=== PATIENT | female | born 1945 | race Caucasian/White ===

== ENCOUNTER → 2017-04-09 | Outpatient (CLI) | payer MEDICARE ==
--- NOTE | 2017-04-09 14:02 | US ---
EXAMINATION TYPE: US carotid duplex BILAT DATE OF EXAM: 04/09/2017 COMPARISON: Prior carotid ultrasound February 01, 2013 CLINICAL HISTORY: I65.23 Carotid occlusive disease per order. EXAM MEASUREMENTS: RIGHT: Peak Systolic Velocity (PSV) cm/sec ----- Right CCA: 50.3 ----- Right ICA: 60.2 ----- Right ECA: 72.4 ICA/CCA ratio: 1.2 RIGHT: End Diastole cm/sec ----- Right CCA: 17.5 ----- Right ICA: 60.2 ----- Right ECA: 0.0 LEFT: Peak Systolic Velocity (PSV) cm/sec ----- Left CCA: 55.9 ----- Left ICA: 66.0 ----- Left ECA: 68.0 ICA/CCA ratio: 1.2 LEFT: End Diastole cm/sec ----- Left CCA: 11.1 ----- Left ICA: 25.8 ----- Left ECA: 0.0 VERTEBRALS (direction of flow): Right Vertebral: Antegrade Left Vertebral: Antegrade Slight bilateral wall thickening. No elevated velocities or significant stenosis. Plaque seen in bi lateral bulbs. Grayscale images redemonstrate mild peripheral plaque at bilateral carotid bulbs, left greater than r ight. Velocity measurements and ratios remain within normal limits in visualized portion of both inte rnal carotid arteries. IMPRESSION: Mild atherosclerotic change bilaterally redemonstrated without hemodynamically significa nt stenosis clearly seen in either internal carotid artery. Criteria for Assigning % of Stenosis / Diameter reduction (Estimation based on the indirect measurements of the internal carotid artery velocities (ICA PSV). 1. Normal (no stenosis)=ICA PSV < 125 cm/s: ratio < 2.0: ICA EDV<40 cm/s. 2. Less than 50% stenosis=ICA PSV < 125 cm/s: ratio < 2.0: ICA EDV<40 cm/s. 3. 50 to 69% stenosis=ICA PSV of 125 to 230 cm/s: ration 2.0 ? 4.0: ICA EDV 40-100 cm/s. 4. Greater than 70% stenosis to near occlusion= ICA PSV > 230 cm/s: ratio > 4.0: ICA EDV > 100 cm/s. 5. Near occlusion= ICA PSV velocities may be low or undetectable: variable ratio and ICA EDV. 6. Total occlusion=unable to detect flow.
== END ==
LOC: RADUSWWP 12:42
PROVIDERS: ATTEND Family Medicine
DX: I70.90 Unspecified atherosclerosis (principal)
CPT/HCPCS: 93880

== ENCOUNTER → 2017-05-14 | Outpatient (CLI) | payer MEDICARE ==
--- NOTE | 2017-05-15 08:55 | MM ---
Reason for exam: screening (asymptomatic). Last mammogram was performed 1 year and 3 months ago. History: Patient is postmenopausal, has history of endometrial cancer at age 33, and is nulliparous. Family history of breast cancer in maternal aunt at age 55. Physical Findings: A clinical breast exam by your physician is recommended on an annual basis and results should be correlated with mammographic findings. MG 3D Screening Mammo W/Cad Bilateral CC and MLO view(s) were taken. Prior study comparison: February 02, 2016, bilateral MG 3d screening mammo w/cad. August 09, 2004, bilateral diagnostic mammogram. The breast tissue is extremely dense which could obscure a lesion on mammography. Stable benign calcifications. There is chronic nodularity bilaterally. There is no dominant lesion. No significant changes when compared with prior studies. ASSESSMENT: Benign, BI-RAD 2 RECOMMENDATION: Routine screening mammogram of both breasts in 1 year.
== END | disposition home or self-care (01) ==
LOC: RADMAMWWP 16:31
PROVIDERS: ATTEND Family Medicine
DX: Z12.31 Encounter for screening mammogram for malignant neoplasm of breast (principal)
CPT/HCPCS: 77063; G0202

== ENCOUNTER → 2017-10-17 | Outpatient (CLI) | payer MEDICARE ==
[2017-10-17 16:59] LABS: HCT 32.7 % (34.0-46.0); HGB 10.4 gm/dL (11.4-16.0); MCH 29.1 pg (25.0-35.0); MCHC 31.8 g/dL (31.0-37.0); MCV 91.6 fL (80.0-100.0); Mean Platelet Volume 6.4; Platelet Count 335 k/uL (150-450); RBC 3.57 m/uL (3.80-5.40); RDW 12.8 % (11.5-15.5); WBC 7.1 k/uL (3.8-10.6)
[2017-10-17 17:15] LABS: Albumin 4.4 g/dL (3.5-5.0); Calcium 9.9 mg/dL (8.4-10.2); Phosphorus 2.9 mg/dL (2.5-4.5); Potassium 4.5 mmol/L (3.5-5.1); Total Bilirubin 0.3 mg/dL (0.2-1.3); Total Protein 7.8 g/dL (6.3-8.2)
[2017-10-17 17:33] LABS: Appearance,Urine Clear (Clear); Bilirubin,Urine Negative (Negative); Blood,Urine Negative (Negative); Color,Urine Light Yellow; Glucose,Urine (UA) 3+ (Negative); Hyaline Casts,Urine 17 /lpf (0-2); Ketones,Urine Negative (Negative); Leukocyte Esterase,Urine Large (Negative); Mucus,Urine Rare /hpf; Nitrite,Urine Negative (Negative); Protein,Urine Negative (Negative); RBC,Urine 3 /hpf (0-5); Specific Gravity,Urine 1.008 (1.001-1.035); Urobilinogen,Urine <2.0 mg/dL (<2.0); WBC,Urine 13 /hpf (0-5)
== END | disposition home or self-care (01) ==
LOC: LABWHC1 16:35
PROVIDERS: ATTEND Internal Medicine Nephrology
DX: N39.0 Urinary tract infection, site not specified (principal); E83.39 Other disorders of phosphorus metabolism; D64.9 Anemia, unspecified
CPT/HCPCS: 36415; 80053; 81001; 84100; 85027

== ENCOUNTER → 2017-11-05 | Outpatient (CLI) | payer MEDICARE ==
--- NOTE | 2017-11-05 10:04 | US ---
EXAMINATION TYPE: US kidneys/renal and bladder DATE OF EXAM: 11/05/2017 COMPARISON: NONE CLINICAL HISTORY: N18.3 Chronic Kidney Disease Stage 3. EXAM MEASUREMENTS: Right Kidney: 9.0 x 4.8 x 4.1cm Left Kidney: 9.9 x 4.4 x 5.1 cm Post Void Residual Volume: none visualized to measure Right Kidney: upper mid cortical cyst is seen = 0.7 x 0.7 x 0.5cm; couple of microcalcifications are noted mid pole; thinner renal cortex Left Kidney: lateral cortical cyst is imaged = 0.7 x 0.6 x 0.6cm; microcalcification is noted lateral mid pole Bladder: not fully distended Bilateral Jets seen: only right ureteral jet was seen Normal Post Void Residual: yes There is no evidence for hydronephrosis at this point in time. IMPRESSION: 1. Bladder is limited in distention. Evaluation therefore limited. 2. There is increased renal cortical echogenicity correlate for chronic medical renal disease. 3. Nonobstructing tiny bilateral renal calculi.
== END | disposition home or self-care (01) ==
LOC: RADUSWWP 09:03
PROVIDERS: ATTEND Internal Medicine Nephrology
DX: N20.0 Calculus of kidney (principal); N18.3 Chronic kidney disease, stage 3 (moderate)
CPT/HCPCS: 76770

== ENCOUNTER → 2017-11-12 | Outpatient (CLI) | payer MEDICARE ==
[2017-11-12 12:47] LABS: Appearance,Urine Clear (Clear); Bilirubin,Urine Negative (Negative); Blood,Urine Negative (Negative); Color,Urine Light Yellow; Glucose,Urine (UA) 4+ (Negative); Ketones,Urine Negative (Negative); Leukocyte Esterase,Urine Negative (Negative); Nitrite,Urine Negative (Negative); Protein,Urine Negative (Negative); Specific Gravity,Urine 1.007 (1.001-1.035); Urobilinogen,Urine <2.0 mg/dL (<2.0)
[2017-11-12 12:55] LABS: Basophils # (A) 0.1 k/uL (0-0.2); Basophils % (A) 1 %; Eosinophils # (A) 0.2 k/uL (0-0.7); Eosinophils % (A) 2 %; HCT 32.1 % (34.0-46.0); Hypochromasia Slight; Lymphocytes # (A) 1.4 k/uL (1.0-4.8); Lymphocytes % (A) 21 %; MCH 28.3 pg (25.0-35.0); MCHC 31.1 g/dL (31.0-37.0); Mean Platelet Volume 6.5; Monocytes # (A) 0.4 k/uL (0-1.0); Monocytes % (A) 5 %; Neutrophils # (A) 4.5 k/uL (1.3-7.7); Neutrophils % (A) 67 %; Platelet Count 331 k/uL (150-450); RBC 3.53 m/uL (3.80-5.40); RDW 13.3 % (11.5-15.5); WBC 6.7 k/uL (3.8-10.6)
[2017-11-12 13:29] LABS: Albumin 4.1 g/dL (3.5-5.0); Calcium 10.1 mg/dL (8.4-10.2); Magnesium 1.4 mg/dL (1.6-2.3); Phosphorus 3.5 mg/dL (2.5-4.5); Potassium 4.8 mmol/L (3.5-5.1); Uric Acid 5.6 mg/dL (3.7-7.4)
[2017-11-12 13:45] LABS: Creatinine,Urine Random 33.6 mg/dL
[2017-11-12 19:11] LABS: Iron Saturation 15.63 (12.00-45.00)
[2017-11-12 19:19] LABS: Vitamin D 25 Hydroxy 31.1 ng/mL (30.0-100.0)
[2017-11-12 20:33] LABS: Parathyroid Hormone Intact 19.7 pg/mL (14.0-72.0)
[2017-11-13 16:25] LABS: Albumin 4.05 g/dL (3.80-4.90); Gamma Globulin 0.97 g/dL (0.70-1.50)
== END | disposition home or self-care (01) ==
LOC: LABWHC1 12:02
PROVIDERS: ATTEND Internal Medicine Nephrology
DX: N18.3 Chronic kidney disease, stage 3 (moderate) (principal); D64.9 Anemia, unspecified; E55.9 Vitamin D deficiency, unspecified; E21.3 Hyperparathyroidism, unspecified; M10.9 Gout, unspecified; N39.0 Urinary tract infection, site not specified; R80.9 Proteinuria, unspecified
CPT/HCPCS: 36415; 80048; 81003; 82040; 82306; 82570; 82728; 83540; 83550; 83735; 83970; 84100; 84156; 84165; 84550; 85025; 86335

== ENCOUNTER → 2018-01-14 | Outpatient (CLI) | payer MEDICARE ==
--- NOTE | 2018-01-15 07:47 | US ---
EXAMINATION TYPE: US thyroid st tissue head/neck DATE OF EXAM: 01/14/2018 COMPARISON: EXAMINATION TYPE: US thyroid st tissue head/neck DATE OF EXAM: 01/14/2018 COMPARISON: NONE CLINICAL HISTORY: R59.9 ENLARGED LYMPH. Palpable areas bilaterally FINDINGS/TECHNIQUE: Targeted sonographic images were performed of the neck in the area of the patient 's palpable abnormality. 0.6cm normal appearing lymph nodes seen bilaterally where patient feels them. No abnormality seen. IMPRESSION: Sonographically normal appearing lymph nodes in both size and morphology and the patient 's area of palpable abnormality.
== END | disposition home or self-care (01) ==
LOC: RADUSWWP 15:58
PROVIDERS: ATTEND Family Medicine
DX: R59.9 Enlarged lymph nodes, unspecified (principal)
CPT/HCPCS: 76536

== ENCOUNTER 2018-03-30 09:52 | Day surgery (SDC) | payer MEDICARE ==
[2018-03-26 15:25] VITALS: BMI 23.1
[~2018-03-30 09:52] MED LIST: CLINDAMYCIN 900 MG in DEXTROSE 5% IN WATER 50 ML IVPB ONE; SODIUM CHLORIDE 0.9% 1,000 ML IV SCH
[2018-03-30 10:21] VITALS: RESP 16; TEMP 99
[2018-03-30] MEDS ORDERED: LIDOCAINE 1% INJ 10MG/ML (20 ML MDV) ONE (10:44)
[2018-03-30 10:46] LABS: Glucose,Whole Blood 95 mg/dL (75-99)
[2018-03-30] MEDS ORDERED: MIDAZOLAM 2 MG/2 ML VIAL ONE (11:02)
[2018-03-30] MEDS ORDERED: MIDAZOLAM 2 MG/2 ML VIAL IV ONE (11:04)
--- NOTE | 2018-03-30 11:15 | P.PCN ---
Preoperative Diagnosis: Loop monitor implant Primary physicians: Dr. Roe Vehicle Modification Technician: Dr. Bermudez Indication: Recurrent syncope Patient was brought to the EP lab in a fasting state. Written informed consent was obtained prior to the procedure. The left pectoral area was prepped and draped per protocol. Intravenous antibiotic was administered preoperatively. A subcutaneous Loop monitor was implanted successfully and the wound was closed per protocol. The device was programmed to detect significant sania- arrhythmic and tachy-arrhythmic events, per protocol. Device and programming details: Syncope protocol Patient underwent EP procedure under conscious sedation/moderate sedation, monitoring of the level of consciousness and physiologic parameters including but not limited to vital signs and oxygenation. Patient tolerated the procedure well without any acute complications. Start time: 1104 Stop time: 1110 Condition: stable
[2018-03-30 11:41] VITALS: BP 122/60; PULSE 73
== END 2018-03-30 12:02 | disposition home or self-care (01) ==
LOC: CATHEP 09:52
PROVIDERS: ATTEND Internal Medicine Clinical Cardiac Electrophysiology
DX: R55 Syncope and collapse (principal); E78.5 Hyperlipidemia, unspecified; E11.22 Type 2 diabetes mellitus with diabetic chronic kidney disease; I12.9 Hypertensive chronic kidney disease with stage 1 through stage 4 chronic kidney disease, or unspecified chronic kidney disease; N18.3 Chronic kidney disease, stage 3 (moderate); D64.9 Anemia, unspecified; R54 Age-related physical debility; J44.9 Chronic obstructive pulmonary disease, unspecified; E07.9 Disorder of thyroid, unspecified; Z82.49 Family history of ischemic heart disease and other diseases of the circulatory system; Z79.890 Hormone replacement therapy; Z79.84 Long term (current) use of oral hypoglycemic drugs; Z79.899 Other long term (current) drug therapy; Z88.0 Allergy status to penicillin
CPT/HCPCS: 33282; C1764; J2250

== ENCOUNTER → 2018-04-01 | Outpatient (CLI) | payer MEDICARE ==
[2018-04-01 11:57] LABS: Appearance,Urine Clear (Clear); Bilirubin,Urine Negative (Negative); Blood,Urine Negative (Negative); Color,Urine Light Yellow; Glucose,Urine (UA) 4+ (Negative); Ketones,Urine Negative (Negative); Leukocyte Esterase,Urine Negative (Negative); Nitrite,Urine Negative (Negative); PH, Urine 6.5 (5.0-8.0); Protein,Urine Negative (Negative); Specific Gravity,Urine 1.007 (1.001-1.035); Urobilinogen,Urine <2.0 mg/dL (<2.0)
[2018-04-01 12:01] LABS: Basophils # (A) 0.1 k/uL (0-0.2); Basophils % (A) 1 %; Eosinophils # (A) 0.2 k/uL (0-0.7); Eosinophils % (A) 3 %; HCT 35.6 % (34.0-46.0); HGB 11.7 gm/dL (11.4-16.0); Lymphocytes # (A) 1.3 k/uL (1.0-4.8); Lymphocytes % (A) 19 %; MCHC 32.8 g/dL (31.0-37.0); MCV 97.7 fL (80.0-100.0); Mean Platelet Volume 6.2; Monocytes # (A) 0.3 k/uL (0-1.0); Monocytes % (A) 5 %; Neutrophils % (A) 70 %; Platelet Count 301 k/uL (150-450); RBC 3.65 m/uL (3.80-5.40); RDW 12.6 % (11.5-15.5); WBC 7.1 k/uL (3.8-10.6)
[2018-04-01 12:52] LABS: Magnesium 1.5 mg/dL (1.6-2.3); Phosphorus 3.4 mg/dL (2.5-4.5); Potassium 4.6 mmol/L (3.5-5.1); Uric Acid 6.1 mg/dL (3.7-7.4)
[2018-04-01 13:56] LABS: Creatinine,Urine Random 25.2 mg/dL
[2018-04-01 20:01] LABS: Parathyroid Hormone Intact 17.3 pg/mL (14.0-72.0)
[2018-04-01 20:52] LABS: Iron Saturation 30.25 (12.00-45.00)
[2018-04-01 21:02] LABS: Vitamin D 25 Hydroxy 27.7 ng/mL (30.0-100.0)
== END | disposition home or self-care (01) ==
LOC: LABWHC1 11:18
PROVIDERS: ATTEND Nurse Practitioner Family
DX: N18.3 Chronic kidney disease, stage 3 (moderate) (principal); D63.1 Anemia in chronic kidney disease; E55.9 Vitamin D deficiency, unspecified; E21.3 Hyperparathyroidism, unspecified; M10.9 Gout, unspecified; N39.0 Urinary tract infection, site not specified; R80.9 Proteinuria, unspecified
CPT/HCPCS: 36415; 80048; 81003; 82306; 82570; 82728; 83540; 83550; 83735; 83970; 84100; 84156; 84550; 85025

== ENCOUNTER 2018-05-22 08:27 | Observation (INO) | payer MEDICARE ==
[2018-05-22] MEDS ORDERED: RX INFO: IV CONTRAST WAS GIVEN 1 EACH MISC MISCELLANE PRN (08:58)
--- NOTE | 2018-05-22 09:02 | ED ---
General Adult HPI - General Chief complaint: Fall Stated complaint: fall Time Seen by Provider: 05/22/18 08:42 Source: patient, RN notes reviewed Mode of arrival: wheelchair Limitations: no limitations - History of Present Illness Initial comments: Patient 73-year-old female presenting to the emergency room today with a chief complaint of a fall that occurred approximately 2 hours ago. Patient does admit that she was sleeping in her chair when she realized the time was cleared. Got up quickly took a few steps lost her balance falling down to some shelving on the left side. Does admit to some pain to the left shoulder and left upper chest. Patient also notes pain to the left cheek and chin area. Patient states she did not lose consciousness. Did not become lightheaded or dizzy. Denies any nausea or vomiting. Denies headache, any new pain to neck, back, legs. Patient denies any chest pain, shortness breath or difficulty breathing. Denies any visual change. - Related Data Home Medications Medication Instructions Recorded Confirmed Citalopram Hydrobromide [CeleXA] 40 mg PO DAILY 10/15/14 05/22/18 LORazepam [Ativan] 0.5 mg PO TID PRN 10/15/14 05/22/18 Naproxen 500 mg PO DAILY 10/15/14 05/22/18 Potassium Chloride [Klor-Con 10] 10 meq PO MOWEFR 10/15/14 05/22/18 Simvastatin [Zocor] 20 mg PO DAILY 10/15/14 05/22/18 Meclizine [Antivert] 25 mg PO TID PRN 09/18/15 05/22/18 Furosemide [Lasix] 40 mg PO MOWEFR 05/30/16 05/22/18 Levothyroxine Sodium [Synthroid] 100 mcg PO DAILY 05/30/16 05/22/18 Canagliflozin/Metformin HCl 1 each PO BID 03/26/18 05/22/18 [Invokamet 150-1,000 mg Tablet] Acetaminophen [Tylenol] 500 mg PO Q4-6H PRN 05/22/18 05/22/18 Empagliflozin/Metformin HCl 1 tab PO DAILY 05/22/18 05/22/18 [Synjardy 12.5-500 mg Tablet] Magnesium 300 mg PO DAILY 05/22/18 05/22/18 Metoclopramide [Reglan] 10 mg PO DAILY 05/22/18 05/22/18 Omeprazole [PriLOSEC] 20 mg PO DAILY 05/22/18 05/22/18 Timolol [Betimol 0.5% Ophth Soln] 1 drop BOTH EYES DAILY 05/22/18 05/22/18 Vit C/E/Zn/Coppr/Lutein/Zeaxan 2 cap PO DAILY 05/22/18 05/22/18 [Preservision Areds 2 Softgel] busPIRone HCL 30 mg PO HS 05/22/18 05/22/18 traMADol HCL [Ultram] 50 mg PO HS PRN 05/22/18 05/22/18 Allergies Allergy/AdvReac Type Severity Reaction Status Date / Time Penicillins Allergy ANNIE'S Verified 05/22/18 08:57 SYNDROME Review of Systems ROS Statement: Those systems with pertinent positive or pertinent negative responses have been documented in the HPI. ROS Other: All systems not noted in ROS Statement are negative. Past Medical History Past Medical History: Diabetes Mellitus, Fibromyalgia, Osteoarthritis (OA), Renal Disease Additional Past Medical History / Comment(s): depression, uterine ca. recent unexplained weight loss, onset of frequent dizziness x 1 month. stage 3 kidney failure History of Any Multi-Drug Resistant Organisms: None Reported Past Surgical History: Adenoidectomy, Back Surgery, Bariatric Surgery, Cholecystectomy, Hysterectomy, Tonsillectomy Additional Past Surgical History / Comment(s): implanted heart monitor Past Psychological History: Anxiety, Depression Smoking Status: Never smoker Past Alcohol Use History: None Reported Past Drug Use History: None Reported General Exam - General Exam Comments Initial Comments: General: The patient is awake and alert, in no distress, and does not appear acutely ill. Eye: Pupils are equal, round and reactive to light, extra-ocular movements are intact. No nystagmus. There is normal conjunctiva bilaterally. No signs of icterus. Ears, nose, mouth and throat: There are moist mucous membranes and no oral lesions. Patient does have tenderness to the left cheek and left lower jaw. Some bruising in this area. Able to fully open and close mouth. Neck: The neck is supple, there is no tenderness or JVD. Cardiovascular: There is a regular rate and rhythm. No murmur, rub or gallop is appreciated. Respiratory: Lungs are clear to auscultation, respirations are non-labored, breath sounds are equal. No wheezes, stridor, rales, or rhonchi. Gastrointestinal: Soft, non-distended, non-tender abdomen without masses or organomegaly noted. There is no rebound or guarding present. No CVA tenderness. Musculoskeletal: Normal ROM. No step-off deformity to the cervical, thoracic or lumbar spine. Does have tenderness over the anterior left shoulder. Tender over the left clavicle and left upper anterior ribs. Strength 5/5. Sensation intact. Pulses equal bilaterally 2+. Neurological: A&O x 3. CN II-XII intact, There are no obvious motor or sensory deficits. Coordination appears grossly intact. Speech is normal. Skin: Hematoma located to the left anterior chest wall and left cheek. Psychiatric: Cooperative, appropriate mood & affect, normal judgment. Limitations: no limitations Course Vital Signs 05/22/18 05/22/18 05/22/18 08:29 10:37 12:00 Temperature 98.2 F Pulse Rate 75 85 90 Respiratory 18 17 17 Rate Blood Pressure 111/59 119/58 120/58 O2 Sat by Pulse 99 96 98 Oximetry Medical Decision Making - Medical Decision Making Patient's a CT of the head and neck have been reviewed. Does show evidence for old blowout fracture on the left. Patient's CT of the chest was negative for any acute abnormalities. Patient's labs been reviewed. Does show mildly elevated BUN/creatinine consistent with patient's previous labs. Patient had syncopal episode earlier today. Case discussed with attending physician Dr. Vega who did discuss the case with Dr. Justin who recommends admission EEG, carotid duplex, echocardiogram, with cardiology consult. - Lab Data Result diagrams: 05/22/18 09:09 05/22/18 09:09 Lab Results 05/22/18 05/22/18 05/22/18 Range/Units 09:09 09:09 09:09 WBC 7.6 (3.8-10.6) k/uL RBC 3.55 L (3.80-5.40) m/uL Hgb 11.2 L (11.4-16.0) gm/dL Hct 34.3 (34.0-46.0) % MCV 96.7 (80.0-100.0) fL MCH 31.6 (25.0-35.0) pg MCHC 32.6 (31.0-37.0) g/dL RDW 12.2 (11.5-15.5) % Plt Count 289 (150-450) k/uL Neutrophils % 75 % Lymphocytes % 16 % Monocytes % 5 % Eosinophils % 2 % Basophils % 1 % Neutrophils # 5.7 (1.3-7.7) k/uL Lymphocytes # 1.2 (1.0-4.8) k/uL Monocytes # 0.4 (0-1.0) k/uL Eosinophils # 0.2 (0-0.7) k/uL Basophils # 0.0 (0-0.2) k/uL PT (9.0-12.0) sec INR (<1.2) APTT (22.0-30.0) sec Sodium 139 (137-145) mmol/L Potassium 4.9 (3.5-5.1) mmol/L Chloride 100 (98-107) mmol/L Carbon Dioxide 26 (22-30) mmol/L Anion Gap 13 mmol/L BUN 37 H (7-17) mg/dL Creatinine 1.20 H (0.52-1.04) mg/dL Est GFR (CKD-EPI)AfAm 52 (>60 ml/min/1.73 sqM) Est GFR (CKD-EPI)NonAf 45 (>60 ml/min/1.73 sqM) Glucose 122 H (74-99) mg/dL Calcium 10.1 (8.4-10.2) mg/dL Total Bilirubin 0.3 (0.2-1.3) mg/dL AST 21 (14-36) U/L ALT 18 (9-52) U/L Alkaline Phosphatase 70 (38-126) U/L Total Creatine Kinase 47 (30-135) U/L CK-MB (CK-2) 1.2 (0.0-2.4) ng/mL CK-MB (CK-2) Rel Index 2.6 Troponin I <0.012 (0.000-0.034) ng/mL Total Protein 7.2 (6.3-8.2) g/dL Albumin 4.3 (3.5-5.0) g/dL Urine Color Urine Appearance (Clear) Urine pH (5.0-8.0) Ur Specific Eden (1.001-1.035) Urine Protein (Negative) Urine Glucose (UA) (Negative) Urine Ketones (Negative) Urine Blood (Negative) Urine Nitrite (Negative) Urine Bilirubin (Negative) Urine Urobilinogen (<2.0) mg/dL Ur Leukocyte Esterase (Negative) Urine RBC (0-5) /hpf Urine WBC (0-5) /hpf Ur Squamous Epith Cells (0-4) /hpf Hyaline Casts (0-2) /lpf 05/22/18 05/22/18 Range/Units 09:09 09:09 WBC (3.8-10.6) k/uL RBC (3.80-5.40) m/uL Hgb (11.4-16.0) gm/dL Hct (34.0-46.0) % MCV (80.0-100.0) fL MCH (25.0-35.0) pg MCHC (31.0-37.0) g/dL RDW (11.5-15.5) % Plt Count (150-450) k/uL Neutrophils % % Lymphocytes % % Monocytes % % Eosinophils % % Basophils % % Neutrophils # (1.3-7.7) k/uL Lymphocytes # (1.0-4.8) k/uL Monocytes # (0-1.0) k/uL Eosinophils # (0-0.7) k/uL Basophils # (0-0.2) k/uL PT 9.6 (9.0-12.0) sec INR 1.0 (<1.2) APTT 21.7 L (22.0-30.0) sec Sodium (137-145) mmol/L Potassium (3.5-5.1) mmol/L Chloride (98-107) mmol/L Carbon Dioxide (22-30) mmol/L Anion Gap mmol/L BUN (7-17) mg/dL Creatinine (0.52-1.04) mg/dL Est GFR (CKD-EPI)AfAm (>60 ml/min/1.73 sqM) Est GFR (CKD-EPI)NonAf (>60 ml/min/1.73 sqM) Glucose (74-99) mg/dL Calcium (8.4-10.2) mg/dL Total Bilirubin (0.2-1.3) mg/dL AST (14-36) U/L ALT (9-52) U/L Alkaline Phosphatase (38-126) U/L Total Creatine Kinase (30-135) U/L CK-MB (CK-2) (0.0-2.4) ng/mL CK-MB (CK-2) Rel Index Troponin I (0.000-0.034) ng/mL Total Protein (6.3-8.2) g/dL Albumin (3.5-5.0) g/dL Urine Color Light Yellow Urine Appearance Clear (Clear) Urine pH 6.0 (5.0-8.0) Ur Specific Eden 1.011 (1.001-1.035) Urine Protein Negative (Negative) Urine Glucose (UA) 4+ H (Negative) Urine Ketones Negative (Negative) Urine Blood Negative (Negative) Urine Nitrite Negative (Negative) Urine Bilirubin Negative (Negative) Urine Urobilinogen <2.0 (<2.0) mg/dL Ur Leukocyte Esterase Trace H (Negative) Urine RBC 1 (0-5) /hpf Urine WBC 1 (0-5) /hpf Ur Squamous Epith Cells <1 (0-4) /hpf Hyaline Casts 3 H (0-2) /lpf Disposition Clinical Impression: Syncope, Chest wall contusion, Facial contusion Disposition: ADMITTED IP TO THIS HOSP Condition: Stable Is patient prescribed a controlled substance at d/c from ED?: No Referrals: Herberth Roe DO [Primary Care Provider] - 1-2 days Time of Disposition: 13:30
[2018-05-22] MEDS ORDERED: SODIUM CHLORIDE 0.9% 1,000 ML IV STA (09:20)
[2018-05-22 09:46] LABS: Basophils % (A) 1 %; Eosinophils # (A) 0.2 k/uL (0-0.7); Eosinophils % (A) 2 %; HCT 34.3 % (34.0-46.0); HGB 11.2 gm/dL (11.4-16.0); Lymphocytes # (A) 1.2 k/uL (1.0-4.8); Lymphocytes % (A) 16 %; MCH 31.6 pg (25.0-35.0); MCHC 32.6 g/dL (31.0-37.0); MCV 96.7 fL (80.0-100.0); Mean Platelet Volume 6.8; Monocytes # (A) 0.4 k/uL (0-1.0); Monocytes % (A) 5 %; Neutrophils # (A) 5.7 k/uL (1.3-7.7); Neutrophils % (A) 75 %; Platelet Count 289 k/uL (150-450); RBC 3.55 m/uL (3.80-5.40); RDW 12.2 % (11.5-15.5); WBC 7.6 k/uL (3.8-10.6)
[2018-05-22 09:49] LABS: Appearance,Urine Clear (Clear); Bilirubin,Urine Negative (Negative); Blood,Urine Negative (Negative); Color,Urine Light Yellow; Glucose,Urine (UA) 4+ (Negative); Hyaline Casts,Urine 3 /lpf (0-2); Ketones,Urine Negative (Negative); Leukocyte Esterase,Urine Trace (Negative); Nitrite,Urine Negative (Negative); Protein,Urine Negative (Negative); RBC,Urine 1 /hpf (0-5); Specific Gravity,Urine 1.011 (1.001-1.035); Squamous Epithelial Cell,Urine <1 /hpf (0-4); Urobilinogen,Urine <2.0 mg/dL (<2.0); WBC,Urine 1 /hpf (0-5)
[2018-05-22 09:55] LABS: Albumin 4.3 g/dL (3.5-5.0); Calcium 10.1 mg/dL (8.4-10.2); Potassium 4.9 mmol/L (3.5-5.1); Total Bilirubin 0.3 mg/dL (0.2-1.3); Total Protein 7.2 g/dL (6.3-8.2)
[2018-05-22 10:02] LABS: Creatine Kinase 47 U/L (30-135)
[2018-05-22 10:11] LABS: Prothrombin Time 9.6 sec (9.0-12.0)
[2018-05-22 10:14] LABS: Partial Thromboplastin Time 21.7 sec (22.0-30.0)
[2018-05-22 10:15] LABS: Creatine Kinase MB 1.2 ng/mL (0.0-2.4); Troponin I <0.012 ng/mL (0.000-0.034)
--- NOTE | 2018-05-22 10:52 | CT ---
EXAMINATION TYPE: CT brain kiley jama DATE OF EXAM: 05/22/2018 COMPARISON: 07/24/2016 HISTORY: Pain post fall CT DLP: 1391.[address] of the brain was performed. The ventricles, basal cisterns and sulci overlying the cerebral convexities demonstrate enlargement. There is no evidence for intracranial hemorrhage or sulcal effacement. There is decreased attenuatio n about the periventricular white matter and deep white matter of both cerebral hemispheres, compatib le with chronic small vessel ischemia. No mass effects are seen. If symptoms persist consider MRI. Osseous calvarium is intact. IMPRESSION: 1. Age related atrophic and chronic small vessel ischemic change without acute intracranial process seen at this time. CT Cervical Spine: Unenhanced CT of the cervical spine was performed with bone and soft tissue window settings submitted . Coronal and sagittal reconstruction is obtained. Chronic anterolisthesis of C3 on C4 of 3 mm and C4 on C5 of 2 mm. No evidence for acute cervical frac ture . Scattered degenerative disc disease and spondylosis. Biapical scarring. IMPRESSION: 1. No evidence for acute fracture or subluxation of the cervical spine.
--- NOTE | 2018-05-22 10:55 | CT ---
EXAMINATION TYPE: CT facial bones wo con DATE OF EXAM: 05/22/2018 COMPARISON: May 30, 2016 HISTORY: Pain post fall. CT DLP: 571.[address] of the facial bones was performed in the axial and coronal planes. Bone and soft tissu e window settings are submitted. No significant soft tissue swelling is appreciated. I do not see evidence for acute displaced facial bone fracture or depressed facial bone fracture. T here appears be chronic a blowout fracture involving the floor of the left orbit without muscular ent rapment. The globes are intact. Paranasal sinuses are well-aerated. IMPRESSION: 1. No evidence for acute depressed or displaced facial bone fracture. 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
--- NOTE | 2018-05-22 11:35 | CT ---
EXAMINATION TYPE: CT chest w con DATE OF EXAM: 05/22/2018 COMPARISON: HISTORY: Pain post fall CT DLP: 395.39 mGycm Automated exposure control for dose reduction was used. CONTRAST: CT scan of the chest is performed with IV Contrast, patient injected with 80 mL of Isovue 300. FINDINGS: LUNGS: The lungs are grossly clear, there is no concerning parenchymal mass or nodule identified. T here is no pleural effusion or pneumothorax seen. The tracheobronchial tree is patent. Linear atelec tasis left lung base. MEDIASTINUM: There are no greater than 1 cm hilar or mediastinal lymph nodes. No pericardial effusi on is seen. Thoracic aorta is of normal caliber. The heart is not enlarged. UPPER ABDOMEN: No significant abnormality appreciated. OTHER: Small sliding-type hiatal hernia. IMPRESSION: No visible traumatic injury to the chest at this time.
[2018-05-22] MEDS ORDERED: NALOXONE 0.4 MG/ML 1 ML VIAL IV PRN (13:51)
[2018-05-22] MEDS ORDERED: ONDANSETRON 4 MG/2 ML VIAL IVP PRN (13:51)
[2018-05-22] MEDS ORDERED: SODIUM CHLORIDE 0.9% 1,000 ML IV ONE (13:51)
[2018-05-22] MEDS ORDERED: MECLIZINE 25 MG TAB PO PRN (13:55)
[2018-05-22] MEDS ORDERED: LORazepam 0.5 MG TAB PO PRN (13:55)
--- NOTE | 2018-05-22 14:23 | P.HPIM ---
History of Present Illness H&P Date: 05/22/18 Chief Complaint: fall This is a 73-year-old pleasant lady patient of Dr. Bhupinder Swenson. Underlying history of diabetes mellitus type 2, fibromyalgia, CK D, uterine cancer, dysthymia admitted to the hospital secondary to fall at home. Apparently patient was sleeping in her chair, and when she woke up she got up and took a few steps, lost her balance, was lightheaded and fell on the left side. This occurred 2 hours prior to admission. Patient has pain in the left shoulder, left upper chest, and left cheek patient denies any nausea vomiting or diarrhea, no headache, no neck pain. No shortness of breath and no visible changes. No medication changes from her PCP. patient has an loop recorder placed 2 mos ago. no nuerology. intermittently has spells while sitting down and just taking to people. In the emergency room, she was seen, EKG CAT scan of the brain and CT of the chest failed to reveal any fractures, there is no bleed, CAT scan of the chest only shows some small sliding type hiatal hernia, linear atelectasis left lung, no mass no pleural effusion no pneumothorax CT of the brain shows small valve disease with atrophy, no bleed, cervical spine CT shows chronic anterolisthesis C3-C4, C4-C5 with spondylosis no fractures or subluxation CT of the face shows chronic appearing blowout fracture floor of the left orbit at muscular entrapment labs shows double basic count 7.6 hemoglobin 11.2, creatinine of 1.2 , glucose of 122, troponin 0.012, CK 47, urinalysis is negative except for glucose, and hyaline cast Review of Systems Constitutional: Reports as per HPI, Denies anorexia, Denies chills, Denies chronic headaches, Denies chronic pain, Denies daytime sleepiness, Denies fatigue, Denies fever, Denies lethargy, Denies malaise, Denies night sweats, Denies poor appetite, Denies sweats, Denies weakness, Denies weight gain, Denies weight loss Ears, nose, mouth and throat: Reports as per HPI, Denies ant. neck pain, Denies bleeding gums, Denies dental pain, Denies dysphagia, Denies epistaxis, Denies headache, Denies hoarseness, Denies mouth pain, Denies nasal congestion, Denies nasal discharge, Denies neck fullness/pressure, Denies neck lump, Denies nose pain, Denies odynophagia, Denies post-nasal drip, Denies sinus pain, Denies sinus pressure, Denies swelling in mouth, Denies swelling in throat, Denies sore throat, Denies vertigo, Denies voice changes Cardiovascular: Reports as per HPI Respiratory: Reports as per HPI, Denies congestion, Denies cough, Denies cough with sputum, Denies dyspnea, Denies excessive sputum, Denies hemoptysis, Denies home oxygen, Denies pain, Denies pain on inspiration, Denies pleurisy, Denies respiratory infections, Denies sleep apnea, Denies snoring, Denies wheezing Gastrointestinal: Reports as per HPI, Denies abdominal pain, Denies belching, Denies bloating, Denies BRBPR, Denies change in bowel habits, Denies coffee ground emesis, Denies constipation, Denies diarrhea, Denies dyspepsia, Denies early satiety, Denies excessive gas, Denies heartburn, Denies hematemesis, Denies hematochezia, Denies indigestion, Denies jaundice, Denies lactose intolerance, Denies loss of appetite, Denies melena, Denies nausea, Denies vomiting Genitourinary: Reports as per HPI, Denies abnormal vaginal bleeding, Denies decreased libido, Denies difficulty conceiving, Denies difficulty voiding, Denies dysmenorrhea, Denies dyspareunia, Denies dysuria, Denies flank pain, Denies genital sores, Denies hematuria, Denies hot flashes, Denies incomplete emptying, Denies kidney stones, Denies menorrhagia, Denies mixed incontinence, Denies nocturia, Denies pelvic pain, Denies post void dribbling, Denies , Denies prolapse symptoms, Denies stress incontinence, Denies urge incontinence , Denies urgency, Denies urinary frequency, Denies vaginal discharge, Denies vaginal dryness, Denies vaginal itching, Denies vaginal odor Menstruation: Reports as per HPI Musculoskeletal: Reports as per HPI Integumentary: Reports as per HPI, Denies acne, Denies boils, Denies brittle nails, Denies change in hair/nails, Denies color changes, Denies darkening of skin, Denies depigmentation, Denies dryness, Denies foot/leg ulcers, Denies growths, Denies hirsutism, Denies lesions, Denies onychomycosis, Denies pruritus , Denies rash, Denies sores, Denies striae, Denies unusual bruising, Denies wounds Neurological: Reports as per HPI, Denies aphasia, Denies ataxia, Denies balance difficulties, Denies burning pain, Denies change in mentation, Denies change in smell/taste, Denies change in speech, Denies confusion, Denies convulsions, Denies double vision, Denies gait dysfunction, Denies head injury, Denies headaches, Denies hearing difficulties, Denies lack of coordination, Denies loss of vision, Denies memory loss, Denies migraines, Denies motor disturbance, Denies numbness, Denies paralysis, Denies paresthesias, Denies seizures, Denies sensory deficit, Denies spasticity, Denies syncope, Denies tic, Denies tingling , Denies transient paralysis, Denies tremors, Denies vertigo, Denies weakness, Denies visual changes Psychiatric: Reports as per HPI, Denies anhedonia, Denies anxiety, Denies anxiety attacks, Denies change in appetite, Denies change in libido, Denies change in sleep habits, Denies confusion, Denies depression, Denies difficulty concentrating, Denies disorientation, Denies hallucinations, Denies hopelessness , Denies hypersomnia, Denies insomnia, Denies irritability, Denies memory loss, Denies mood swings, Denies paranoia, Denies sadness/tearfulness, Denies sleep disturbances, Denies suicidal ideation Endocrine: Reports as per HPI Hematologic/Lymphatic: Reports as per HPI, Denies easy bleeding, Denies easy bruising, Denies lymphadenopathy, Denies lymphedema, Denies thrombophilia Allergic/Immunologic: Reports as per HPI, Denies allergic rhinitis, Denies anaphylaxis, Denies angioedema, Denies gluten intolerance, Denies persistent infections, Denies seasonal allergies, Denies urticaria, Denies wheezing Past Medical History Past Medical History: Diabetes Mellitus, Fibromyalgia, Osteoarthritis (OA), Renal Disease Additional Past Medical History / Comment(s): depression, uterine ca. recent unexplained weight loss, onset of frequent dizziness x 1 month. stage 3 kidney failure History of Any Multi-Drug Resistant Organisms: None Reported Past Surgical History: Adenoidectomy, Back Surgery, Bariatric Surgery, Cholecystectomy, Hysterectomy, Tonsillectomy Additional Past Surgical History / Comment(s): implanted heart monitor Past Psychological History: Anxiety, Depression Smoking Status: Never smoker Past Alcohol Use History: None Reported Past Drug Use History: None Reported Medications and Allergies Home Medications Medication Instructions Recorded Confirmed Type Citalopram Hydrobromide [CeleXA] 40 mg PO DAILY 10/15/14 05/22/18 History LORazepam [Ativan] 0.5 mg PO TID PRN 10/15/14 05/22/18 History Naproxen 500 mg PO DAILY 10/15/14 05/22/18 History Potassium Chloride [Klor-Con 10] 10 meq PO MOWEFR 10/15/14 05/22/18 History Simvastatin [Zocor] 20 mg PO DAILY 10/15/14 05/22/18 History Meclizine [Antivert] 25 mg PO TID PRN 09/18/15 05/22/18 History Furosemide [Lasix] 40 mg PO MOWEFR 05/30/16 05/22/18 History Levothyroxine Sodium [Synthroid] 100 mcg PO DAILY 05/30/16 05/22/18 History Canagliflozin/Metformin HCl 1 each PO BID 03/26/18 05/22/18 History [Invokamet 150-1,000 mg Tablet] Acetaminophen [Tylenol] 500 mg PO Q4-6H PRN 05/22/18 05/22/18 History Empagliflozin/Metformin HCl 1 tab PO DAILY 05/22/18 05/22/18 History [Synjardy 12.5-500 mg Tablet] Magnesium 300 mg PO DAILY 05/22/18 05/22/18 History Metoclopramide [Reglan] 10 mg PO DAILY 05/22/18 05/22/18 History Omeprazole [PriLOSEC] 20 mg PO DAILY 05/22/18 05/22/18 History Timolol [Betimol 0.5% Ophth Soln] 1 drop BOTH EYES DAILY 05/22/18 05/22/18 History Vit C/E/Zn/Coppr/Lutein/Zeaxan 2 cap PO DAILY 05/22/18 05/22/18 History [Preservision Areds 2 Softgel] busPIRone HCL 30 mg PO HS 05/22/18 05/22/18 History traMADol HCL [Ultram] 50 mg PO HS PRN 05/22/18 05/22/18 History Allergies Allergy/AdvReac Type Severity Reaction Status Date / Time Penicillins Allergy ANNIE'S Verified 05/22/18 08:57 SYNDROME Physical Exam Vitals: Vital Signs Temp Pulse Resp BP Pulse Ox 05/22/18 12:00 90 17 120/58 98 05/22/18 10:37 85 17 119/58 96 05/22/18 08:29 98.2 F 75 18 111/59 99 Intake and Output 05/21/18 05/22/18 05/22/18 22:59 06:59 14:59 Other: Weight 52.163 kg - Constitutional General appearance: cooperative, no acute distress - EENT Eyes: anicteric sclerae, EOMI, PERRLA, dentition normal, normal appearance ENT: NA/AT, normal oropharynx - Neck Neck: normal ROM - Respiratory Respiratory: bilateral: CTA, negative: diminished, dullness, rales, rhonchi, wheezing - Cardiovascular Rhythm: regular Heart sounds: normal: S1, S2 Abnormal Heart Sounds: no systolic murmur, no diastolic murmur, no rub, no S3 Gallop, no S4 Gallop, no click, no other - Gastrointestinal General gastrointestinal: normal bowel sounds, soft - Integumentary lleft neck bruise abrasion chin left Integumentary: decreased turgor, normal - Neurologic Neurologic: CNII-XII intact - Musculoskeletal Musculoskeletal: gait normal, strength equal bilaterally - Psychiatric Psychiatric: A&O x's 3, appropriate affect, intact judgment & insight Results CBC & Chem 7: 05/22/18 09:09 05/22/18 09:09 Labs: Abnormal Lab Results - Last 24 Hours (Table) 05/22/18 05/22/18 05/22/18 Range/Units 09:09 09:09 09:09 RBC 3.55 L (3.80-5.40) m/uL Hgb 11.2 L (11.4-16.0) gm/dL APTT 21.7 L (22.0-30.0) sec BUN 37 H (7-17) mg/dL Creatinine 1.20 H (0.52-1.04) mg/dL Glucose 122 H (74-99) mg/dL Urine Glucose (UA) (Negative) Ur Leukocyte Esterase (Negative) Hyaline Casts (0-2) /lpf 05/22/18 Range/Units 09:09 RBC (3.80-5.40) m/uL Hgb (11.4-16.0) gm/dL APTT (22.0-30.0) sec BUN (7-17) mg/dL Creatinine (0.52-1.04) mg/dL Glucose (74-99) mg/dL Urine Glucose (UA) 4+ H (Negative) Ur Leukocyte Esterase Trace H (Negative) Hyaline Casts 3 H (0-2) /lpf Laboratory Results WBC 7.6 k/uL (3.8-10.6) 05/22/18 09:09 RBC 3.55 m/uL (3.80-5.40) L 05/22/18 09:09 Hgb 11.2 gm/dL (11.4-16.0) L 05/22/18 09:09 Hct 34.3 % (34.0-46.0) 05/22/18 09:09 MCV 96.7 fL (80.0-100.0) 05/22/18 09:09 MCH 31.6 pg (25.0-35.0) 05/22/18 09:09 MCHC 32.6 g/dL (31.0-37.0) 05/22/18 09:09 RDW 12.2 % (11.5-15.5) 05/22/18 09:09 Plt Count 289 k/uL (150-450) 05/22/18 09:09 Neutrophils % 75 % 05/22/18 09:09 Lymphocytes % 16 % 05/22/18 09:09 Monocytes % 5 % 05/22/18 09:09 Eosinophils % 2 % 05/22/18 09:09 Basophils % 1 % 05/22/18 09:09 Neutrophils # 5.7 k/uL (1.3-7.7) 05/22/18 09:09 Lymphocytes # 1.2 k/uL (1.0-4.8) 05/22/18 09:09 Monocytes # 0.4 k/uL (0-1.0) 05/22/18 09:09 Eosinophils # 0.2 k/uL (0-0.7) 05/22/18 09:09 Basophils # 0.0 k/uL (0-0.2) 05/22/18 09:09 PT 9.6 sec (9.0-12.0) 05/22/18 09:09 INR 1.0 (<1.2) 05/22/18 09:09 APTT 21.7 sec (22.0-30.0) L 05/22/18 09:09 Sodium 139 mmol/L (137-145) 05/22/18 09:09 Potassium 4.9 mmol/L (3.5-5.1) 05/22/18 09:09 Chloride 100 mmol/L (98-107) 05/22/18 09:09 Carbon Dioxide 26 mmol/L (22-30) 05/22/18 09:09 Anion Gap 13 mmol/L 05/22/18 09:09 BUN 37 mg/dL (7-17) H 05/22/18 09:09 Creatinine 1.20 mg/dL (0.52-1.04) H 05/22/18 09:09 Est GFR (CKD-EPI)AfAm 52 (>60 ml/min/1.73 sqM) 05/22/18 09:09 Est GFR (CKD-EPI)NonAf 45 (>60 ml/min/1.73 sqM) 05/22/18 09:09 Glucose 122 mg/dL (74-99) H 05/22/18 09:09 Calcium 10.1 mg/dL (8.4-10.2) 05/22/18 09:09 Total Bilirubin 0.3 mg/dL (0.2-1.3) 05/22/18 09:09 AST 21 U/L (14-36) 05/22/18 09:09 ALT 18 U/L (9-52) 05/22/18 09:09 Alkaline Phosphatase 70 U/L (38-126) 05/22/18 09:09 Total Creatine Kinase 47 U/L (30-135) 05/22/18 09:09 CK-MB (CK-2) 1.2 ng/mL (0.0-2.4) 05/22/18 09:09 CK-MB (CK-2) Rel Index 2.6 05/22/18 09:09 Troponin I <0.012 ng/mL (0.000-0.034) 05/22/18 09:09 Total Protein 7.2 g/dL (6.3-8.2) 05/22/18 09:09 Albumin 4.3 g/dL (3.5-5.0) 05/22/18 09:09 Urine Color Light Yellow 05/22/18 09:09 Urine Appearance Clear (Clear) 05/22/18 09:09 Urine pH 6.0 (5.0-8.0) 05/22/18 09:09 Ur Specific [place] 1.011 (1.001-1.035) 05/22/18 09:09 Urine Protein Negative (Negative) 05/22/18 09:09 Urine Glucose (UA) 4+ (Negative) H 05/22/18 09:09 Urine Ketones Negative (Negative) 05/22/18 09:09 Urine Blood Negative (Negative) 05/22/18 09:09 Urine Nitrite Negative (Negative) 05/22/18 09:09 Urine Bilirubin Negative (Negative) 05/22/18 09:09 Urine Urobilinogen <2.0 mg/dL (<2.0) 05/22/18 09:09 Ur Leukocyte Esterase Trace (Negative) H 05/22/18 09:09 Urine RBC 1 /hpf (0-5) 05/22/18 09:09 Urine WBC 1 /hpf (0-5) 05/22/18 09:09 Ur Squamous Epith Cells <1 /hpf (0-4) 05/22/18 09:09 Hyaline Casts 3 /lpf (0-2) H 05/22/18 09:09 Assessment and Plan Plan: 1. Near syncope, fall at home, patient would be seen consultation by cardiology for arrhythmias, orthostatic vital signs to be done, echocardiogram to be done, serial troponins patient will be observed EEG of the brain was requested, as well as carotid Dopplers patient observed in telemetry unit. consult also with neurologyfor poss of partial seizures. loop recorder event to be evaluated by cardiology 2. presence of loop recorder palced 2 mos ago, with misplacement of device now sitting below left breast 2. Diabetes mellitus type 2, Accu-Cheks to be done Synjardy and invokamet from home patient can bring supplies her creatinine was still allowed his medication GFR of 45 continue to monitor CK D stage 3 GFR of 45 with hyaline cast no proteinuria, patient will be hydrated, orthostatics to be done, as the patient came in with new syncope 4. Fibromyalgia, on tramadol 5. Dysthymia on Celexa BuSpar 6. Hyperlipidemia on Zocor 20 7. Hypothyroidism on levothyroxine 100 g daily 8. Hypertension, on Lasix 40 mg Friday, this can be resumed as long as parameters for blood pressure and orthostasis would allow it 9. Prior history of blowout fracture left orbit in the past, 10. Chronic pain, with CK D stage III, naproxen has to be discontinued GERD on maintenance Prilosec 20
[2018-05-22] MEDS ORDERED: POTASSIUM CHLORIDE ER 10 MEQ TAB.ER.PRT PO SCH (14:30)
[2018-05-22] MEDS ORDERED: FUROSEMIDE 40 MG TAB PO SCH (14:30)
[2018-05-22 15:58] LABS: Creatine Kinase 103 U/L (30-135)
--- NOTE | 2018-05-22 15:58 | US ---
EXAMINATION TYPE: US carotid duplex BILAT DATE OF EXAM: 05/22/2018 COMPARISON: US CLINICAL HISTORY: Pain. Syncope with collapse EXAM MEASUREMENTS: RIGHT: Peak Systolic Velocity (PSV) cm/sec ----- Right CCA: 48.3 ----- Right ICA: 51.9 ----- Right ECA: 75.8 ICA/CCA ratio: 1.1 RIGHT: End Diastole cm/sec ----- Right CCA: 13.5 ----- Right ICA: 19.9 ----- Right ECA: 0.0 LEFT: Peak Systolic Velocity (PSV) cm/sec ----- Left CCA: 68.8 ----- Left ICA: 72.3 ----- Left ECA: 60.3 ICA/CCA ratio: 1.1 LEFT: End Diastole cm/sec ----- Left CCA: 12.1 ----- Left ICA: 24.3 ----- Left ECA: 5.4 VERTEBRALS (direction of flow): Right Vertebral: Antegrade Left Vertebral: Antegrade Rhythm: Arrhythmia No significant stenosis seen IMPRESSION: 1. No significant stenosis. Mild atherosclerotic plaque. 2. Cardiac dysrhythmia Criteria for Assigning % of Stenosis / Diameter reduction (Estimation based on the indirect measurements of the internal carotid artery velocities (ICA PSV). 1. Normal (no stenosis)=ICA PSV < 125 cm/s: ratio < 2.0: ICA EDV<40 cm/s. 2. Less than 50% stenosis=ICA PSV < 125 cm/s: ratio < 2.0: ICA EDV<40 cm/s. 3. 50 to 69% stenosis=ICA PSV of 125 to 230 cm/s: ration 2.0 ? 4.0: ICA EDV 40-100 cm/s. 4. Greater than 70% stenosis to near occlusion= ICA PSV > 230 cm/s: ratio > 4.0: ICA EDV > 100 cm/s. 5. Near occlusion= ICA PSV velocities may be low or undetectable: variable ratio and ICA EDV. 6. Total occlusion=unable to detect flow.
[2018-05-22 16:08] LABS: Troponin I <0.012 ng/mL (0.000-0.034)
[2018-05-22] MEDS: ACETAMINOPHEN TAB 325 MG TAB PO PRN (16:08)
[2018-05-22 16:09] LABS: Creatine Kinase MB 2.5 ng/mL (0.0-2.4)
--- NOTE | 2018-05-22 17:46 | P.CONS ---
History of Present Illness - Reason for Consult Consult date: 05/22/18 Fall - Chief Complaint Fall - History of Present Illness This is a pleasant 73-year-old female being evaluated by the neurology service for a fall. 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 She stood up quickly began to get dizzy, and fell. She denies any loss of consciousness. She got up on her own, but became dizzy she did lose her balance and fell on her left side. She had pain to her left shoulder and left chest left face. Eyes any recent illness or headache. She has been having episodes of dizziness and presyncope which is under the evaluation of cardiology. She has a loop recorder placed for about 2 months. Her EKG in the ER was unremarkable. CT of the brain showed no acute intracranial abnormalities. It did show some age appropriate cerebral atrophy and chronic small vessel ischemic changes. CT of the cervical spine showed no acute changes. No acute changes of the facial CT. Rotted Doppler showed no hemodynamically significant stenosis. There was an arrhythmia noted. She denies any history of seizures. There was no seizure-like activity. There was no tongue biting or sphincter incontinence. At time my exam she is resting comfortably in bed in mild distress from the bruising from her fall. Review of Systems All systems: negative Constitutional: Reports as per HPI Past Medical History Past Medical History: Diabetes Mellitus, Fibromyalgia, GERD/Reflux, Hyperlipidemia, Osteoarthritis (OA), Renal Disease, Thyroid Disorder Additional Past Medical History / Comment(s): uterine ca 50 years ago sx only.past falls, past c2 fx no sx but wore a brace , [place] eyes, uti's,. dizziness at times and occ when sitting will. blank out for few min-last time this happened was 4 months ago. stage 3 kidney failure History of Any Multi-Drug Resistant Organisms: None Reported Past Surgical History: Adenoidectomy, Back Surgery, Bariatric Surgery, Cholecystectomy, Hysterectomy, Tonsillectomy Additional Past Surgical History / Comment(s): loop monitor implanted 03-30-18 Past Anesthesia/Blood Transfusion Reactions: No Reported Reaction Smoking Status: Never smoker - Past Family History Mother Family Medical History: Dementia Father Family Medical History: Myocardial Infarction (ND) Brother(s) Family Medical History: Cancer Additional Family Medical History / Comment(s): samll cell lung ca w/ mets to brain Medications and Allergies Home Medications Medication Instructions Recorded Confirmed Type Citalopram Hydrobromide [CeleXA] 40 mg PO DAILY 10/15/14 05/22/18 History LORazepam [Ativan] 0.5 mg PO TID PRN 10/15/14 05/22/18 History Naproxen 500 mg PO DAILY 10/15/14 05/22/18 History Potassium Chloride [Klor-Con 10] 10 meq PO MOWEFR 10/15/14 05/22/18 History Simvastatin [Zocor] 20 mg PO DAILY 10/15/14 05/22/18 History Meclizine [Antivert] 25 mg PO TID PRN 09/18/15 05/22/18 History Furosemide [Lasix] 40 mg PO MOWEFR 05/30/16 05/22/18 History Levothyroxine Sodium [Synthroid] 100 mcg PO DAILY 05/30/16 05/22/18 History Canagliflozin/Metformin HCl 1 each PO BID 03/26/18 05/22/18 History [Invokamet 150-1,000 mg Tablet] Acetaminophen [Tylenol] 500 mg PO Q4-6H PRN 05/22/18 05/22/18 History Empagliflozin/Metformin HCl 1 tab PO DAILY 05/22/18 05/22/18 History [Synjardy 12.5-500 mg Tablet] Magnesium 300 mg PO DAILY 05/22/18 05/22/18 History Metoclopramide [Reglan] 10 mg PO DAILY 05/22/18 05/22/18 History Omeprazole [PriLOSEC] 20 mg PO DAILY 05/22/18 05/22/18 History Timolol [Betimol 0.5% Ophth Soln] 1 drop BOTH EYES DAILY 05/22/18 05/22/18 History Vit C/E/Zn/Coppr/Lutein/Zeaxan 2 cap PO DAILY 05/22/18 05/22/18 History [Preservision Areds 2 Softgel] busPIRone HCL 30 mg PO HS 05/22/18 05/22/18 History traMADol HCL [Ultram] 50 mg PO HS PRN 05/22/18 05/22/18 History Allergies Allergy/AdvReac Type Severity Reaction Status Date / Time Penicillins Allergy ANNIE'S Verified 05/22/18 08:57 SYNDROME Physical Exam Vitals: Vital Signs Temp Pulse Pulse Pulse Pulse Resp BP 05/22/18 15:16 76 84 72 18 05/22/18 14:46 75 17 132/63 05/22/18 12:00 90 17 120/58 05/22/18 10:37 85 17 119/58 05/22/18 08:29 98.2 F 75 18 111/59 BP BP BP Pulse Ox 05/22/18 15:16 121/71 127/67 116/70 97 05/22/18 14:46 98 05/22/18 12:00 98 05/22/18 10:37 96 05/22/18 08:29 99 Intake and Output 05/22/18 05/22/18 05/22/18 06:59 14:59 22:59 Other: Weight 52.163 kg 52.9 kg - Constitutional General appearance: average body habitus, cooperative, no acute distress - EENT Eyes: no abnormal pupil, EOMI, PERRLA, no ptosis ENT: hearing grossly normal - Neck Neck: normal ROM, no rigidity - Respiratory Respiratory: negative: prolonged expiration, prolonged inspiration - Cardiovascular Rhythm: regular - Gastrointestinal General gastrointestinal: no distended, no tenderness - Neurologic Patient is alert awake and oriented 3. Speech-language are normal. There is no lateralizing weakness. She does have mild to moderate postural tremor in bilateral upper extremities. Resting tremor or cogwheel rigidity. No pronator drift. There is no sensory deficit. No seizure-like activity is seen. Results CBC & Chem 7: 05/22/18 09:09 05/22/18 09:09 Labs: Abnormal Lab Results - Last 24 Hours (Table) 05/22/18 05/22/18 05/22/18 Range/Units 09:09 09:09 09:09 RBC 3.55 L (3.80-5.40) m/uL Hgb 11.2 L (11.4-16.0) gm/dL APTT 21.7 L (22.0-30.0) sec BUN 37 H (7-17) mg/dL Creatinine 1.20 H (0.52-1.04) mg/dL Glucose 122 H (74-99) mg/dL CK-MB (CK-2) (0.0-2.4) ng/mL Urine Glucose (UA) (Negative) Ur Leukocyte Esterase (Negative) Hyaline Casts (0-2) /lpf 05/22/18 05/22/18 Range/Units 09:09 15:08 RBC (3.80-5.40) m/uL Hgb (11.4-16.0) gm/dL APTT (22.0-30.0) sec BUN (7-17) mg/dL Creatinine (0.52-1.04) mg/dL Glucose (74-99) mg/dL CK-MB (CK-2) 2.5 H* (0.0-2.4) ng/mL Urine Glucose (UA) 4+ H (Negative) Ur Leukocyte Esterase Trace H (Negative) Hyaline Casts 3 H (0-2) /lpf Assessment and Plan (1) Near syncope Current Visit: Yes Status: Acute Code(s): R55 - SYNCOPE AND COLLAPSE SNOMED Code(s): 060220506 (2) Cardiac arrhythmia Current Visit: Yes Status: Chronic Code(s): I49.9 - CARDIAC ARRHYTHMIA, UNSPECIFIED SNOMED Code(s): 402278440 (3) Diabetes Current Visit: Yes Status: Chronic Code(s): E11.9 - TYPE 2 DIABETES MELLITUS WITHOUT COMPLICATIONS SNOMED Code(s): 56941559 (4) Essential tremor Current Visit: Yes Status: Chronic Code(s): G25.0 - ESSENTIAL TREMOR SNOMED Code(s): 553310451 Plan: The patient did not experience any goergie syncope. There is no evidence of any seizure activity. An EEG has been ordered. Her episode is likely from her ongoing underlying cardiac arrhythmia which is under investigation by cardiology. Lateralizing or concerning neurological symptoms otherwise. Her tremors are long-standing and she said wax and wane with her anxiety level. No further neurological workup is warranted at this point. Barring any unforeseen abnormalities on her EEG she is cleared from a neurological standpoint. I have performed a history and physical on the above patient. I have reviewed the above note, and agree.
[2018-05-22] MEDS: CANAGLIFLOZIN PO SCH (20:06)
[2018-05-22] MEDS: METFORMIN HCL PO SCH (20:06)
[2018-05-22] MEDS: busPIRone HCl 10 MG TAB PO SCH (20:39)
[2018-05-22] MEDS: traMADol 50 MG TAB PO PRN (20:42)
[2018-05-22 20:48] LABS: Glucose,Whole Blood 113 mg/dL (75-99)
[2018-05-22 21:23] LABS: Creatine Kinase 100 U/L (30-135)
[2018-05-22 21:35] LABS: Creatine Kinase MB 1.5 ng/mL (0.0-2.4); Troponin I <0.012 ng/mL (0.000-0.034)
[2018-05-23] MEDS: ACETAMINOPHEN TAB 325 MG TAB PO PRN ×2 (01:13→23:11)
[2018-05-23 06:04] LABS: Glucose,Whole Blood 91 mg/dL (75-99)
[2018-05-23 06:17] LABS: Basophils % (A) 1 %; Eosinophils # (A) 0.2 k/uL (0-0.7); Eosinophils % (A) 4 %; HCT 29.7 % (34.0-46.0); HGB 9.8 gm/dL (11.4-16.0); Lymphocytes # (A) 1.6 k/uL (1.0-4.8); Lymphocytes % (A) 27 %; MCH 32.6 pg (25.0-35.0); MCHC 33.1 g/dL (31.0-37.0); MCV 98.5 fL (80.0-100.0); Mean Platelet Volume 6.2; Monocytes # (A) 0.5 k/uL (0-1.0); Monocytes % (A) 8 %; Neutrophils # (A) 3.4 k/uL (1.3-7.7); Neutrophils % (A) 58 %; Platelet Count 228 k/uL (150-450); RBC 3.02 m/uL (3.80-5.40); RDW 12.2 % (11.5-15.5); WBC 5.8 k/uL (3.8-10.6)
[2018-05-23 06:30] LABS: Albumin 3.7 g/dL (3.5-5.0); Calcium 9.1 mg/dL (8.4-10.2); Potassium 4.1 mmol/L (3.5-5.1); Total Bilirubin 0.4 mg/dL (0.2-1.3); Total Protein 6.2 g/dL (6.3-8.2)
[2018-05-23] MEDS: LEVOTHYROXINE 100 MCG TAB PO SCH (06:46)
[2018-05-23] MEDS: PANTOPRAZOLE 40 MG TABLET PO SCH (06:46)
--- NOTE | 2018-05-23 08:36 | ECHOF ---
Referral Reason:Syncope MEASUREMENTS -------- HEIGHT: 147.3 cm WEIGHT: 52.2 kg BP: 120/58 RVIDd: 2.2 cm (< 3.3) IVSd: 0.9 cm (0.6 - 1.1) LVIDd: 4.2 cm (3.9 - 5.3) LVPWd: 0.9 cm (0.6 - 1.1) IVSs: 1.2 cm LVIDs: 2.8 cm LVPWs: 1.3 cm LAESV Index (A-L): 19.44 ml/m Ao Diam: 3.2 cm (2.0 - 3.7) AV Cusp: 2.0 cm (1.5 - 2.6) LA Diam: 3.2 cm (2.7 - 3.8) MV E Mason: 0.78 m/s MV DecT: 345 ms MV A Mason: 1.16 m/s MV E/A Ratio: 0.67 RAP: 5.00 mmHg RVSP: 11.22 mmHg FINDINGS -------- Sinus rhythm with extra systolic beats. This was a technically adequate study. The left ventricular size is normal. Left ventricular wall thickness is normal. Overall left vent ricular systolic function is normal with, an EF between 55 - 60 %. The right ventricle is normal in size and function. Normal LA size by volume 22+/-6 ml/m2. The right atrium is normal in size. There is mild aortic valve sclerosis. There is mild aortic regurgitation. There is no evidence of aortic stenosis. Mild mitral annular calcification present. Mild mitral regurgitation is present. Trace tricuspid regurgitation present. Right ventricular systolic pressure is normal at < 35 mmHg. The right ventricular systolic pressure, as measured by Doppler, is 11.22mmHg. The pulmonic valve was not well visualized. There is no pulmonic regurgitation present. The aortic root size is normal. Normal inferior vena cava with normal inspiratory collapse consistent with estimated right atrial pre ssure of 5 mmHg. There is no pericardial effusion. CONCLUSIONS -------- 1. Sinus rhythm with extra systolic beats. 2. This was a technically adequate study. 3. The left ventricular size is normal. 4. Left ventricular wall thickness is normal. 5. Overall left ventricular systolic function is normal with, an EF between 55 - 60 %. 6. Normal LA size by volume 22+/-6 ml/m2. 7. There is mild aortic valve sclerosis. 8. There is mild aortic regurgitation. 9. Mild mitral annular calcification present. 10. Mild mitral regurgitation is present. 11. Trace tricuspid regurgitation present. 12. Right ventricular systolic pressure is normal at < 35 mmHg. 13. The pulmonic valve was not well visualized. 14. There is no pulmonic regurgitation present. 15. The aortic root size is normal. 16. There is no pericardial effusion. BLEACH SUPERVISOR: Virgilio Mahmood RDCS
[2018-05-23] MEDS ORDERED: EMPAGLIFLOZIN PO SCH (09:00)
[2018-05-23] MEDS ORDERED: METFORMIN HCL PO SCH (09:00)
[2018-05-23] MEDS ORDERED: ATORVASTATIN 10 MG TAB PO SCH (09:00)
[2018-05-23] MEDS: NAPROXEN 250 MG TAB PO SCH (09:48)
[2018-05-23] MEDS: METOCLOPRAMIDE 10 MG TAB PO SCH (09:49)
[2018-05-23] MEDS: CANAGLIFLOZIN PO SCH ×2 (09:49→19:57)
[2018-05-23] MEDS: CITALOPRAM HYDROBROMIDE 20 MG TAB PO SCH (09:49)
[2018-05-23] MEDS: METFORMIN HCL PO SCH ×2 (09:49→19:57)
[2018-05-23] MEDS: TIMOLOL 0.5% OPHTH DROPS 5 ML BTL BOTH EYES SCH (11:12)
[2018-05-23 11:48] LABS: Glucose,Whole Blood 118 mg/dL (75-99)
--- NOTE | 2018-05-23 11:55 | P.CRDCN ---
History of Present Illness Consult date: 05/23/18 Requesting physician: Anuradha Justin Consult reason: sycope Chief complaint: Fall, possible syncope History of present illness: This is a pleasant 73-year-old female who follows with Dr. Dolan in the office. She has history of diabetes, hypertension, chronic kidney disease, hyperlipidemia, uterine cancer, who currently has a loop recorder in place, presented to the hospital after a fall possible syncope at home. According to the patient, she had fallen asleep in a chair, she noticed by the time that she needed to her rate to catch a bus, she got up quickly out of the chair in the next thing she recalls is waking up on the floor, she did hit her face and chest against a shelf on the way to falling. She is unsure exactly whether she lost consciousness or not. CAT scan of the head and cervical spine did not reveal evidence for acute fracture or subluxation of the cervical spine. CAT scan of the face did not reveal evidence of acute depressed are displaced facial bones. Chest CT did not reveal any visible traumatic injury at this time. EKG shows normal sinus rhythm with nonspecific ST-T wave changes. Echocardiogram with Doppler study was performed which revealed an ejection fraction of 55-60%. Blood pressure 135/70, orthostatics were obtained here, patient was 105/50 lying 135/70 sitting and 128/68 standing, heart rate in the 70s to 80s. Hemoglobin this morning 9.8, 11.2 on admission, sodium 136, potassium 4.1, BUN 28, creatinine 1.1. Troponins negative 3. According to the patient, she denied having any chest discomfort prior to her fall, she does state that when she stands up too fast she gets very dizzy, and she standing for a while or walking the symptoms seemed to subside. Past Medical History Past Medical History: Diabetes Mellitus, Fibromyalgia, GERD/Reflux, Hyperlipidemia, Osteoarthritis (OA), Renal Disease, Thyroid Disorder Additional Past Medical History / Comment(s): uterine ca 50 years ago sx only.past falls, past c2 fx no sx but wore a brace , [place] eyes, uti's,. dizziness at times and occ when sitting will. blank out for few min-last time this happened was 4 months ago. stage 3 kidney failure History of Any Multi-Drug Resistant Organisms: None Reported Past Surgical History: Adenoidectomy, Back Surgery, Bariatric Surgery, Cholecystectomy, Hysterectomy, Tonsillectomy Additional Past Surgical History / Comment(s): loop monitor implanted 03-30-18 Past Anesthesia/Blood Transfusion Reactions: No Reported Reaction Smoking Status: Never smoker - Past Family History Mother Family Medical History: Dementia Father Family Medical History: Myocardial Infarction ([place]) Brother(s) Family Medical History: Cancer Additional Family Medical History / Comment(s): samll cell lung ca w/ mets to brain Medications and Allergies Home Medications Medication Instructions Recorded Confirmed Type Citalopram Hydrobromide [CeleXA] 40 mg PO DAILY 10/15/14 05/22/18 History LORazepam [Ativan] 0.5 mg PO TID PRN 10/15/14 05/22/18 History Naproxen 500 mg PO DAILY 10/15/14 05/22/18 History Potassium Chloride [Klor-Con 10] 10 meq PO MOWEFR 10/15/14 05/22/18 History Simvastatin [Zocor] 20 mg PO DAILY 10/15/14 05/22/18 History Meclizine [Antivert] 25 mg PO TID PRN 09/18/15 05/22/18 History Furosemide [Lasix] 40 mg PO MOWEFR 05/30/16 05/22/18 History Levothyroxine Sodium [Synthroid] 100 mcg PO DAILY 05/30/16 05/22/18 History Canagliflozin/Metformin HCl 1 each PO BID 03/26/18 05/22/18 History [Invokamet 150-1,000 mg Tablet] Acetaminophen [Tylenol] 500 mg PO Q4-6H PRN 05/22/18 05/22/18 History Empagliflozin/Metformin HCl 1 tab PO DAILY 05/22/18 05/22/18 History [Synjardy 12.5-500 mg Tablet] Magnesium 300 mg PO DAILY 05/22/18 05/22/18 History Metoclopramide [Reglan] 10 mg PO DAILY 05/22/18 05/22/18 History Omeprazole [PriLOSEC] 20 mg PO DAILY 05/22/18 05/22/18 History Timolol [Betimol 0.5% Ophth Soln] 1 drop BOTH EYES DAILY 05/22/18 05/22/18 History Vit C/E/Zn/Coppr/Lutein/Zeaxan 2 cap PO DAILY 05/22/18 05/22/18 History [Preservision Areds 2 Softgel] busPIRone HCL 30 mg PO HS 05/22/18 05/22/18 History traMADol HCL [Ultram] 50 mg PO HS PRN 05/22/18 05/22/18 History Allergies Allergy/AdvReac Type Severity Reaction Status Date / Time Penicillins Allergy ANNIE'S Verified 05/22/18 08:57 SYNDROME Physical Exam Vitals: Vital Signs Temp Pulse Pulse Pulse Pulse Pulse Pulse 05/23/18 08:00 92 96 74 05/23/18 04:00 97.7 F 68 05/23/18 00:00 98.5 F 76 05/22/18 21:32 80 86 77 05/22/18 20:00 98.4 F 74 05/22/18 17:40 100.9 F H 85 05/22/18 15:16 76 84 72 05/22/18 14:46 75 05/22/18 12:00 90 Resp BP BP BP BP BP Pulse Ox 05/23/18 08:00 16 135/73 129/68 105/58 100 05/23/18 04:00 17 124/77 100 05/23/18 00:00 16 126/65 99 05/22/18 21:32 121/58 115/56 97/57 05/22/18 20:00 17 99/59 96 05/22/18 17:40 20 137/94 98 05/22/18 15:16 18 121/71 127/67 116/70 97 05/22/18 14:46 17 132/63 98 05/22/18 12:00 17 120/58 98 Intake and Output 05/22/18 05/23/18 05/23/18 22:59 06:59 14:59 Intake Total 250 Balance 250 Intake: IV 250 Sodium Chloride 0.9% 1, 250 000 ml @ 100 mls/hr IV . Q10H ONE Rx#:[id number] Other: Voiding Method Toilet Toilet Toilet # Voids 1 1 1 Weight 52.9 kg 53.1 kg PHYSICAL EXAMINATION: GENERAL: 73-year-old female in no acute distress at the time of my examination HEENT: She does have ecchymosis noted to the left side of her face, and her neck and chest area . Pupils equal, round. Sclera anicteric. Conjunctiva are clear. Mucous membranes of the mouth are moist. Neck is supple. There is no elevated jugular venous pressure. No carotid bruit is heard. HEART EXAMINATION: Heart S1 and S2 systolic murmur is heard. CHEST EXAMINATION: Lungs are clear to auscultation and precussion. No chest wall tenderness is noted on palpation or with deep breathing. ABDOMEN: Soft, nontender. Bowel sounds are heard. No organomegaly noted. EXTREMITIES: 2+ peripheral pulses with no evidence of peripheral edema and no calf tenderness noted. NEUROLOGIC patient is awake, alert and oriented ?-3. . Results 05/23/18 05:49 05/23/18 05:49 Cardiac Enzymes 05/22/18 05/22/18 05/23/18 Range/Units 15:08 20:41 05:49 AST 19 (14-36) U/L CK-MB (CK-2) 2.5 H* 1.5 (0.0-2.4) ng/mL Troponin I <0.012 <0.012 (0.000-0.034) ng/mL Lipids 05/23/18 Range/Units 05:49 Triglycerides 135 (<150) mg/dL Cholesterol 136 (<200) mg/dL HDL Cholesterol 37 L (40-60) mg/dL CBC 05/23/18 Range/Units 05:49 WBC 5.8 (3.8-10.6) k/uL RBC 3.02 L (3.80-5.40) m/uL Hgb 9.8 L (11.4-16.0) gm/dL Hct 29.7 L (34.0-46.0) % Plt Count 228 (150-450) k/uL Comprehensive Metabolic Panel 05/23/18 Range/Units 05:49 Sodium 136 L (137-145) mmol/L Potassium 4.1 (3.5-5.1) mmol/L Chloride 102 (98-107) mmol/L Carbon Dioxide 28 (22-30) mmol/L BUN 28 H (7-17) mg/dL Creatinine 1.10 H (0.52-1.04) mg/dL Glucose 84 (74-99) mg/dL Calcium 9.1 (8.4-10.2) mg/dL AST 19 (14-36) U/L ALT 23 (9-52) U/L Alkaline Phosphatase 49 (38-126) U/L Total Protein 6.2 L (6.3-8.2) g/dL Albumin 3.7 (3.5-5.0) g/dL Current Medications Generic Name Dose Route Start Last Admin Trade Name Freq PRN Reason Stop Dose Admin Acetaminophen 650 mg 05/22/18 13:51 05/23/18 01:13 Tylenol Tab PO 650 mg Q6HR PRN Administration Mild Pain or Fever > 100.5 Atorvastatin Calcium 10 mg 05/23/18 09:00 05/23/18 09:49 Lipitor PO 10 mg DAILY ALBERTO Administration Buspirone HCl 30 mg 05/22/18 21:00 05/22/18 20:39 Buspar PO 30 mg HS ALBERTO Administration Citalopram Hydrobromide 40 mg 05/23/18 09:00 05/23/18 09:49 Celexa PO 40 mg DAILY ALBERTO Administration Furosemide 40 mg 05/22/18 14:30 05/22/18 15:45 Lasix PO Not Given MOWEFR ALBERTO Levothyroxine Sodium 100 mcg 05/23/18 06:30 05/23/18 06:46 Synthroid PO 100 mcg DAILY@0630 ALBERTO Administration Lorazepam 0.5 mg 05/22/18 13:55 Ativan PO TID PRN Anxiety Meclizine HCl 25 mg 05/22/18 13:55 Antivert PO TID PRN Vertigo Metoclopramide HCl 10 mg 05/23/18 09:00 05/23/18 09:49 Reglan PO 10 mg DAILY ALBERTO Administration Miscellaneous Information 1 each 05/22/18 08:58 05/22/18 10:46 Rx Info: Iv Contrast Was Given MISCELLANE 05/24/18 08:58 1 each DAILY PRN Administration Per Protocol Naloxone HCl 0.2 mg 05/22/18 13:51 Narcan IV Q2M PRN Opioid Reversal Naproxen 500 mg 05/23/18 09:00 05/23/18 09:48 Naprosyn PO 500 mg DAILY ALBERTO Administration Canagliflozin/ 1 each 05/22/18 21:00 05/23/18 09:49 Metformin Hcl [ PO Not Given Invokamet 150-1,000 BID ALBERTO Mg Tablet] Ondansetron HCl 4 mg 05/22/18 13:51 Zofran IVP Q8HR PRN Nausea And Vomiting Pantoprazole Sodium 40 mg 05/23/18 07:30 05/23/18 06:46 Protonix PO 40 mg AC-BRKFST ALBERTO Administration Potassium Chloride 10 meq 05/22/18 14:30 05/22/18 15:45 K-Dur 10 PO Not Given MOWEFR ALBERTO Timolol Maleate 1 drops 05/23/18 09:00 Timoptic BOTH EYES DAILY ALBERTO Tramadol HCl 50 mg 05/22/18 13:55 05/22/18 20:42 Ultram PO 50 mg HS PRN Administration MODERATE Pain Intake and Output 05/22/18 05/23/18 05/23/18 22:59 06:59 14:59 Intake Total 250 Balance 250 Intake: IV 250 Sodium Chloride 0.9% 1, 250 000 ml @ 100 mls/hr IV . Q10H ONE Rx#:[id number] Other: Voiding Method Toilet Toilet Toilet # Voids 1 1 1 Weight 52.9 kg 53.1 kg 05/23/18 05:49 05/23/18 05:49 EKG Interpretations (text) EKG shows normal sinus rhythm with nonspecific ST-T wave changes Assessment and Plan Plan: Assessment and plan #1 fall, possible syncope, likely secondary to orthostatic hypotension. Patient does have a loop recorder in place, we will interrogate this. #2 diabetes #3 hyperlipidemia #4 hypothyroidism #5 chronic kidney disease Plan We'll continue to check orthostatic blood pressure and heart rate every shift. We will also interrogate the loop recorder. Obtain echocardiogram with Doppler study. Start the patient on small dose of SILVIA inhibitor being that she is a diabetic. Increase Lipitor to 40 mg daily. DNP note has been reviewed, I agree with a documented findings and plan of care. Patient was seen and examined.
--- NOTE | 2018-05-23 12:43 | P.PN ---
Subjective Progress Note Date: 05/23/18 This is a 73-year-old pleasant lady patient of Dr. Bhupinder Swenson. Underlying history of diabetes mellitus type 2, fibromyalgia, CK D, uterine cancer, dysthymia admitted to the hospital secondary to fall at home. Apparently patient was sleeping in her chair, and when she woke up she got up and took a few steps, lost her balance, was lightheaded and fell on the left side. This occurred 2 hours prior to admission. Patient has pain in the left shoulder, left upper chest, and left cheek patient denies any nausea vomiting or diarrhea, no headache, no neck pain. No shortness of breath and no visible changes. No medication changes from her PCP. patient has an loop recorder placed 2 mos ago. no nuerology. intermittently has spells while sitting down and just taking to people. In the emergency room, she was seen, EKG CAT scan of the brain and CT of the chest failed to reveal any fractures, there is no bleed, CAT scan of the chest only shows some small sliding type hiatal hernia, linear atelectasis left lung, no mass no pleural effusion no pneumothorax CT of the brain shows small valve disease with atrophy, no bleed, cervical spine CT shows chronic anterolisthesis C3-C4, C4-C5 with spondylosis no fractures or subluxation CT of the face shows chronic appearing blowout fracture floor of the left orbit at muscular entrapment labs shows double basic count 7.6 hemoglobin 11.2, creatinine of 1.2 , glucose of 122, troponin 0.012, CK 47, urinalysis is negative except for glucose, and hyaline cast 05/23. Patient examined bedside. Denies any dizziness. Patient does document gait instability and feeling that she will fall on standing. Loop recorder interrogated with no abnormality. Patient denies any chest pain, palpitation or shortness of breath, no events were reported overnight. PT recommendations are pending. Orthostatics negative this morning. Will be repeated. Patient was made to stand on her feet and was unable to feel the ground Objective - Vital Signs Vital signs: Vital Signs Temp 97.7 F 05/23/18 04:00 Pulse 80 05/23/18 11:00 Resp 16 05/23/18 11:00 BP 130/60 05/23/18 11:00 Pulse Ox 98 05/23/18 11:00 Intake & Output 05/22/18 05/23/18 05/23/18 18:59 06:59 18:59 Intake Total 250 Balance 250 Weight 52.9 kg 53.1 kg Intake: IV 250 Sodium Chloride 0.9% 1, 250 000 ml @ 100 mls/hr IV . Q10H ONE Rx#:[id number] Other: Voiding Method Toilet Toilet # Voids 1 1 - Exam - Constitutional General appearance: cooperative, no acute distress - EENT Eyes: anicteric sclerae, EOMI, PERRLA, dentition normal, normal appearance ENT: NA/AT, normal oropharynx - Neck Neck: normal ROM - Respiratory Respiratory: bilateral: CTA, negative: diminished, dullness, rales, rhonchi, wheezing - Cardiovascular Rhythm: regular Heart sounds: normal: S1, S2 Abnormal Heart Sounds: no systolic murmur, no diastolic murmur, no rub, no S3 Gallop, no S4 Gallop, no click, no other - Gastrointestinal General gastrointestinal: normal bowel sounds, soft - Integumentary lleft neck bruise abrasion chin left Integumentary: decreased turgor, normal - Neurologic Neurologic: CNII-XII intact difficulty putting weight on lower legs with numbness of the sole - Musculoskeletal Musculoskeletal: gait instability, strength equal bilaterally - Psychiatric Psychiatric: A&O x's 3, appropriate affect, intact judgment & insight - Labs CBC & Chem 7: 05/23/18 05:49 05/23/18 05:49 Labs: Abnormal Lab Results - Last 24 Hours (Table) 05/22/18 05/22/18 05/23/18 Range/Units 15:08 20:47 05:49 RBC 3.02 L (3.80-5.40) m/uL Hgb 9.8 L (11.4-16.0) gm/dL Hct 29.7 L (34.0-46.0) % Sodium (137-145) mmol/L BUN (7-17) mg/dL Creatinine (0.52-1.04) mg/dL POC Glucose (mg/dL) 113 H (75-99) mg/dL CK-MB (CK-2) 2.5 H* (0.0-2.4) ng/mL Total Protein (6.3-8.2) g/dL HDL Cholesterol (40-60) mg/dL 05/23/18 05/23/18 Range/Units 05:49 11:46 RBC (3.80-5.40) m/uL Hgb (11.4-16.0) gm/dL Hct (34.0-46.0) % Sodium 136 L (137-145) mmol/L BUN 28 H (7-17) mg/dL Creatinine 1.10 H (0.52-1.04) mg/dL POC Glucose (mg/dL) 118 H (75-99) mg/dL CK-MB (CK-2) (0.0-2.4) ng/mL Total Protein 6.2 L (6.3-8.2) g/dL HDL Cholesterol 37 L (40-60) mg/dL Assessment and Plan Plan: 1. Near syncope, fall at home, evaluated by cardiology for arrhythmias none reported. Orthostatics negative will be repeated again. Likely secondary to orthostatic hypotension from diabetes with possible peripheral neuropathy echocardiogram to be done, serial troponins patient will be observed EEG of the brain was requested, as well as carotid Dopplers patient observed in telemetry unit. Neurology seen the patient does not think it was seizure. loop recorder event evaluated and was negative 2. presence of loop recorder palced 2 mos ago, with misplacement of device now sitting below left breast 3. Diabetes mellitus type 2, Accu-Cheks to be done Synjardy and invokamet from home patient can bring supplies her creatinine was still allowed his medication GFR of 45 continue to monitor 4. CK D stage 3 GFR of 45 with hyaline cast no proteinuria, patient will be hydrated, orthostatics to be done, as the patient came in with new syncope 4. Fibromyalgia, on tramadol 5. Dysthymia on Celexa BuSpar 6. Hyperlipidemia on Zocor 20 7. Hypothyroidism on levothyroxine 100 g daily 8. Hypertension, on Lasix 40 mg Friday, this can be resumed as long as parameters for blood pressure and orthostasis would allow it 9. Prior history of blowout fracture left orbit in the past, 10. Chronic pain, with CK D stage III, naproxen has to be discontinued GERD on maintenance Prilosec 20
[2018-05-23] MEDS: LISINOPRIL 5 MG TAB PO SCH (13:31)
[2018-05-23 17:00] LABS: Glucose,Whole Blood 109 mg/dL (75-99)
--- NOTE | 2018-05-23 17:44 | P.CN ---
Psychiatric Consult - . Consult date: 05/23/18 Consult:: 05/23/18 17:40 Identifying Information 73 year old woman admitted to medicine secondary to fall. She lives with her friend in an apartment. Her friend was present at the time of interview. She is currently being monitored on 1:1 observation/ sitter due to self report of suicidal thoughts. She reports good relationship with her friend. Reason for consult: Psychiatry was consulted to evaluate the patient for suicidal ideations. History of presenting illness Patient claims to have been volunteering since 2003. She stated she likes children and working with them. She reports to have felt unwanted and rejected when she was told by the staff at [facility] that she is not the appropriate person to volunteer due to her physical limitations such as not being able to climb the stairs with her walker. Patient also claims she has financial problems. She however states she is trying to work it out and is hopeful. She reports spending most of her time watching TV and coloring at home. She states she enjoys coloring . She reports good concentration. She reports good appetite. She reports sleeping only for four to five hours at night. She stated it was an impulsive thought when she had told the staff at the hospital about overdosing on her diabetic medications. She currently states she does not want to hurt herself, for she does not want her friend to go through the pain or loss. She adamantly states it was only a thought that occurred to her momentarily and has no plans or intentions of acting on those thoughts. She feels safe to go back to live with her friend. She claims her friend is very supportive of her and has been living with her for the past five years. She denies history of auditory or visual hallucinations. She denies history of paranoia and states she is the opposite of paranoia and trusts every one. She denies symptoms of caleb. She denies homicidal ideations. She reports being complaint with her medications celexa and buspar prescribed to her through her family doctor for depression. She states celexa helps her with depression and does not feel tearful or sad with it. Past psychiatric history Reports being started on psychiatric medications for depression during her 50s due to feeling suicidal and depressed following the of her both with in a weeks duration. She denies psychiatric hospitalizations. She denies suicidal attempts. Substance use history Denies Family psychiatric treatment history Denies Medical history Diabetes Mellitus, Fibromyalgia, GERD/Reflux, Hyperlipidemia, Osteoarthritis (OA ), Renal Disease, Thyroid Disorder, uterine ca 50 years ago. Adenoidectomy, Back Surgery, Bariatric Surgery, Cholecystectomy, Hysterectomy, Tonsillectomy Allergies Pencillin, develops rashes with it LMP Menopausal Mental status exam 73 year old woman. She was in the bed lying, dressed in hospital gown. She has echymosis on her neck. She appeared in fair grooming and hygiene. She maintains good eye contact. No abnormal movements noted. Her mood is reported as good and affect appropriate. She denies current auditory or visual hallucinations. She denies paranoia. She is alert and oriented x 4. Has fair insight and judgment. Denies current suicidal or homicidal ideations. Diagnosis Major depression, mild. Plan 73-year-old male admitted to medicine secondary to fall. Patient to continue her current out patient medications celexa and buspar for depression. She has good response with those medications and tolerates them well with out any side effects. Will recommend out patient psychiatry follow up for medication management and psychotherapy. Will recommend social work consult to assist patient with her transportation to her [facility] appointments Patient does not need 1:1 sitter as she is not actively suicidal. She denies current suicidal ideations. Patient to avoid seeking volunteer work until she is physically/ medically more stable. Patient feels safe to return back home to her friend, who was also present during the interview. Patient is stable on her medications celexa and buspar For any questions consult psychiatry and thank you for letting us participate in your patients care.
[2018-05-23] MEDS: busPIRone HCl 10 MG TAB PO SCH (20:04)
[2018-05-23] MEDS: traMADol 50 MG TAB PO PRN (20:04)
[2018-05-23 20:29] LABS: Glucose,Whole Blood 109 mg/dL (75-99)
[2018-05-24] MEDS: LEVOTHYROXINE 100 MCG TAB PO SCH (06:13)
[2018-05-24 07:31] LABS: Basophils % (A) 1 %; Eosinophils # (A) 0.2 k/uL (0-0.7); Eosinophils % (A) 4 %; HCT 29.1 % (34.0-46.0); HGB 9.7 gm/dL (11.4-16.0); Lymphocytes # (A) 1.8 k/uL (1.0-4.8); Lymphocytes % (A) 30 %; MCH 32.7 pg (25.0-35.0); MCHC 33.2 g/dL (31.0-37.0); MCV 98.3 fL (80.0-100.0); Mean Platelet Volume 6.3; Monocytes # (A) 0.5 k/uL (0-1.0); Monocytes % (A) 9 %; Neutrophils # (A) 3.1 k/uL (1.3-7.7); Neutrophils % (A) 54 %; Platelet Count 234 k/uL (150-450); RBC 2.96 m/uL (3.80-5.40); RDW 12.3 % (11.5-15.5); WBC 5.8 k/uL (3.8-10.6)
[2018-05-24 07:46] LABS: Glucose,Whole Blood 273 mg/dL (75-99)
[2018-05-24 07:50] LABS: Albumin 3.5 g/dL (3.5-5.0); Calcium 9.6 mg/dL (8.4-10.2); Potassium 4.4 mmol/L (3.5-5.1); Total Bilirubin 0.4 mg/dL (0.2-1.3)
[2018-05-24] MEDS: NAPROXEN 250 MG TAB PO SCH (08:04)
[2018-05-24] MEDS: METOCLOPRAMIDE 10 MG TAB PO SCH (08:09)
[2018-05-24] MEDS: LISINOPRIL 5 MG TAB PO SCH (08:09)
[2018-05-24] MEDS: PANTOPRAZOLE 40 MG TABLET PO SCH (08:09)
[2018-05-24] MEDS: ATORVASTATIN 10 MG TAB PO SCH (08:09)
[2018-05-24] MEDS: CITALOPRAM HYDROBROMIDE 20 MG TAB PO SCH (08:09)
[2018-05-24] MEDS: INSULIN ASPART 100 UNIT/ML 1 ML 10 ML VIAL SQ SCH ×4 (08:14→22:07)
[2018-05-24] MEDS: METFORMIN HCL PO SCH ×2 (08:14→22:07)
[2018-05-24] MEDS: CANAGLIFLOZIN PO SCH ×2 (08:14→22:07)
--- NOTE | 2018-05-24 09:43 | P.PN ---
Subjective Progress Note Date: 05/24/18 This is a 73-year-old pleasant lady patient of Dr. Bhupinder Swenson. Underlying history of diabetes mellitus type 2, fibromyalgia, CK D, uterine cancer, dysthymia admitted to the hospital secondary to fall at home. Apparently patient was sleeping in her chair, and when she woke up she got up and took a few steps, lost her balance, was lightheaded and fell on the left side. This occurred 2 hours prior to admission. Patient has pain in the left shoulder, left upper chest, and left cheek patient denies any nausea vomiting or diarrhea, no headache, no neck pain. No shortness of breath and no visible changes. No medication changes from her PCP. patient has an loop recorder placed 2 mos ago. no nuerology. intermittently has spells while sitting down and just taking to people. In the emergency room, she was seen, EKG CAT scan of the brain and CT of the chest failed to reveal any fractures, there is no bleed, CAT scan of the chest only shows some small sliding type hiatal hernia, linear atelectasis left lung, no mass no pleural effusion no pneumothorax CT of the brain shows small valve disease with atrophy, no bleed, cervical spine CT shows chronic anterolisthesis C3-C4, C4-C5 with spondylosis no fractures or subluxation CT of the face shows chronic appearing blowout fracture floor of the left orbit at muscular entrapment labs shows double basic count 7.6 hemoglobin 11.2, creatinine of 1.2 , glucose of 122, troponin 0.012, CK 47, urinalysis is negative except for glucose, and hyaline cast 05/23. Patient examined bedside. Denies any dizziness. Patient does document gait instability and feeling that she will fall on standing. Loop recorder interrogated with no abnormality. Patient denies any chest pain, palpitation or shortness of breath, no events were reported overnight. PT recommendations are pending. Orthostatics negative this morning. Will be repeated. Patient was made to stand on her feet and was unable to feel the ground 05/24 patient examined bedside. Denies any shortness of breath, chest pain or breathing difficulty. Orthostatics are negative. Patient does complain of jumping of the legs in the nighttime and is very sensitive to touch has never been diagnosed with peripheral neuropathy wouldn't initiate the patient on gabapentin 100 mg by mouth at bedtime as blood pressures of the lower side. phlebotomy manager consult placed to help with disposition patient would benefit from a detention facility Objective - Vital Signs Vital signs: Vital Signs Temp 97.8 F 05/24/18 05:45 Pulse 63 05/24/18 05:45 Resp 18 05/24/18 05:45 BP 118/56 05/24/18 05:45 Pulse Ox 98 05/24/18 07:51 Intake & Output 05/23/18 05/24/18 05/24/18 18:59 06:59 18:59 Intake Total 118 Output Total 150 Balance 118 -150 Weight 53.1 kg Intake: Oral 118 Output: Urine 150 Other: Voiding Method Toilet Toilet # Voids 1 1 - Exam - Constitutional General appearance: cooperative, no acute distress - EENT Eyes: anicteric sclerae, EOMI, PERRLA, dentition normal, normal appearance ENT: NA/AT, normal oropharynx - Neck Neck: normal ROM - Respiratory Respiratory: bilateral: CTA, negative: diminished, dullness, rales, rhonchi, wheezing - Cardiovascular Rhythm: regular Heart sounds: normal: S1, S2 Abnormal Heart Sounds: no systolic murmur, no diastolic murmur, no rub, no S3 Gallop, no S4 Gallop, no click, no other - Gastrointestinal General gastrointestinal: normal bowel sounds, soft - Integumentary lleft neck bruise abrasion chin left Integumentary: decreased turgor, normal - Neurologic Neurologic: CNII-XII intact difficulty putting weight on lower legs with numbness of the sole - Musculoskeletal Musculoskeletal: gait instability, strength equal bilaterally - Psychiatric Psychiatric: A&O x's 3, appropriate affect, intact judgment & insight - Labs CBC & Chem 7: 05/24/18 06:38 05/24/18 06:38 Labs: Abnormal Lab Results - Last 24 Hours (Table) 05/23/18 05/23/18 05/23/18 Range/Units 11:46 16:49 20:27 RBC (3.80-5.40) m/uL Hgb (11.4-16.0) gm/dL Hct (34.0-46.0) % BUN (7-17) mg/dL Creatinine (0.52-1.04) mg/dL POC Glucose (mg/dL) 118 H 109 H 109 H (75-99) mg/dL Total Protein (6.3-8.2) g/dL 05/24/18 05/24/18 05/24/18 Range/Units 06:38 06:38 07:45 RBC 2.96 L (3.80-5.40) m/uL Hgb 9.7 L (11.4-16.0) gm/dL Hct 29.1 L (34.0-46.0) % BUN 24 H (7-17) mg/dL Creatinine 1.13 H (0.52-1.04) mg/dL POC Glucose (mg/dL) 273 H (75-99) mg/dL Total Protein 6.0 L (6.3-8.2) g/dL Assessment and Plan Plan: 1. Near syncope, fall at home, evaluated by cardiology for arrhythmias none reported. Orthostatics negative will be repeated again. Likely secondary to orthostatic hypotension from diabetes with possible peripheral neuropathy echocardiogram to be done, serial troponins patient will be observed EEG of the brain was requested, as well as carotid Dopplers patient observed in telemetry unit. Neurology seen the patient does not think it was seizure. loop recorder event evaluated and was negative 2. presence of loop recorder palced 2 mos ago, with misplacement of device now sitting below left breast elevated and looks good 3. Diabetes mellitus type 2, Accu-Cheks to be done Synjardy and invokamet from home patient can bring supplies her creatinine was still allowed his medication GFR of 45 continue to monitor stop HbA1c pending 4. CK D stage 3 GFR of 45 with hyaline cast no proteinuria, patient will be hydrated 4. Fibromyalgia, on tramadol 5. Dysthymia on Celexa BuSpar 6. Hyperlipidemia on Zocor 20 7. Hypothyroidism on levothyroxine 100 g daily 8. Hypertension, on Lasix 40 mg Friday, this can be resumed as long as parameters for blood pressure and orthostasis would allow it 9. Prior history of blowout fracture left orbit in the past, 10. Chronic pain, with CK D stage III, naproxen has to be discontinued 11 Diagnosis of restless leg syndrome secondary to diabetic neuropathy. Gabapentin initiated on 100 mg by mouth daily GERD on maintenance Prilosec 20
[2018-05-24 11:28] LABS: Glucose,Whole Blood 95 mg/dL (75-99)
[2018-05-24] MEDS: ACETAMINOPHEN TAB 325 MG TAB PO PRN (12:54)
[2018-05-24 17:02] LABS: Glucose,Whole Blood 92 mg/dL (75-99)
[2018-05-24] MEDS: TIMOLOL 0.5% OPHTH DROPS 5 ML BTL BOTH EYES SCH (17:55)
[2018-05-24] MEDS ORDERED: GABAPENTIN 100 MG CAP PO SCH (21:00)
[2018-05-24 21:57] LABS: Glucose,Whole Blood 109 mg/dL (75-99)
[2018-05-24] MEDS: busPIRone HCl 10 MG TAB PO SCH (22:07)
[2018-05-24] MEDS: traMADol 50 MG TAB PO PRN (22:14)
[2018-05-25] MEDS: LEVOTHYROXINE 100 MCG TAB PO SCH (06:22)
[2018-05-25 07:13] LABS: Basophils % (A) 1 %; Eosinophils # (A) 0.2 k/uL (0-0.7); Eosinophils % (A) 3 %; HCT 29.8 % (34.0-46.0); Lymphocytes # (A) 2.1 k/uL (1.0-4.8); Lymphocytes % (A) 32 %; MCH 32.7 pg (25.0-35.0); MCHC 33.5 g/dL (31.0-37.0); MCV 97.6 fL (80.0-100.0); Mean Platelet Volume 6.6; Monocytes # (A) 0.4 k/uL (0-1.0); Monocytes % (A) 6 %; Neutrophils # (A) 3.7 k/uL (1.3-7.7); Neutrophils % (A) 55 %; Platelet Count 265 k/uL (150-450); RBC 3.06 m/uL (3.80-5.40); RDW 12.3 % (11.5-15.5); WBC 6.6 k/uL (3.8-10.6)
[2018-05-25 07:18] LABS: Glucose,Whole Blood 89 mg/dL (75-99)
[2018-05-25 07:29] LABS: Albumin 3.5 g/dL (3.5-5.0); Calcium 9.7 mg/dL (8.4-10.2); Potassium 4.7 mmol/L (3.5-5.1); Total Bilirubin 0.4 mg/dL (0.2-1.3); Total Protein 6.1 g/dL (6.3-8.2)
[2018-05-25 08:13] VITALS: BP 123/61; PULSE 66; RESP 16; TEMP 97.8
[2018-05-25] MEDS: INSULIN ASPART 100 UNIT/ML 1 ML 10 ML VIAL SQ SCH (08:44)
[2018-05-25] MEDS: NAPROXEN 250 MG TAB PO SCH (08:45)
[2018-05-25] MEDS: CITALOPRAM HYDROBROMIDE 20 MG TAB PO SCH (08:46)
[2018-05-25] MEDS: LISINOPRIL 5 MG TAB PO SCH (08:46)
[2018-05-25] MEDS: ATORVASTATIN 10 MG TAB PO SCH (08:46)
[2018-05-25] MEDS: PANTOPRAZOLE 40 MG TABLET PO SCH (08:46)
[2018-05-25] MEDS: METOCLOPRAMIDE 10 MG TAB PO SCH (08:47)
[2018-05-25] MEDS: TIMOLOL 0.5% OPHTH DROPS 5 ML BTL BOTH EYES SCH (08:47)
[2018-05-25] MEDS: CANAGLIFLOZIN PO SCH (08:48)
[2018-05-25] MEDS: METFORMIN HCL PO SCH (08:48)
--- NOTE | 2018-05-26 13:24 | EEG ---
ELECTROENCEPHALOGRAM REPORT DATE OF SERVICE: 05/23/2018. REASON FOR TESTING: Dizziness. DESCRIPTION OF THE PROCEDURE: This EEG was performed using a 21 channel digital electroencephalograph, following international 10-20 system. DESCRIPTION OF THE RECORDING: From the beginning of the tracing, and with patient's eyes closed, the background rhythm was mostly consisting of 11 Hz alpha frequency in the posterior occipital leads. No obvious asymmetry is seen. Occasional movement and muscle artifacts are seen. Photic stimulation was performed with a minimal driving response seen. No pathological waves were elicited. Hyperventilation was not performed. The patient remains awake throughout the tracing. No epileptiform discharges were seen. Her EKG lead showed a regular rate and rhythm. INTERPRETATION: This awake EEG can be considered within normal limits. There was no asymmetry seen. No epileptiform discharges were noticed. The absence of epileptiform discharges does not rule out the diagnosis of epilepsy; therefore clinical correlation is recommended. GILBERTO / DANITZA: [id number] /
== END 2018-05-25 11:15 | disposition home health service (06) ==
LOC: EC 08:27 → 3OBS 13:46 → EC 14:20 → 6SEL 17:30 → 5MS5E 05-23 22:26
PROVIDERS: ADMIT Family Medicine; ATTEND Family Medicine
DX: R55 Syncope and collapse (principal); M25.512 Pain in left shoulder; S20.219A Contusion of unspecified front wall of thorax, initial encounter; S00.83XA Contusion of other part of head, initial encounter; F32.9 Major depressive disorder, single episode, unspecified; F41.9 Anxiety disorder, unspecified; F34.1 Dysthymic disorder; M79.7 Fibromyalgia; K21.9 Gastro-esophageal reflux disease without esophagitis; G25.0 Essential tremor; I49.9 Cardiac arrhythmia, unspecified; E78.5 Hyperlipidemia, unspecified; M19.90 Unspecified osteoarthritis, unspecified site; I12.9 Hypertensive chronic kidney disease with stage 1 through stage 4 chronic kidney disease, or unspecified chronic kidney disease; N18.3 Chronic kidney disease, stage 3 (moderate); E03.9 Hypothyroidism, unspecified; E11.22 Type 2 diabetes mellitus with diabetic chronic kidney disease; G89.29 Other chronic pain; Z90.49 Acquired absence of other specified parts of digestive tract; Z98.84 Bariatric surgery status; Z85.42 Personal history of malignant neoplasm of other parts of uterus; Z79.899 Other long term (current) drug therapy; Z88.0 Allergy status to penicillin; Z79.84 Long term (current) use of oral hypoglycemic drugs; Z79.890 Hormone replacement therapy; Z79.1 Long term (current) use of non-steroidal anti-inflammatories (NSAID); Y92.009 Unspecified place in unspecified non-institutional (private) residence as the place of occurrence of the external cause; Z95.818 Presence of other cardiac implants and grafts; Z82.49 Family history of ischemic heart disease and other diseases of the circulatory system; Z80.1 Family history of malignant neoplasm of trachea, bronchus and lung; Z80.8 Family history of malignant neoplasm of other organs or systems; W01.0XXA Fall on same level from slipping, tripping and stumbling without subsequent striking against object, initial encounter; Z87.81 Personal history of (healed) traumatic fracture; H40.9 Unspecified glaucoma
CPT/HCPCS: 99285; 96360 ×2; 96361 ×7; 36415; 94760; 95816; 93005; 93306; 97116; 97163; 80061; 80053 ×4; 82550; 82553; 84484; 85025 ×4; 85610; 85730; 81001; 93880; 72125; 70486; 70450; 71260; G0378 ×5; Q9967; 96365; 96366; 96367; 96375; 96376; 99291

== ENCOUNTER 2018-05-29 19:06 | Emergency (ER) | payer MEDICARE ==
[2018-05-29 19:21] VITALS: BP 130/55; PULSE 77; RESP 16; TEMP 98.4
--- NOTE | 2018-05-29 19:42 | ED ---
ENT HPI - General Chief complaint: ENT Stated complaint: Jaw pain Time Seen by Provider: 05/29/18 19:28 Source: patient Limitations: physical limitation - History of Present Illness Initial comments: 73-year-old female with history of diabetes and renal disease who presents today for chief complaint of left-sided lower jaw pain. Pt states that she was eating a piece of candy on the left side of her cheek when she heard a crack and noted pain in the left jaw. SHe states that it increases with chewing. Pt is able to open and close jaw. Patient states that she was recently discharged this past Friday for fall on left side of body and face where CT of the facial bones were obtained revealing no acute mandibular fracture/factures. Pt denies dizziness, chest pain, headache, visual changes, shortness of breath, ear pain, dental pain, pain of the forehead, swelling below the mandible, increasing facial swelling. Pt does admit to pain with opening her mouth however this has been consistent since the d/c on Friday, however she was not having this much pain chewing like she is after eating the candy. Pt states multiple times that this is not dental pain. Remainder ROS (-). - Related Data Home Medications Medication Instructions Recorded Confirmed Citalopram Hydrobromide [CeleXA] 40 mg PO DAILY 10/15/14 05/29/18 LORazepam [Ativan] 0.5 mg PO TID PRN 10/15/14 05/29/18 Naproxen 500 mg PO DAILY 10/15/14 05/29/18 Simvastatin [Zocor] 20 mg PO DAILY 10/15/14 05/29/18 Meclizine [Antivert] 25 mg PO TID PRN 09/18/15 05/29/18 Furosemide [Lasix] 40 mg PO MOWEFR 05/30/16 05/29/18 Levothyroxine Sodium [Synthroid] 100 mcg PO DAILY 05/30/16 05/29/18 Canagliflozin/Metformin HCl 1 each PO BID 03/26/18 05/29/18 [Invokamet 150-1,000 mg Tablet] Acetaminophen [Tylenol] 500 mg PO Q4-6H PRN 05/22/18 05/29/18 Empagliflozin/Metformin HCl 1 tab PO DAILY 05/22/18 05/29/18 [Synjardy 12.5-500 mg Tablet] Magnesium 300 mg PO DAILY 05/22/18 05/29/18 Metoclopramide [Reglan] 10 mg PO DAILY 05/22/18 05/29/18 Omeprazole [PriLOSEC] 20 mg PO DAILY 05/22/18 05/29/18 Timolol [Betimol 0.5% Ophth Soln] 1 drop BOTH EYES DAILY 05/22/18 05/29/18 Vit C/E/Zn/Coppr/Lutein/Zeaxan 2 cap PO DAILY 05/22/18 05/29/18 [Preservision Areds 2 Softgel] busPIRone HCL 30 mg PO HS 05/22/18 05/29/18 traMADol HCL [Ultram] 50 mg PO HS PRN 05/22/18 05/29/18 Previous Rx's Medication Instructions Recorded Gabapentin [Neurontin] 100 mg PO HS #30 cap 05/25/18 Lisinopril [Zestril] 5 mg PO DAILY #30 tab 05/25/18 Allergies Allergy/AdvReac Type Severity Reaction Status Date / Time Penicillins Allergy ANNIE'S Verified 05/29/18 19:21 SYNDROME Review of Systems ROS Statement: Those systems with pertinent positive or pertinent negative responses have been documented in the HPI. ROS Other: All systems not noted in ROS Statement are negative. Past Medical History Past Medical History: Diabetes Mellitus, Fibromyalgia, GERD/Reflux, Hyperlipidemia, Osteoarthritis (OA), Renal Disease, Thyroid Disorder Additional Past Medical History / Comment(s): uterine ca 50 years ago sx only.past falls, past c2 fx no sx but wore a brace , [place] eyes, uti's,. dizziness at times and occ when sitting will. blank out for few min-last time this happened was 4 months ago. stage 3 kidney failure History of Any Multi-Drug Resistant Organisms: None Reported Past Surgical History: Adenoidectomy, Back Surgery, Bariatric Surgery, Cholecystectomy, Hysterectomy, Tonsillectomy Additional Past Surgical History / Comment(s): loop monitor implanted 03-30-18 Past Anesthesia/Blood Transfusion Reactions: No Reported Reaction Past Psychological History: Anxiety, Depression Smoking Status: Never smoker Past Alcohol Use History: None Reported Past Drug Use History: None Reported - Past Family History Brother(s) Family Medical History: Cancer Mother Family Medical History: Dementia Father Family Medical History: Myocardial Infarction (DE) General Exam - General Exam Comments Initial Comments: General: The patient is awake and alert, in no distress, and does not appear acutely ill. Eye: Pupils are equal, round and reactive to light, extra-ocular movements are intact. No nystagmus. There is normal conjunctiva bilaterally. No signs of icterus. Ears, nose, mouth and throat: There are moist mucous membranes and no oral lesions. Patient is able to open jaw, close there is no evidence of clicking or malalignment. Patient can bite down with significant force on tongue depressor. There is no palpable dental abscess. Patient has only four teeth with poor dentition, however no pain to percussion of teeth. There is ecchymosis on left aspect of cheek with mild swelling that appears to be resolving. No tenderness over temples b/l. Neck: The neck is supple, there is no tenderness or JVD. No carotid artery bruits. Cardiovascular: There is a regular rate and rhythm. No murmur, rub or gallop is appreciated. Respiratory: Lungs are clear to auscultation, respirations are non-labored, breath sounds are equal. No wheezes, stridor, rales, or rhonchi. Musculoskeletal: Normal ROM, no tenderness. Strength 5/5. Sensation intact. Pulses equal bilaterally 2+. Neurological: A&O x 3. CN II-XII intact, There are no obvious motor or sensory deficits. Coordination appears grossly intact. Speech is normal. Skin: Skin is warm and dry and no rashes or lesions are noted. Psychiatric: Cooperative, appropriate mood & affect, normal judgment. Limitations: physical limitation Course Vital Signs 05/29/18 19:16 Temperature 98.4 F Pulse Rate 77 Respiratory 16 Rate Blood Pressure 130/55 O2 Sat by Pulse 98 Oximetry Medical Decision Making - Medical Decision Making 73yo with recent left sided fall complaining of jaw pain after biting down on candy. Pt has only 4 teeth upon examination with only 1 on the left lower mandible. There are no signs of dental abscess. There is mild ecchymosis from fall on Friday. Pt denies additional falls, since d/c and states she has felt great denying any symptoms. She states her only symptoms were the jaw pain with chewing after eating that piece of candy earlier today. Pt is able to open jaw and bite down completely on tongue depressor however she complaing of left lower jaw pain with pressure. XR of the mandible obtained and CT results from Friday reviewed. No mandible fracture evident from either studies. Pt denies symptoms of [employer], ACS, dental abscess, carotid studies were performed friday revealing no aneurysm and there are no signs of carotid dissection pt appears very comfortable at this time i feel the left sided jaw pain is associated with fall from friday. Pt is to f/u with PCP in 1-2 days and return to the ER for any changes in symptoms. Pt agrees with plan, denying questions at this time. Pt d/c in stable condition with instruction to use tylenol for pain mgmt as needed. Case discussed with Dr. Guido who agrees with impression and plan. Disposition Clinical Impression: Pain in lower jaw Disposition: HOME SELF-CARE Condition: Good Instructions: Fall Prevention for Older Adults (ED) Additional Instructions: Please use home medications as discussed. Please follow-up with family doctor in the next 2 days of symptoms have not improved. Please return to emergency room if the symptoms increase or worsen or for any other concerns. Is patient prescribed a controlled substance at d/c from ED?: No Referrals: Herberth Roe DO [Primary Care Provider] - 1-2 days Time of Disposition: 20:33
--- NOTE | 2018-05-29 20:26 | XR ---
EXAMINATION TYPE: XR mandible complete DATE OF EXAM: 05/29/2018 COMPARISON: NONE HISTORY: Facial swelling TECHNIQUE: 5 views FINDINGS: The mandibular ring appears intact. I see no fracture. Temporomandibular joints appear inta ct. IMPRESSION: Negative mandible exam. No fracture.
== END 2018-05-29 20:55 | disposition home or self-care (01) ==
LOC: EC 19:06
DX: R68.84 Jaw pain (principal); S00.83XA Contusion of other part of head, initial encounter; K08.499 Partial loss of teeth due to other specified cause, unspecified class; E78.5 Hyperlipidemia, unspecified; E11.22 Type 2 diabetes mellitus with diabetic chronic kidney disease; N18.3 Chronic kidney disease, stage 3 (moderate); K21.9 Gastro-esophageal reflux disease without esophagitis; E07.9 Disorder of thyroid, unspecified; H40.9 Unspecified glaucoma; M19.90 Unspecified osteoarthritis, unspecified site; F32.9 Major depressive disorder, single episode, unspecified; F41.9 Anxiety disorder, unspecified; Z88.0 Allergy status to penicillin; Z79.1 Long term (current) use of non-steroidal anti-inflammatories (NSAID); Z79.84 Long term (current) use of oral hypoglycemic drugs; Z79.899 Other long term (current) drug therapy; Z85.42 Personal history of malignant neoplasm of other parts of uterus; Z90.710 Acquired absence of both cervix and uterus; W19.XXXA Unspecified fall, initial encounter
CPT/HCPCS: 70110; 99283

== ENCOUNTER → 2018-07-01 | Outpatient (CLI) | payer MEDICARE ==
--- NOTE | 2018-07-03 07:58 | MM ---
Reason for exam: screening (asymptomatic). Last mammogram was performed 1 year and 2 months ago. History: Patient is postmenopausal, has history of endometrial cancer at age 33, and is nulliparous. Family history of breast cancer in maternal aunt at age 55. Physical Findings: A clinical breast exam by your physician is recommended on an annual basis and results should be correlated with mammographic findings. MG 3D Screening Mammo W/Cad Bilateral CC and MLO view(s) were taken. XCCL view(s) were taken of the left breast. Prior study comparison: May 14, 2017, bilateral MG 3d screening mammo w/cad. February 02, 2016, bilateral MG 3d screening mammo w/cad. The breast tissue is heterogeneously dense. This may lower the sensitivity of mammography. There are benign appearing round dystrophic calcifications bilaterally. There is no discrete abnormality. New loop recorder posterior inferior medial left breast. ASSESSMENT: Benign, BI-RAD 2 RECOMMENDATION: Routine screening mammogram of both breasts in 1 year.
== END | disposition home or self-care (01) ==
LOC: RADMAMWWP 15:56
PROVIDERS: ATTEND Family Medicine
DX: Z12.31 Encounter for screening mammogram for malignant neoplasm of breast (principal)
CPT/HCPCS: 77063; 77067

== ENCOUNTER → 2019-04-14 | Outpatient (CLI) | payer MEDICARE ==
[2019-04-14 18:14] LABS: African American GFR (CKD) 47.1 (60.0-200.0); Anion Gap 11.5 mmol/L (4.00-12.00); BUN/Creat Ratio 33.08 Ratio (12.00-20.00); Calcium 10.3 mg/dL (8.7-10.3); Carbon Dioxide 28.5 mmol/L (21.6-31.8); Potassium 5.2 mmol/L (3.5-5.5)
== END | disposition home or self-care (01) ==
LOC: LABWHC1 12:43
DX: N18.3 Chronic kidney disease, stage 3 (moderate) (principal)
CPT/HCPCS: 36415; 80048

== ENCOUNTER → 2019-07-28 | Outpatient (CLI) | payer MEDICARE ==
--- NOTE | 2019-07-28 17:40 | XR ---
Lumbar spine HISTORY: Trauma one month prior, bilateral hip and low back pain 3 views of the lumbar spine correlated to prior exam 03/01/2013 At L2-3 there is been progression of loss of disc height, vacuum disc phenomenon, spondylosis, endpla te sclerosis. Patient shows postop changes status post lumbar fusion posteriorly at L4-5, there is as sociated laminectomy change. There is a dextroscoliosis centered at L3. Lumbar vertebral bodies show multilevel spondylosis, there is a stable anterolisthesis grade 1 L4-5. Loss of disc height again not ed at L3-4, L5-S1, L1-2 and T12-L1 and T11-12. Bone mineralization is reduced. Postop changes are not ed in the abdomen. IMPRESSION: No fracture or acute subluxation. Postop changes, osteopenia, progression of degenerative disc disease as described. Scoliosis.
--- NOTE | 2019-07-28 17:43 | XR ---
Bilateral hips HISTORY: Bilateral hip pain 2 views of each hip submitted on a total of 4 images and correlated to prior exam 05/30/2016 Bone mineralization, joint spaces and alignment are stable. There is no fracture or dislocation. Hype rtrophic acetabular changes are present bilaterally. Joint space loss is symmetric. Spurring of the g reater trochanters is again noted. IMPRESSION: Stable exam. Mild osteoarthritic changes. Correlate for possible femoral acetabular impin gement.
== END | disposition home or self-care (01) ==
LOC: RADXRMAIN 15:54
PROVIDERS: ATTEND Family Medicine
DX: M16.0 Bilateral primary osteoarthritis of hip (principal); M51.36 Other intervertebral disc degeneration, lumbar region; M41.86 Other forms of scoliosis, lumbar region; Z98.1 Arthrodesis status
CPT/HCPCS: 72100; 73521

== ENCOUNTER → 2019-08-11 | Outpatient (CLI) | payer MEDICARE ==
--- NOTE | 2019-08-11 15:00 | BD ---
EXAMINATION TYPE: Axial Bone Density DATE OF EXAM: 08/11/2019 COMPARISON: 03/01/2013 CLINICAL HISTORY: M 82.0 Height: 57 inches Weight: 115 FRAX RISK QUESTIONS: Alcohol (3 or more units per day): no Family History (Parent hip fracture): yes, father Glucocorticoids (More than 3mos): no (Ex: prednisone, prednisolone, methylprednisolone, dexamethasone, and hydrocortisone). History of Fracture in Adulthood: no Secondary Osteoporosis: 1. Type 1 Diabetes: no 2. Hyperthyroidism: no 3. Menopause before 45: yes 4. Malnutrition: no 5. Chronic liver disease: no Rheumatoid Arthritis: unsure, one Dr years ago told patient yes, recent physician stated "arthritis" all through body Current Tobacco Use: no RISK FACTORS HISTORY OF: Spine Fracture: yes, cervical When: 4-5 years ago Surgery to Spine: yes When: before 2002 Family History of Osteoporosis: unsure Active: yes, but uses walker Diet low in dairy products/other sources of calcium: no Postmenopausal woman: yes Take estrogen and/or progesterone medications: not now When: a few years after hysterectomy Lost more than 2 inches in height since high school: unsure...states height was about 5 ft at one estefania e Frequent falls: Poor Health: somewhat Hyperparathyroidism: unsure Adrenal Insufficiency: unsure MEDICATIONS: Prednisone or other steroids: not now How Long: used to use inhaler in winter months on & off for 10 years Thyroid Medications: yes Which medication: Levothyroxine How Long: over 20 years Osteoporosis Medications: no Additional Medications: diabetic meds,cholesterol med Additional History: stage 3 kidney failure, type 2 diabetic EXAM MEASUREMENTS: Bone mineral densitometry was performed using the [employer] System. Bone mineral density NOT measured about the Lumbar spine due to back surgery Bone mineral density about the R hip (g/cm2): 1.039 Bone mineral density about the L hip (g/cm2): 1.145 T Score values are as follows: -----R Neck: 0.0 -----L Neck: 0.8 -----R Total: 0.7 -----L Total: 0.9 Bone mineral density has: Decreased -6.2% since study of: 03/01/2013 Bone mineral density about the L Wrist (g/cm2): 0.527 T Score values are as follows: -----Dist. R+U: -0.8 -----Prox. R+U: -3.3 -----Radius total: -2.4 Bone mineral density not previously done on forearm IMPRESSION: Osteoporosis (T Score less than -2.5). There is increased fracture risk and therapy is usually indicated based on age. Re-Screen 1-2 years. NOTE: T-SCORE=SD OF THE YOUNG ADULT MEAN.
--- NOTE | 2019-08-13 11:48 | MM ---
Reason for exam: screening (asymptomatic). Last mammogram was performed 1 year and 1 month ago. History: Patient is postmenopausal, has history of endometrial cancer at age 33, and is nulliparous. Family history of breast cancer in maternal aunt at age 55. Physical Findings: A clinical breast exam by your physician is recommended on an annual basis and results should be correlated with mammographic findings. MG 3D Screening Mammo W/Cad Bilateral CC and MLO view(s) were taken. Prior study comparison: July 01, 2018, bilateral MG 3d screening mammo w/cad. May 14, 2017, bilateral MG 3d screening mammo w/cad. The breast tissue is heterogeneously dense. This may lower the sensitivity of mammography. Loop recorder on the left. Benign oil cyst and dystrophic calcifications bilaterally. Nodular bilateral breast tissue. ASSESSMENT: Benign, BI-RAD 2 RECOMMENDATION: Routine screening mammogram of both breasts in 1 year.
== END | disposition home or self-care (01) ==
LOC: RADMAMWWP 12:17
PROVIDERS: ATTEND Family Medicine
DX: Z12.31 Encounter for screening mammogram for malignant neoplasm of breast (principal); M81.0 Age-related osteoporosis without current pathological fracture
CPT/HCPCS: 77063; 77067; 77080

== ENCOUNTER 2019-09-07 13:13 | Emergency (ER) | payer MEDICARE ==
--- NOTE | 2019-09-07 13:47 | ED ---
General Adult HPI - General Chief complaint: Head Injury Stated complaint: trip & fall/head lac Time Seen by Provider: 09/07/19 13:20 Source: patient, RN notes reviewed, old records reviewed Mode of arrival: wheelchair Limitations: no limitations - History of Present Illness Initial comments: This is a 74-year-old female presents emergency Department complaining of hitting the back of her head after she fell. Patient states she was using her walker tire got caught on something and she lost her balance and fell backwards. Patient states she hit the back of her head on the desk and she fell down. Patient denies any loss of consciousness. Patient states she was a little bit days when it first happened but she was back to her baseline very quickly. Patient denies any neck pain. Patient denies any numbness weakness. Patient denies any upper back or lower back pain. Patient denies any chest pain. Patient denies any abdominal pain patient denies nausea vomiting diarrhea. Denies any extremity pain except for the medial aspect of her left knee. - Related Data Home Medications Medication Instructions Recorded Confirmed LORazepam [Ativan] 0.5 mg PO TID PRN 10/15/14 09/07/19 Naproxen 500 mg PO DAILY 10/15/14 09/07/19 Simvastatin [Zocor] 20 mg PO DAILY 10/15/14 09/07/19 Meclizine [Antivert] 25 mg PO TID PRN 09/18/15 09/07/19 Furosemide [Lasix] 40 mg PO MOWEFR 05/30/16 09/07/19 Levothyroxine Sodium [Synthroid] 100 mcg PO DAILY 05/30/16 09/07/19 Acetaminophen [Tylenol] 500 mg PO Q4-6H PRN 05/22/18 09/07/19 Metoclopramide [Reglan] 10 mg PO DAILY 05/22/18 09/07/19 Omeprazole [PriLOSEC] 20 mg PO DAILY 05/22/18 09/07/19 Vit C/E/Zn/Coppr/Lutein/Zeaxan 2 cap PO DAILY 05/22/18 09/07/19 [Preservision Areds 2 Softgel] traMADol HCL [Ultram] 50 mg PO DAILY PRN 05/22/18 09/07/19 Citalopram Hydrobromide 40 mg PO DAILY 09/07/19 09/07/19 [Citalopram HBr] Ertugliflozin/Metformin 1 tab PO BID 09/07/19 09/07/19 [Segluromet 7.5-1,000 mg Tablet] Ferrous Sulfate [Feosol] 325 mg PO DAILY 09/07/19 09/07/19 Magnesium Oxide 400 mg PO DAILY 09/07/19 09/07/19 Potassium Chloride ER [K-Dur 10] 10 meq PO DAILY 09/07/19 09/07/19 hydrOXYzine HCL [Atarax] 50 mg PO BID 09/07/19 09/07/19 Previous Rx's Medication Instructions Recorded Gabapentin [Neurontin] 100 mg PO HS #30 cap 05/25/18 Allergies Allergy/AdvReac Type Severity Reaction Status Date / Time Penicillins Allergy Rash/Hives Verified 09/07/19 15:18 Review of Systems ROS Statement: Those systems with pertinent positive or pertinent negative responses have been documented in the HPI. ROS Other: All systems not noted in ROS Statement are negative. Past Medical History Past Medical History: Diabetes Mellitus, Fibromyalgia, GERD/Reflux, Hyperlipidemia, Osteoarthritis (OA), Renal Disease, Thyroid Disorder Additional Past Medical History / Comment(s): uterine ca 50 years ago sx only.past falls, past c2 fx no sx but wore a brace , [place] eyes, uti's,. dizziness at times and occ when sitting will. blank out for few min-last time this happened was 4 months ago. stage 3 kidney failure History of Any Multi-Drug Resistant Organisms: None Reported Past Surgical History: Adenoidectomy, Back Surgery, Bariatric Surgery, Cholecystectomy, Hysterectomy, Tonsillectomy Additional Past Surgical History / Comment(s): loop monitor implanted 03-30-18 Past Anesthesia/Blood Transfusion Reactions: No Reported Reaction Past Psychological History: Anxiety, Depression Smoking Status: Never smoker Past Alcohol Use History: None Reported Past Drug Use History: None Reported - Past Family History Brother(s) Family Medical History: Cancer Mother Family Medical History: Dementia Father Family Medical History: Myocardial Infarction ([place]) General Exam - General Exam Comments Initial Comments: GENERAL: Patient is well-developed and well-nourished. Patient is nontoxic and well- hydrated and is in mild distress. ENT: Neck is soft and supple. No significant lymphadenopathy is noted. Oropharynx is clear. Moist mucous membranes. Neck has full range of motion without eliciting any pain. EYES: The sclera were anicteric and conjunctiva were pink and moist. Extraocular movements were intact and pupils were equal round and reactive to light. Eyelids were unremarkable. PULMONARY: Unlabored respirations. Good breath sounds bilaterally. No audible rales rhonchi or wheezing was noted. CARDIOVASCULAR: There is a regular rate and rhythm without any murmurs gallops or rubs. ABDOMEN: Soft and nontender with normal bowel sounds. SKIN: Patient has a 2 and half centimeter laceration to the occipital region of her scalp. NEUROLOGIC: Patient is alert and oriented x3. Cranial nerves II through XII are grossly intact. Motor and sensory are also intact. Normal speech, volume and content. Symmetrical smile. MUSCULOSKELETAL: Normal extremities with adequate strength and full range of motion. Patient has slight tenderness to the medial aspect of her knee and a little area of contusion LYMPHATICS: No significant lymphadenopathy is noted PSYCHIATRIC: Normal psychiatric evaluation. Limitations: no limitations Course Vital Signs 09/07/19 13:19 Temperature 98.2 F Pulse Rate 84 Respiratory 18 Rate Blood Pressure 147/75 O2 Sat by Pulse 99 Oximetry Procedures - Laceration Laceration #1 Consent Obtained: verbal consent Indication: laceration Site: scalp Description: linear Depth: simple, single layer Size of Sutures: other ([place]) Number of Sutures: 3 Complications: pain Patient Tolerated Procedure: well Medical Decision Making - Medical Decision Making CT of the brain and C-spine were negative. X-ray of the knee was negative. Patient was able to ambulate at her baseline. I stapled up the patient's scalp she has already had a tetanus shot recently. Disposition Clinical Impression: Closed head injury, Scalp laceration Disposition: HOME SELF-CARE Condition: Good Instructions (If sedation given, give patient instructions): Head Injury (ED), Laceration (ED) Is patient prescribed a controlled substance at d/c from ED?: No Referrals: Herberth Roe DO [Primary Care Provider] - 1-2 days Time of Disposition: 15:45
--- NOTE | 2019-09-07 14:37 | CT ---
EXAMINATION TYPE: CT brain cspine wo con DATE OF EXAM: 09/07/2019 COMPARISON: CT brain and cervical spine May 22, 2018 HISTORY: fell backwards today with headache and neck pain. CT DLP: 1287.1 mGycm. Automated Exposure Control for Dose Reduction was Utilized. TECHNIQUE: CT scan of the head and cervical spine are performed without contrast. FINDINGS: There is no acute intracranial hemorrhage or midline shift identified diffuse ventricular and sulcal prominence. Some vague low-attenuation right parietal periventricular white matter is red emonstrated presumed on basis of product of chronic small vessel ischemic change. The calvarium is i ntact. The globes are intact and the visualized sinuses are clear. Cervical spine is visualized in its entirety from C1 through upper thoracic levels and demonstrates r eversal of normal cervical curvature with grade 1 anterolisthesis C3 on C4 and to lesser degree C4-C5 . No acute fracture or dislocation. Vertebral body heights are maintained. Moderate to severe spurrin g and disc space narrowing C5-C6 and C6-C7 levels with spur disc complexes effacing the anterior thec al sac. Review of axial images shows persistent uncovertebral facet degenerative changes bilaterally contributing to multilevel bilateral neural foraminal narrowing. Thyroid remains small in size. Stabl e mild/moderate calcified plaque left greater than right bilateral carotid bulbs. Visualized lung api heladio show no pneumothorax. There is partial visualization of suspected thoracic aortic aneurysm. IMPRESSION: 1. There is no acute fracture or dislocation evident in the cervical spine. 2. No acute intracranial hemorrhage or midline shift is seen.
--- NOTE | 2019-09-07 14:37 | XR ---
EXAMINATION TYPE: XR knee complete LT DATE OF EXAM: 09/07/2019 CLINICAL HISTORY: Left knee pain after fall TECHNIQUE: Three views of the left knee are obtained. COMPARISON: None. FINDINGS: There is no acute fracture/dislocation evident in left knee. The tri-compartment joint sp aces appear aligned. Chondrocalcinosis is seen of the lateral compartment. Joint space narrowing is s een of the medial compartment with small marginal osteophytes. Fabella is incidentally noted. The ove rlying soft tissue appears unremarkable. Diffuse osseous demineralization is seen. IMPRESSION: 1. No acute fracture or dislocation in the left knee. 2. Mild medial compartment arthrosis and lateral compartment chondrocalcinosis. 3. Diffuse osseous demineralization.
[2019-09-07] MEDS ORDERED: ACETAMINOPHEN TAB 500 MG TAB PO STA (15:14)
[2019-09-07 16:08] VITALS: BP 139/81; PULSE 91; RESP 21; TEMP 97.7
== END 2019-09-07 16:08 | disposition home or self-care (01) ==
LOC: EC 13:13
DX: S01.01XA Laceration without foreign body of scalp, initial encounter (principal); F41.9 Anxiety disorder, unspecified; F32.9 Major depressive disorder, single episode, unspecified; E07.9 Disorder of thyroid, unspecified; E11.9 Type 2 diabetes mellitus without complications; K21.9 Gastro-esophageal reflux disease without esophagitis; E78.5 Hyperlipidemia, unspecified; Z79.1 Long term (current) use of non-steroidal anti-inflammatories (NSAID); Z79.899 Other long term (current) drug therapy; Z79.890 Hormone replacement therapy; Z88.0 Allergy status to penicillin; Z98.84 Bariatric surgery status; Z85.42 Personal history of malignant neoplasm of other parts of uterus; W01.198A Fall on same level from slipping, tripping and stumbling with subsequent striking against other object, initial encounter
CPT/HCPCS: 12001; 70450; 72125; 99284

== ENCOUNTER → 2019-10-13 | Outpatient (CLI) | payer MEDICARE ==
[~2019-10-13] MED LIST changes: -CLINDAMYCIN 900 MG in DEXTROSE 5% IN WATER 50 ML IVPB ONE; +DENOSUMAB 60 MG/ML 1 ML SYRINGE SQ NR; -SODIUM CHLORIDE 0.9% 1,000 ML IV SCH
[2019-10-13 14:32] VITALS: BP 129/72; PULSE 100; RESP 16; TEMP 98.6
== END | disposition home or self-care (01) ==
LOC: PROCWHC3 14:10
PROVIDERS: ATTEND Family Medicine
DX: M81.0 Age-related osteoporosis without current pathological fracture (principal)
CPT/HCPCS: 96372

== ENCOUNTER 2019-10-19 16:45 | Emergency (ER) | payer MEDICARE ==
[2019-10-19 17:30] VITALS: RESP 18
--- NOTE | 2019-10-19 18:55 | ED ---
General Adult HPI - General Chief complaint: Extremity Problem,Nontraumatic Stated complaint: kidney failure-weight gain/water retention Time Seen by Provider: 10/19/19 18:23 Source: patient Mode of arrival: ambulatory Limitations: no limitations - History of Present Illness Initial comments: Patient is 74-year-old female with history of type 2 diabetes and stage III renal failure presenting to emergency Department with a chief complaint of leg swelling and shortness of breath. Patient states she was at the primary care yesterday who suggested she come to the ED for evaluation. 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 Patient states she has developed bilateral lower extremity edema over the last several days with dyspnea on exertion. Patient reports taking 40 mg of Lasix daily and has been doing so as recommended. Patient denies any chest pain, back pain, no pain nausea or vomiting or diarrhea. Patient reports losing ulcers on bilateral lower extremities after she developed bilateral lower extremity edema. - Related Data Home Medications Medication Instructions Recorded Confirmed LORazepam [Ativan] 0.5 mg PO TID PRN 10/15/14 10/13/19 Naproxen 500 mg PO DAILY 10/15/14 10/13/19 Simvastatin [Zocor] 20 mg PO DAILY 10/15/14 10/13/19 Meclizine [Antivert] 25 mg PO TID PRN 09/18/15 10/13/19 Furosemide [Lasix] 40 mg PO MOWEFR 05/30/16 10/13/19 Levothyroxine Sodium [Synthroid] 100 mcg PO DAILY 05/30/16 10/13/19 Acetaminophen [Tylenol] 500 mg PO Q4-6H PRN 05/22/18 10/13/19 Metoclopramide [Reglan] 10 mg PO DAILY 05/22/18 10/13/19 Omeprazole [PriLOSEC] 20 mg PO DAILY 05/22/18 10/13/19 Vit C/E/Zn/Coppr/Lutein/Zeaxan 2 cap PO DAILY 05/22/18 10/13/19 [Preservision Areds 2 Softgel] traMADol HCL [Ultram] 50 mg PO DAILY PRN 05/22/18 10/13/19 Citalopram Hydrobromide 40 mg PO DAILY 09/07/19 10/13/19 [Citalopram HBr] Ertugliflozin/Metformin 1 tab PO BID 09/07/19 10/13/19 [Segluromet 2.5-1,000 mg Tablet] Ferrous Sulfate [Feosol] 325 mg PO DAILY 09/07/19 10/13/19 Magnesium Oxide 400 mg PO DAILY 09/07/19 10/13/19 Potassium Chloride ER [K-Dur 10] 10 meq PO DAILY 09/07/19 10/13/19 hydrOXYzine HCL [Atarax] 100 mg PO HS 09/07/19 10/13/19 Previous Rx's Medication Instructions Recorded Gabapentin [Neurontin] 100 mg PO HS #30 cap 05/25/18 Allergies Allergy/AdvReac Type Severity Reaction Status Date / Time Penicillins Allergy Rash/Hives Verified 10/13/19 14:25 Review of Systems ROS Statement: Those systems with pertinent positive or pertinent negative responses have been documented in the HPI. ROS Other: All systems not noted in ROS Statement are negative. Past Medical History Past Medical History: Diabetes Mellitus, Fibromyalgia, GERD/Reflux, Hyperlipidemia, Osteoarthritis (OA), Renal Disease, Thyroid Disorder Additional Past Medical History / Comment(s): uterine ca 50 years ago sx only.past falls, past c2 fx no sx but wore a brace , [place] eyes, uti's,. dizziness at times and occ when sitting will. blank out for few min-last time this happened was 4 months ago. stage 3 kidney failure History of Any Multi-Drug Resistant Organisms: None Reported Past Surgical History: Adenoidectomy, Back Surgery, Bariatric Surgery, Cholecystectomy, Hysterectomy, Tonsillectomy Additional Past Surgical History / Comment(s): loop monitor implanted 03-30-18 Past Anesthesia/Blood Transfusion Reactions: No Reported Reaction Past Psychological History: Anxiety, Depression Smoking Status: Never smoker Past Alcohol Use History: None Reported Past Drug Use History: None Reported - Past Family History Brother(s) Family Medical History: Cancer Mother Family Medical History: Dementia Father Family Medical History: Myocardial Infarction ([place]) General Exam Limitations: no limitations General appearance: alert, in no apparent distress Head exam: Present: atraumatic, normocephalic, normal inspection Eye exam: Present: normal appearance, PERRL, EOMI Pupils: Present: normal accommodation ENT exam: Present: normal exam, mucous membranes moist Neck exam: Present: normal inspection, full ROM Respiratory exam: Present: rales (Mild crackles bilaterally). Absent: respiratory distress, wheezes Cardiovascular Exam: Present: regular rate, normal rhythm, normal heart sounds Extremities exam: Present: full ROM, tenderness (Tenderness in bilateral lower external nares.), pedal edema (+3 pitting edema.). Absent: normal inspection (Multiple ulcers on bilateral lower extremities with some clear watery discharge.) Back exam: Present: normal inspection, full ROM Neurological exam: Present: alert, oriented X3 Psychiatric exam: Present: normal affect, normal mood Skin exam: Present: warm, dry, intact, normal color Course Vital Signs 10/19/19 10/19/19 17:26 20:51 Temperature 97.9 F 97.6 F Pulse Rate 78 73 Respiratory 18 18 Rate Blood Pressure 155/78 149/91 O2 Sat by Pulse 97 100 Oximetry Medical Decision Making - Medical Decision Making Patient is 74-year-old female with history of type 2 diabetes and stage III renal failure presenting to emergency Department with a chief complaint of leg swelling and shortness of breath. Patient states she was at the primary care yesterday who suggested she come to the ED for evaluation. Patient has develope d bilateral lower extremity edema or last several days along with dyspnea on exertion. Patient does have bilateral lower external edema at baseline although this is increased. Patient has no history of heart failure. Initial troponin is negative. BMP is at 600. Chest x-ray is unremarkable. EKG shows no significant ST changes or T-wave inversions. Patient was given 40 mg of IV Lasix. Patient appears to have dependent edema. The shortness of breath is most like secondary to fluid overload. No pulmonary edema noted. Patient denies chest pain or cough. Patient was to follow-up with primary care. Strict return parameters were thoroughly discussed the patient was understanding and a greeable. Case discussed with physician. - Lab Data Result diagrams: 10/19/19 19:00 10/19/19 19:00 Lab Results 10/19/19 10/19/19 10/19/19 Range/Units 19:00 19:00 19:00 WBC 8.0 (3.8-10.6) k/uL RBC 3.57 L (3.80-5.40) m/uL Hgb 10.9 L (11.4-16.0) gm/dL Hct 32.9 L (34.0-46.0) % MCV 92.0 (80.0-100.0) fL MCH 30.5 (25.0-35.0) pg MCHC 33.1 (31.0-37.0) g/dL RDW 13.0 (11.5-15.5) % Plt Count 279 (150-450) k/uL Neutrophils % 65 % Lymphocytes % 17 % Monocytes % 6 % Eosinophils % 6 % Basophils % 3 % Neutrophils # 5.2 (1.3-7.7) k/uL Lymphocytes # 1.3 (1.0-4.8) k/uL Monocytes # 0.5 (0-1.0) k/uL Eosinophils # 0.5 (0-0.7) k/uL Basophils # 0.2 (0-0.2) k/uL PT (9.0-12.0) sec INR (<1.2) APTT (22.0-30.0) sec Sodium 138 (137-145) mmol/L Potassium 4.7 (3.5-5.1) mmol/L Chloride 105 (98-107) mmol/L Carbon Dioxide 26 (22-30) mmol/L Anion Gap 7 mmol/L BUN 31 H (7-17) mg/dL Creatinine 1.01 (0.52-1.04) mg/dL Est GFR (CKD-EPI)AfAm 64 (>60 ml/min/1.73 sqM) Est GFR (CKD-EPI)NonAf 55 (>60 ml/min/1.73 sqM) Glucose 112 H (74-99) mg/dL POC Glucose (mg/dL) (75-99) mg/dL POC Glu [place] Cleaner ID Calcium 9.8 (8.4-10.2) mg/dL Magnesium 2.1 (1.6-2.3) mg/dL Total Bilirubin 0.6 (0.2-1.3) mg/dL AST 29 (14-36) U/L ALT 9 (4-34) U/L Alkaline Phosphatase 102 (38-126) U/L Troponin I (0.000-0.034) ng/mL NT-Pro-B Natriuret Pep 603 pg/mL Total Protein 7.5 (6.3-8.2) g/dL Albumin 4.2 (3.5-5.0) g/dL 10/19/19 10/19/19 10/19/19 Range/Units 19:00 19:00 19:08 WBC (3.8-10.6) k/uL RBC (3.80-5.40) m/uL Hgb (11.4-16.0) gm/dL Hct (34.0-46.0) % MCV (80.0-100.0) fL MCH (25.0-35.0) pg MCHC (31.0-37.0) g/dL RDW (11.5-15.5) % Plt Count (150-450) k/uL Neutrophils % % Lymphocytes % % Monocytes % % Eosinophils % % Basophils % % Neutrophils # (1.3-7.7) k/uL Lymphocytes # (1.0-4.8) k/uL Monocytes # (0-1.0) k/uL Eosinophils # (0-0.7) k/uL Basophils # (0-0.2) k/uL PT 9.8 (9.0-12.0) sec INR 0.9 (<1.2) APTT 22.1 (22.0-30.0) sec Sodium (137-145) mmol/L Potassium (3.5-5.1) mmol/L Chloride (98-107) mmol/L Carbon Dioxide (22-30) mmol/L Anion Gap mmol/L BUN (7-17) mg/dL Creatinine (0.52-1.04) mg/dL Est GFR (CKD-EPI)AfAm (>60 ml/min/1.73 sqM) Est GFR (CKD-EPI)NonAf (>60 ml/min/1.73 sqM) Glucose (74-99) mg/dL POC Glucose (mg/dL) 122 H (75-99) mg/dL POC Glu [place] [employer] ID Jyoti Morelos Calcium (8.4-10.2) mg/dL Magnesium (1.6-2.3) mg/dL Total Bilirubin (0.2-1.3) mg/dL AST (14-36) U/L ALT (4-34) U/L Alkaline Phosphatase (38-126) U/L Troponin I <0.012 (0.000-0.034) ng/mL NT-Pro-B Natriuret Pep pg/mL Total Protein (6.3-8.2) g/dL Albumin (3.5-5.0) g/dL Disposition Clinical Impression: Dependent edema, Shortness of breath on exertion Disposition: HOME SELF-CARE Condition: Stable Instructions (If sedation given, give patient instructions): Leg Edema (ED) Additional Instructions: Please follow with primary care. Return to emergency department if symptoms worsen. Is patient prescribed a controlled substance at d/c from ED?: No Referrals: Herberth Roe DO [Primary Care Provider] - 1-2 days Time of Disposition: 20:34
[2019-10-19 19:09] LABS: Glucose,Whole Blood 122 mg/dL (75-99)
[2019-10-19 19:20] LABS: Basophils # (A) 0.2 k/uL (0-0.2); Basophils % (A) 3 %; Eosinophils # (A) 0.5 k/uL (0-0.7); Eosinophils % (A) 6 %; HCT 32.9 % (34.0-46.0); HGB 10.9 gm/dL (11.4-16.0); Lymphocytes # (A) 1.3 k/uL (1.0-4.8); Lymphocytes % (A) 17 %; MCH 30.5 pg (25.0-35.0); MCHC 33.1 g/dL (31.0-37.0); Mean Platelet Volume 6.8; Monocytes # (A) 0.5 k/uL (0-1.0); Monocytes % (A) 6 %; Neutrophils # (A) 5.2 k/uL (1.3-7.7); Neutrophils % (A) 65 %; Platelet Count 279 k/uL (150-450); RBC 3.57 m/uL (3.80-5.40)
[2019-10-19 19:26] LABS: Albumin 4.2 g/dL (3.5-5.0); Calcium 9.8 mg/dL (8.4-10.2); INR 0.9 (<1.2); Magnesium 2.1 mg/dL (1.6-2.3); Partial Thromboplastin Time 22.1 sec (22.0-30.0); Potassium 4.7 mmol/L (3.5-5.1); Prothrombin Time 9.8 sec (9.0-12.0); Total Bilirubin 0.6 mg/dL (0.2-1.3); Total Protein 7.5 g/dL (6.3-8.2)
--- NOTE | 2019-10-19 19:34 | XR ---
EXAMINATION TYPE: XR chest 2V DATE OF EXAM: 10/19/2019 COMPARISON: 03/15/2014 HISTORY: Arm pain TECHNIQUE: FINDINGS: There is some linear density left lung base. Heart size is normal. There is no heart failur e. There are no hilar masses. Bony thorax is intact. IMPRESSION: Minimal scarring or subsegmental atelectasis left lung base unchanged. Normal heart.
[2019-10-19] MEDS ORDERED: FUROSEMIDE 10 MG/ML 4 ML VIAL IV STA (20:32)
[2019-10-19 21:00] VITALS: BP 149/91; PULSE 73; TEMP 97.6
== END 2019-10-19 21:00 | disposition home or self-care (01) ==
LOC: EC 16:45
DX: R06.02 Shortness of breath (principal); R60.0 Localized edema; R06.09 Other forms of dyspnea; E11.22 Type 2 diabetes mellitus with diabetic chronic kidney disease; N18.3 Chronic kidney disease, stage 3 (moderate); E07.9 Disorder of thyroid, unspecified; K21.9 Gastro-esophageal reflux disease without esophagitis; F41.9 Anxiety disorder, unspecified; F32.9 Major depressive disorder, single episode, unspecified; Z79.890 Hormone replacement therapy; Z79.899 Other long term (current) drug therapy; Z88.0 Allergy status to penicillin; Z98.84 Bariatric surgery status; Z85.42 Personal history of malignant neoplasm of other parts of uterus
CPT/HCPCS: 36415; 93005; 83880; 80053; 83735; 84484; 85025; 85610; 85730; 71046; 99285; 96374; J1940

== ENCOUNTER 2019-11-01 18:30 | Emergency (ER) | payer MEDICARE ==
[2019-11-01 18:48] VITALS: RESP 18
--- NOTE | 2019-11-01 19:21 | ED ---
Extremity Problem HPI - General Chief complaint: Recheck/Abnormal Lab/Rx Stated complaint: left leg pain Time Seen by Provider: 11/01/19 19:13 Source: patient, RN notes reviewed, old records reviewed Mode of arrival: ambulatory Limitations: no limitations - History of Present Illness Initial comments: This is a 74-year-old female presents a for evaluation of right lower [place] pain. History of claudication pain at rest; up with cardiology. Patient has had persistent right laboratory pain. Otherwise no other complaints or travel history no sick contacts. No trauma noted to that area. Patient's has severe pain with palpation and severe pain with ambulation MD Complaint: extremity pain, joint pain, other (R leg pain) -: days(s) Location: right, lower extremity History of Same: Yes -: Yes myalgia, Yes arthralgia Radiation: proximal, distal Severity scale (1-10): 10 Quality: stabbing, aching Consistency: constant Improves with: nothing Worsens with: nothing Associated Symptoms: denies other symptoms - Related Data Home Medications Medication Instructions Recorded Confirmed LORazepam [Ativan] 0.5 mg PO TID PRN 10/15/14 10/13/19 Naproxen 500 mg PO DAILY 10/15/14 10/13/19 Simvastatin [Zocor] 20 mg PO DAILY 10/15/14 10/13/19 Meclizine [Antivert] 25 mg PO TID PRN 09/18/15 10/13/19 Furosemide [Lasix] 40 mg PO MOWEFR 05/30/16 10/13/19 Levothyroxine Sodium [Synthroid] 100 mcg PO DAILY 05/30/16 10/13/19 Acetaminophen [Tylenol] 500 mg PO Q4-6H PRN 05/22/18 10/13/19 Metoclopramide [Reglan] 10 mg PO DAILY 05/22/18 10/13/19 Omeprazole [PriLOSEC] 20 mg PO DAILY 05/22/18 10/13/19 Vit C/E/Zn/Coppr/Lutein/Zeaxan 2 cap PO DAILY 05/22/18 10/13/19 [Preservision Areds 2 Softgel] traMADol HCL [Ultram] 50 mg PO DAILY PRN 05/22/18 10/13/19 Citalopram Hydrobromide 40 mg PO DAILY 09/07/19 10/13/19 [Citalopram HBr] Ertugliflozin/Metformin 1 tab PO BID 09/07/19 10/13/19 [Segluromet 2.5-1,000 mg Tablet] Ferrous Sulfate [Feosol] 325 mg PO DAILY 09/07/19 10/13/19 Magnesium Oxide 400 mg PO DAILY 09/07/19 10/13/19 Potassium Chloride ER [K-Dur 10] 10 meq PO DAILY 09/07/19 10/13/19 hydrOXYzine HCL [Atarax] 100 mg PO HS 09/07/19 10/13/19 Previous Rx's Medication Instructions Recorded Gabapentin [Neurontin] 100 mg PO HS #30 cap 05/25/18 Diazepam [Valium] 5 mg PO TID PRN 3 Days #9 tab 11/01/19 Allergies Allergy/AdvReac Type Severity Reaction Status Date / Time Penicillins Allergy Rash/Hives Verified 11/01/19 18:44 Review of Systems ROS Statement: Those systems with pertinent positive or pertinent negative responses have been documented in the HPI. ROS Other: All systems not noted in ROS Statement are negative. Past Medical History Past Medical History: Diabetes Mellitus, Fibromyalgia, GERD/Reflux, Hyperlipidemia, Osteoarthritis (OA), Renal Disease, Thyroid Disorder Additional Past Medical History / Comment(s): uterine ca 50 years ago sx only.past falls, past c2 fx no sx but wore a brace , [place] eyes, uti's,. dizziness at times and occ when sitting will. blank out for few min-last time this happened was 4 months ago. stage 3 kidney failure History of Any Multi-Drug Resistant Organisms: None Reported Past Surgical History: Adenoidectomy, Back Surgery, Bariatric Surgery, Cholecystectomy, Hysterectomy, Tonsillectomy Additional Past Surgical History / Comment(s): loop monitor implanted 03-30-18 Past Anesthesia/Blood Transfusion Reactions: No Reported Reaction Past Psychological History: Anxiety, Depression Smoking Status: Never smoker Past Alcohol Use History: None Reported Past Drug Use History: None Reported - Past Family History Brother(s) Family Medical History: Cancer Mother Family Medical History: Dementia Father Family Medical History: Myocardial Infarction ([place]) General Exam - General Exam Comments Initial Comments: RLE severely tender to palpation Limitations: no limitations General appearance: alert, in no apparent distress Head exam: Present: atraumatic, normocephalic, normal inspection Eye exam: Present: normal appearance, PERRL, EOMI. Absent: scleral icterus, conjunctival injection, periorbital swelling ENT exam: Present: normal exam, mucous membranes moist Neck exam: Present: normal inspection. Absent: tenderness, meningismus, lymphadenopathy Respiratory exam: Present: normal lung sounds bilaterally. Absent: respiratory distress, wheezes, rales, rhonchi, stridor Cardiovascular Exam: Present: regular rate, normal rhythm, normal heart sounds. Absent: systolic murmur, diastolic murmur, rubs, gallop, clicks GI/Abdominal exam: Present: soft, normal bowel sounds. Absent: distended, tenderness, guarding, rebound, rigid Extremities exam: Present: normal inspection, full ROM, normal capillary refill. Absent: tenderness, pedal edema, joint swelling, calf tenderness Back exam: Present: normal inspection Neurological exam: Present: alert, oriented X3, CN II-XII intact Psychiatric exam: Present: normal affect, normal mood Skin exam: Present: warm, dry, intact, normal color. Absent: rash Course Vital Signs 11/01/19 18:44 Temperature 98 F Pulse Rate 81 Respiratory 18 Rate Blood Pressure 150/71 O2 Sat by Pulse 96 Oximetry - Reevaluation(s) Reevaluation #1: 11/01/19 19:20 medical record is reviewed Reevaluation #2: 11/01/19 22:01 Pain is controlled Medical Decision Making - Medical Decision Making 74 female here for evaluation of laboratory pain. Patient is having significant right lower extremity tenderness although significantly improved. Ultrasound is negative for DVT and patient will be discharged home - Radiology Data Radiology results: report reviewed (Ultrasound negative for DVT), image reviewed Disposition Clinical Impression: Pain in right leg, Myalgia Disposition: HOME SELF-CARE Condition: Good Instructions (If sedation given, give patient instructions): Leg Pain (ED) Prescriptions: Diazepam [Valium] 5 mg PO TID PRN 3 Days #9 tab PRN Reason: Muscle Pain Is patient prescribed a controlled substance at d/c from ED?: Yes When asked, does pt state using other controlled substances?: Yes If prescribed controlled substance>3 days was MAPS reviewed?: Prescribed <3 Days Referrals: Herberth Roe DO [Primary Care Provider] - 1-2 days
[2019-11-01] MEDS ORDERED: DIAZEPAM 5 MG TAB PO STA (19:22)
[2019-11-01] MEDS ORDERED: HYDROmorphone 1 MG/ML 1 ML SYRINGE IM STA (19:22)
[2019-11-01] MEDS ORDERED: IBUPROFEN 600 MG TAB PO STA (19:22)
--- NOTE | 2019-11-01 20:25 | US ---
EXAMINATION TYPE: US venous doppler duplex LE RT DATE OF EXAM: 11/01/2019 8:07 PM COMPARISON: NONE CLINICAL HISTORY: dvt. R/O DVT. Pain right leg x 4 days. No hx of DVT. Patient does not take blood th inners. SIDE PERFORMED: Right TECHNIQUE: The lower extremity deep venous system is examined utilizing real time linear array sonog james with graded compression, doppler sonography and color-flow sonography. VESSELS IMAGED: External Iliac Vein (EIV) Common Femoral Vein Deep Femoral Vein Greater Saphenous Vein * Femoral Vein Popliteal Vein Small Saphenous Vein * Proximal Calf Veins (* superficial vessels) Right Leg: No evidence of DVT at this time in veins imaged from prox calf veins to EIV. IMPRESSION: No evidence for DVT.
[2019-11-01] MEDS ORDERED: ACET/COD 300 MG/30 MG STARTER PACK 6 TAB BTL PO STA (21:37)
[2019-11-01] MEDS ORDERED: Acetaminophen-Codeine 300-30mg TAB PO STA (21:37)
[2019-11-01 22:17] VITALS: BP 130/73; PULSE 70; TEMP 98.3
== END 2019-11-01 22:16 | disposition home or self-care (01) ==
LOC: EC 18:30
DX: M79.604 Pain in right leg (principal); M79.7 Fibromyalgia; E11.9 Type 2 diabetes mellitus without complications; E78.5 Hyperlipidemia, unspecified; E07.9 Disorder of thyroid, unspecified; F41.9 Anxiety disorder, unspecified; F32.9 Major depressive disorder, single episode, unspecified; K21.9 Gastro-esophageal reflux disease without esophagitis; Z79.1 Long term (current) use of non-steroidal anti-inflammatories (NSAID); Z79.890 Hormone replacement therapy; Z79.899 Other long term (current) drug therapy; Z88.0 Allergy status to penicillin; Z79.84 Long term (current) use of oral hypoglycemic drugs; Z98.84 Bariatric surgery status
CPT/HCPCS: 93971; 99284; 96372; J1170

== ENCOUNTER 2019-11-17 06:29 | Day surgery (SDC) | payer MEDICARE ==
[~2019-11-17 06:29] MED LIST changes: +ALPRAZolam 0.25 MG TAB PO PRN; +ASPIRIN 325 MG TAB PO STA; -DENOSUMAB 60 MG/ML 1 ML SYRINGE SQ NR; +SODIUM CHLORIDE 0.9% 1,000 ML in EMPTY BAG 1 BAG IV ONE
[2019-11-17] MEDS ORDERED: SODIUM CHLORIDE 0.9% 1,000 ML IV ONE (06:52)
[2019-11-17 07:00] VITALS: RESP 16; TEMP 98.3
[2019-11-17] MEDS: MIDAZOLAM 2 MG/2 ML VIAL IVP ONE ×2 (07:49→07:59)
[2019-11-17] MEDS ORDERED: LIDOCAINE 1% INJ 10MG/ML (20 ML MDV) SQ ONE ×2 (07:55→08:04)
[2019-11-17] MEDS ORDERED: HYDROmorphone 1 MG/ML 1 ML SYRINGE IVP ONE (07:59)
[2019-11-17] MEDS ORDERED: SODIUM CHLORIDE 0.9% 1,000 ML IV SCH (08:30)
[2019-11-17] MEDS ORDERED: IOPAMIDOL-250 100ML BTL IV ONE (08:31)
--- NOTE | 2019-11-17 09:50 | IR ---
Fluoroscopy HISTORY: Pain in right leg 30 seconds fluoroscopy time supplied to the referring clinician. 91 intraoperative C-arm images docu ment the procedure. See dictated report from cardiology.
--- NOTE | 2019-11-17 18:04 | PCN ---
PROCEDURE NOTE DATE OF PROCEDURE: 11/17/2019. PERFORMING PHYSICIAN: Riccardo Swenson M.D. PROCEDURES PERFORMED: 1. Angiogram of the inferior vena cava. 2. Intravascular ultrasound (IVUS) of the inferior vena cava. 3. Angiogram of the bilateral common femoral veins, external iliac veins and common iliac veins. 4. IVUS of the bilateral common femoral veins, external iliac veins and common iliac veins as well. INDICATION: This is a 74-year-old female patient who was experiencing bilateral lower extremity edema without any improvement on maximized medical treatment, including diuretics. Because of that, she was brought today to undergo IVUS. APPROACH: Right and left common femoral veins. COMPLICATIONS: None. LEVEL OF SEDATION: Moderate, with sedation length of 30 minutes. PROCEDURE DESCRIPTION: After obtaining informed consent, the patient was brought to the cardiac lab courier. The right and left common femoral veins were cannulated using micropuncture technique. The micropuncture wire passed easily. Then I placed an 8-Egyptian sheath in both femoral veins. After that we did bilateral angiogram with injection through the sheath and then we did also IVUS of both iliacs as well as common femoral veins as well as IVC. The procedure was completed without any complication. FINDINGS: 1. The inferior vena cava was within normal limits. 2. Common iliac veins. The right common iliac vein was stenotic at 67% and the left common iliac vein was stenotic at 71%. 3. External iliac veins. Both external iliac veins were stenotic at 64%. 4. Common femoral veins. The right common femoral vein was stenotic at 27% and the left common femoral vein was stenotic at 43%. 5. Please note that the patient was found to have a thrombus in the right common femoral vein. CONCLUSION: 1. Normal inferior vena cava. 2. 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 3. Severe stenosis involving bilateral external iliac veins. 4. Severe stenosis involving the left common femoral vein. 5. Thrombus was seen at the right common femoral vein. POST-PROCEDURE MANAGEMENT: The patient will undergo stenting of bilateral iliac and bilateral external iliac veins after she is started on anticoagulation for about 4 weeks. MMODL / IJN: [id number] /
[2019-11-17 18:23] VITALS: BP 133/69; PULSE 86
== END 2019-11-17 14:10 | disposition home or self-care (01) ==
LOC: CATHCVL 06:29
PROVIDERS: ATTEND Internal Medicine Interventional Cardiology
DX: E11.51 Type 2 diabetes mellitus with diabetic peripheral angiopathy without gangrene (principal); I82.411 Acute embolism and thrombosis of right femoral vein; I12.9 Hypertensive chronic kidney disease with stage 1 through stage 4 chronic kidney disease, or unspecified chronic kidney disease; E11.22 Type 2 diabetes mellitus with diabetic chronic kidney disease; N18.3 Chronic kidney disease, stage 3 (moderate); I35.1 Nonrheumatic aortic (valve) insufficiency; E78.5 Hyperlipidemia, unspecified; R55 Syncope and collapse; Z79.1 Long term (current) use of non-steroidal anti-inflammatories (NSAID); Z79.890 Hormone replacement therapy; Z79.891 Long term (current) use of opiate analgesic; Z79.899 Other long term (current) drug therapy; Z88.0 Allergy status to penicillin
CPT/HCPCS: 36012; 75822; 75825; 37252; 37253; C1769 ×4; C1894; C1753; J2250; J2001; J1170; Q9966; 36005

== ENCOUNTER → 2019-11-24 | Outpatient (CLI) | payer MEDICARE ==
[2019-11-24 13:59] LABS: Basophils # (A) 0.1 k/uL (0-0.2); Basophils % (A) 1 %; Eosinophils # (A) 0.4 k/uL (0-0.7); Eosinophils % (A) 7 %; HCT 30.5 % (34.0-46.0); HGB 9.7 gm/dL (11.4-16.0); Lymphocytes % (A) 17 %; MCH 30.4 pg (25.0-35.0); MCHC 31.9 g/dL (31.0-37.0); MCV 95.3 fL (80.0-100.0); Mean Platelet Volume 6.6; Monocytes # (A) 0.4 k/uL (0-1.0); Monocytes % (A) 7 %; Neutrophils # (A) 3.7 k/uL (1.3-7.7); Neutrophils % (A) 63 %; Platelet Count 317 k/uL (150-450); RDW 14.8 % (11.5-15.5); WBC 5.9 k/uL (3.8-10.6)
[2019-11-24 21:07] LABS: % Iron Saturation 41.67 (12.00-45.00); African American GFR (CKD) 43.1 (60.0-200.0); Albumin 4.3 g/dL (3.80-4.90); BUN/Creat Ratio 29.29 Ratio (12.00-20.00); Calcium 9.7 mg/dL (8.7-10.3); Ferritin 712.6 ng/mL (10.0-291.0); Non-African American GFR(CKD) 37.2 (60.0-200.0); Potassium 4.6 mmol/L (3.5-5.5)
[2019-11-24 22:43] LABS: Creatinine,Urine Random 20.7 mg/dL; Total Protein,Urine Random 4.4 mg/dL (0.0-13.5)
== END | disposition home or self-care (01) ==
LOC: LABWHC1 12:58
PROVIDERS: ATTEND Nurse Practitioner Family
DX: D64.9 Anemia, unspecified (principal); E83.42 Hypomagnesemia; N18.3 Chronic kidney disease, stage 3 (moderate); R80.9 Proteinuria, unspecified
CPT/HCPCS: 36415; 80048; 82040; 82570; 82728; 83540; 83550; 83735; 84156; 85025

== ENCOUNTER → 2020-03-01 | Outpatient (CLI) | payer MEDICARE ==
--- NOTE | 2020-03-01 13:56 | XR ---
Abdomen HISTORY: Constipation Frontal abdomen submitted. There is a scoliotic curvature to the spine. Postop changes are noted to the lower lumbar spine. Surg ical clips are present left upper quadrant. There is overlying artifact. Retained fecal debris presen t throughout the distribution of the colon. Lung bases show some strand-like density at the lingula l evel which may be due to scarring. Loop recorder is present over the left heart. Calcifications in th e pelvis may represent phleboliths. No pneumoperitoneum evident. IMPRESSION: Ivette suggest fecal stasis. Follow-up as indicated. Additional findings above.
== END | disposition home or self-care (01) ==
LOC: RADXRMAIN 11:33
PROVIDERS: ATTEND Family Medicine
DX: K59.09 Other constipation (principal); Z98.890 Other specified postprocedural states
CPT/HCPCS: 74018

== ENCOUNTER → 2020-03-29 | Outpatient (CLI) | payer MEDICARE ==
[2020-03-29 14:02] LABS: HCT 34.2 % (34.0-46.0); MCHC 32.3 g/dL (31.0-37.0); MCV 95.9 fL (80.0-100.0); Mean Platelet Volume 6.6; Platelet Count 283 k/uL (150-450); RBC 3.57 m/uL (3.80-5.40); WBC 9.1 k/uL (3.8-10.6)
[2020-03-29 14:16] LABS: Potassium 4.2 mmol/L (3.5-5.1)
== END | disposition home or self-care (01) ==
LOC: LABPAT 12:39
PROVIDERS: ATTEND Internal Medicine Interventional Cardiology
DX: Z01.818 Encounter for other preprocedural examination (principal); R60.0 Localized edema
CPT/HCPCS: 36415; 80051; 82565; 84520; 85027

== ENCOUNTER 2020-04-05 09:15 | Day surgery (SDC) | payer MEDICARE ==
[2020-04-04 11:09] VITALS: BMI 30.1
[~2020-04-05 09:15] MED LIST changes: -ALPRAZolam 0.25 MG TAB PO PRN; -ASPIRIN 325 MG TAB PO STA
[2020-04-05] MEDS ORDERED: SODIUM CHLORIDE 0.9% 1,000 ML IV ONE (09:50)
[2020-04-05 09:53] LABS: Glucose,Whole Blood 136 mg/dL (75-99)
[2020-04-05] MEDS ORDERED: ASPIRIN 325 MG TAB PO STA (10:00)
[2020-04-05] MEDS ORDERED: ASPIRIN 325 MG TAB ONE (10:02)
[2020-04-05 10:06] LABS: INR 1.6 (<1.2); Prothrombin Time 15.6 sec (9.0-12.0)
[2020-04-05] MEDS: MIDAZOLAM 2 MG/2 ML VIAL IVP ONE ×2 (10:24→10:29)
[2020-04-05] MEDS ORDERED: LIDOCAINE 1% INJ 10MG/ML (20 ML MDV) SQ ONE ×2 (10:27→10:32)
[2020-04-05] MEDS: fentaNYL (PF) 50 MCG/ML 2 ML AMP IV ONE ×2 (10:31→10:46)
[2020-04-05] MEDS ORDERED: HEPARIN SODIUM 1,000 UN/ML (10ML VL) IV ONE (10:59)
[2020-04-05] MEDS ORDERED: MECLIZINE 25 MG TAB PO PRN (11:53)
[2020-04-05] MEDS ORDERED: LORazepam 0.5 MG TAB PO PRN (11:53)
[2020-04-05] MEDS ORDERED: ACETAMINOPHEN TAB 500 MG TAB PO PRN (11:53)
[2020-04-05] MEDS ORDERED: traMADol 50 MG TAB PO PRN (11:53)
[2020-04-05] MEDS ORDERED: SODIUM CHLORIDE 0.9% 1,000 ML in EMPTY BAG 1 BAG IV SCH (12:00)
[2020-04-05] MEDS ORDERED: CLOPIDOGREL 75 MG TAB PO ONE (12:05)
[2020-04-05] MEDS ORDERED: IOPAMIDOL-250 50ML BTL IV ONE (12:05)
[2020-04-05 12:32] LABS: Glucose,Whole Blood 133 mg/dL (75-99)
[2020-04-05] MEDS: GABAPENTIN 300 MG CAP PO SCH ×2 (16:31→20:52)
[2020-04-05 16:58] LABS: Glucose,Whole Blood 187 mg/dL (75-99)
[2020-04-05] MEDS: INSULIN ASPART (NovoLOG) 100 UNIT/ML VIAL SQ SCH ×2 (17:34→20:52)
[2020-04-05 19:40] LABS: Glucose,Whole Blood 147 mg/dL (75-99)
--- NOTE | 2020-04-05 20:42 | PCN ---
PROCEDURE NOTE DATE OF SERVICE: 04/05/2020 PERFORMING PHYSICIAN: Riccardo Swenson M.D. PROCEDURES PERFORMED: 1. Successful stenting of the right and left common iliac veins and external iliac veins using 16 x 19 mm Wallstent with excellent angiographic results. 2. Intravascular ultrasound (IVUS) of bilateral common iliac veins, external iliac veins, and common femoral veins as well as inferior vena cava. 3. Angiogram of the bilateral common iliac veins, external iliac veins, common femoral veins and inferior vena cava. INDICATION: This is a pleasant 75-year-old female patient who continues to struggle with bilateral lower extremity edema in spite of maximized medical treatment. APPROACH: Right and left common femoral veins. COMPLICATIONS: None. LEVEL OF SEDATION: Moderate, with sedation length of 86 minutes. PROCEDURE DESCRIPTION: After obtaining informed consent, the patient was brought to the cardiac cardiac catheterization technologist. The right and left common femoral veins were cannulated using micropuncture technique under ultrasound guidance. The micropuncture wires passed easily. Then I placed a 10- Sami sheath in the right and left common femoral veins. At that point anticoagulation was initiated using heparin. The patient was given a total of 8000 units of heparin IV. Subsequently I did advance an 0.035 Amplatz wire in both femoral veins all the way to the inferior vena cava. After that I did intravascular ultrasound (IVUS) of the inferior vena cava, bilateral common iliac veins, bilateral external iliac veins, as well as bilateral common femoral veins by advancing the IVUS catheter over the 0.035 wire on each side and doing manual pullback. Subsequently I decided to pursue an intervention on the right and left common iliac and external iliac veins. Predilatation was performed using a 12 x 40 mm balloon. I did predilatation of the common iliac vein and external iliac veins bilaterally. After that I did deploy both Wallstents simultaneously with deploying initially at the level of the inferior vena cava then deploying the mid portion of the stent, then the distal portion of the stent alternatively. The deployment was performed under fluoroscopic guidance. I deployed the stent also in a kissing technique, where the stents were kissing each other at the level of the inferior vena cava. Postdilatation was performed using the same 12 x 40 mm balloon. After that I did an angiogram as well as intravascular ultrasound, IVUS, which showed excellent angiographic results. The distal segment of the external iliac vein bilaterally was narrow, about 40% to 50%, which I decided to treat medically at this point and continue to follow up with the patient. INTRAVASCULAR ULTRASOUND (IVUS) FINDINGS: 1. The inferior vena cava. The reference area was 160 mm2 with the compressed area of 125 mm2 and area stenosis of 21%. 2. Right common iliac vein. The reference area was 180 mm2. The compressed area was 49 mm2 and the area stenosis was 73%. 3. Left common iliac vein. Reference area was 173 mm2 and the compressed area was 55 mm2 with area stenosis of 68%. 4. Right external iliac vein. The reference area was 132 mm2 and compressed area was 36 mm2 with an area stenosis of 72%. 5. External iliac vein. The reference area was 120 mm2 and the compressed area was 38 mm2 with an area stenosis of 68%. 6. Right common femoral vein. The reference area was 95 mm2 and the compressed area was 95 mm2 with area stenosis of 0%. 7. Left common femoral vein. The reference area was 94 mm2 and the compressed area was 94 mm2 with area stenosis of 0%. POST-PROCEDURE MANAGEMENT: 1. Dual anti-platelet therapy. 2. Consider also oral anticoagulation down the line. 3. Follow up with the patient. MMODL / IJN: [id number] /
[2020-04-05] MEDS: Empagliflozin [Jardiance] 25 MG PO SCH (20:50)
--- NOTE | 2020-04-05 20:53 | CT ---
EXAMINATION TYPE: CT brain kiley jama DATE OF EXAM: 04/05/2020 COMPARISON: HISTORY: Fall injury CT DLP: 1315.[address] of the brain was performed. The ventricles, basal cisterns and sulci overlying the cerebral convexities demonstrate mild enlargem ent. There is no evidence for intracranial hemorrhage or sulcal effacement. There is decreased attenuatio n about the periventricular white matter and deep white matter of both cerebral hemispheres, compatib le with chronic small vessel ischemia. No mass effects are seen. If symptoms persist consider MRI. Osseous calvarium is intact. IMPRESSION: 1. Age related atrophic and chronic small vessel ischemic change without acute intracranial process seen at this time. CT Cervical Spine: Unenhanced CT of the cervical spine was performed with bone and soft tissue window settings submitted . Coronal and sagittal reconstruction is obtained. There is normal alignment and prevertebral soft tissues. No evidence for acute cervical fracture . Scattered degenerative disc disease and spondylosis. Biapical scarring. IMPRESSION: 1. No evidence for acute fracture or subluxation of the cervical spine.
--- NOTE | 2020-04-05 22:29 | XR ---
EXAMINATION TYPE: XR knee complete bilateral DATE OF EXAM: 04/05/2020 COMPARISON: Left knee 09/07/2019 HISTORY: Bilateral knee pain TECHNIQUE: 3 views each knee FINDINGS: Knee joint spaces are fairly normal. I see no fracture nor dislocation. There is spurring o n the superior anterior patella bilaterally. There is no evidence of any significant joint fluid. The re is some calcification in the lateral meniscus of the left knee. IMPRESSION: No significant joint space narrowing. 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 No fracture.
[2020-04-06 04:22] VITALS: RESP 18
[2020-04-06 06:25] LABS: Glucose,Whole Blood 133 mg/dL (75-99)
[2020-04-06] MEDS ORDERED: LEVOTHYROXINE 100 MCG TAB PO SCH (06:30)
[2020-04-06] MEDS: INSULIN ASPART (NovoLOG) 100 UNIT/ML VIAL SQ SCH (06:35)
[2020-04-06] MEDS: PANTOPRAZOLE 40 MG TABLET PO SCH ×2 (06:40→10:10)
--- NOTE | 2020-04-06 08:06 | P.DS ---
Providers Date of admission: 04/05/2020 Attending physician: Riccardo Swenson Primary care physician: Herberth [facility] Hospital Course: This is a 75-year-old female who underwent successful stenting of the bilateral common iliac and external iliac veins with an excellent results by the end. Patient was seen this morning. She is asymptomatic from a cardiovascular standpoint overview. Both groins are soft and nontender and without any bruises. She is going to be discharged on dual antiplatelet therapy as well as a statin and I will follow-up with the patient next week in the office Plan - Discharge Summary Discharge Rx Participant: Yes New Discharge Prescriptions: New Clopidogrel Bisulfate [Plavix] 75 mg PO DAILY #90 tab Continue LORazepam [Ativan] 0.5 mg PO TID PRN PRN Reason: Anxiety Naproxen 500 mg PO DAILY Simvastatin [Zocor] 20 mg PO DAILY Meclizine [Antivert] 25 mg PO TID PRN PRN Reason: Vertigo Levothyroxine Sodium [Synthroid] 100 mcg PO DAILY Furosemide [Lasix] 40 mg PO DAILY Omeprazole [PriLOSEC] 20 mg PO DAILY traMADol HCL [Ultram] 50 mg PO DAILY PRN PRN Reason: Pain Acetaminophen [Tylenol] 500 mg PO Q4-6H PRN PRN Reason: Pain Or Fever > 100.5 Citalopram Hydrobromide [Citalopram HBr] 40 mg PO DAILY Potassium Chloride ER [K-Dur 10] 10 meq PO DAILY Ferrous Sulfate [Iron (65 MG Elemental)] 325 mg PO DAILY Gabapentin [Neurontin] 300 mg PO TID Empagliflozin [Jardiance] 25 mg PO BID amLODIPine [Norvasc] 5 mg PO DAILY Discontinued Warfarin [Coumadin] 2.5 mg PO DAILY Discharge Medication List LORazepam [Ativan] 0.5 mg PO TID PRN 10/15/14 [History] Naproxen 500 mg PO DAILY 10/15/14 [History] Simvastatin [Zocor] 20 mg PO DAILY 10/15/14 [History] Meclizine [Antivert] 25 mg PO TID PRN 09/18/15 [History] Furosemide [Lasix] 40 mg PO DAILY 05/30/16 [History] Levothyroxine Sodium [Synthroid] 100 mcg PO DAILY 05/30/16 [History] Acetaminophen [Tylenol] 500 mg PO Q4-6H PRN 05/22/18 [History] Omeprazole [PriLOSEC] 20 mg PO DAILY 05/22/18 [History] traMADol HCL [Ultram] 50 mg PO DAILY PRN 05/22/18 [History] Citalopram Hydrobromide [Citalopram HBr] 40 mg PO DAILY 09/07/19 [History] Ferrous Sulfate [Iron (65 MG Elemental)] 325 mg PO DAILY 09/07/19 [History] Potassium Chloride ER [K-Dur 10] 10 meq PO DAILY 09/07/19 [History] Empagliflozin [Jardiance] 25 mg PO BID 04/04/20 [History] Gabapentin [Neurontin] 300 mg PO TID 04/04/20 [History] amLODIPine [Norvasc] 5 mg PO DAILY 04/05/20 [History] Clopidogrel Bisulfate [Plavix] 75 mg PO DAILY #90 tab 04/06/20 [Rx] Follow up Appointment(s)/Referral(s): Riccardo Swenson MD [STAFF PHYSICIAN] - 04/14/20 4:45 pm Patient Instructions/Handouts: Peripheral Vascular Stent Placement (DC)
[2020-04-06] MEDS ORDERED: FERROUS SULFATE 325 MG TAB PO SCH (09:00)
[2020-04-06] MEDS ORDERED: amLODIPine 5 MG TAB PO SCH (09:00)
[2020-04-06] MEDS ORDERED: NAPROXEN 250 MG TAB PO SCH (09:00)
[2020-04-06] MEDS ORDERED: CITALOPRAM HYDROBROMIDE 20 MG TAB PO SCH (09:00)
[2020-04-06] MEDS ORDERED: FUROSEMIDE 40 MG TAB PO SCH (09:00)
[2020-04-06] MEDS ORDERED: POTASSIUM CHLORIDE ER 10 MEQ TAB.ER.PRT PO SCH (09:00)
[2020-04-06] MEDS ORDERED: ATORVASTATIN 10 MG TAB PO SCH (09:00)
[2020-04-06] MEDS: Empagliflozin [Jardiance] 25 MG PO SCH (10:10)
[2020-04-06] MEDS: GABAPENTIN 300 MG CAP PO SCH (10:10)
[2020-04-06 11:14] VITALS: BP 132/61; PULSE 80; TEMP 98.2
--- NOTE | 2020-04-06 12:00 | IR ---
Fluoroscopy HISTORY: Pain 17 minutes fluoroscopy time supplied to the referring clinician. 147 intraoperative C-arm images doc ument the procedure. See dictated report from cardiology.
== END 2020-04-06 13:18 | disposition home or self-care (01) ==
LOC: CATHCVL 09:15 → 3SCARD 12:31 → CATHCVL 14:10 → 3SCARD 14:10 → CATHCVL 04-06 13:18
PROVIDERS: ATTEND Internal Medicine Interventional Cardiology
DX: I87.1 Compression of vein (principal); I82.411 Acute embolism and thrombosis of right femoral vein; I12.9 Hypertensive chronic kidney disease with stage 1 through stage 4 chronic kidney disease, or unspecified chronic kidney disease; E11.22 Type 2 diabetes mellitus with diabetic chronic kidney disease; N18.3 Chronic kidney disease, stage 3 (moderate); I35.1 Nonrheumatic aortic (valve) insufficiency; E78.5 Hyperlipidemia, unspecified; Z82.49 Family history of ischemic heart disease and other diseases of the circulatory system; Z79.01 Long term (current) use of anticoagulants; Z79.02 Long term (current) use of antithrombotics/antiplatelets; Z79.84 Long term (current) use of oral hypoglycemic drugs; Z79.890 Hormone replacement therapy; Z79.899 Other long term (current) drug therapy; Z88.0 Allergy status to penicillin
CPT/HCPCS: 37238; 37239; 85347; 37252; 37253; 85610; 73562; 72125; 70450; C1769 ×4; C1725; C1753; C1876; C1894; J2250; J2001; J3010; J1644; Q9966; 37221

== ENCOUNTER 2020-04-10 19:50 | Emergency (ER) | payer MEDICARE ==
[2020-04-10 20:04] VITALS: TEMP 98.8
[2020-04-10] MEDS ORDERED: MORPHINE SULFATE 4 MG/ML SYRINGE IVP STA (20:59)
[2020-04-10 21:32] LABS: Basophils # (A) 0.1 k/uL (0-0.2); Basophils % (A) 1 %; Eosinophils # (A) 0.5 k/uL (0-0.7); Eosinophils % (A) 5 %; HCT 25.3 % (34.0-46.0); Lymphocytes # (A) 1.3 k/uL (1.0-4.8); Lymphocytes % (A) 14 %; MCH 32.5 pg (25.0-35.0); MCHC 34.4 g/dL (31.0-37.0); MCV 94.7 fL (80.0-100.0); Mean Platelet Volume 6.6; Monocytes # (A) 0.5 k/uL (0-1.0); Monocytes % (A) 5 %; Neutrophils # (A) 7.3 k/uL (1.3-7.7); Neutrophils % (A) 75 %; Platelet Count 324 k/uL (150-450); RBC 2.67 m/uL (3.80-5.40); WBC 9.8 k/uL (3.8-10.6)
[2020-04-10 21:36] LABS: Calcium 9.6 mg/dL (8.4-10.2); Potassium 4.2 mmol/L (3.5-5.1); Total Bilirubin 0.8 mg/dL (0.2-1.3); Total Protein 6.7 g/dL (6.3-8.2)
--- NOTE | 2020-04-10 21:36 | US ---
EXAMINATION TYPE: US lower ext pseudo artery LT DATE OF EXAM: 04/10/2020 COMPARISON: NONE CLINICAL HISTORY: leg pain, s/p stent. Left groin approach for stent placement 5 days ago, increasing left groin pain EXAM PERFORMED: Grayscale and color Doppler duplex imaging performed of the groin, post cardiac ade ter to assess for pseudoaneurysm. SIDE PERFORMED: Left Color and Waveform Doppler performed to assess for the presence of pseudoaneurysm; Is there ultrasound evidence of a pseudoaneurysm: no Is there evidence of AV shunting: no Is there a fluid collection present: no IMPRESSION: There is no evidence of pseudoaneurysm in the left groin. There is normal triphasic arterial waveform in the left femoral artery. There is patency of the left femoral vein and no evidence of thrombus. T here is no evidence of a hematoma.
[2020-04-10 21:43] LABS: HGB 8.7 gm/dL (11.4-16.0)
[2020-04-10 21:53] LABS: INR 0.9 (<1.2); Partial Thromboplastin Time 22.1 sec (22.0-30.0); Prothrombin Time 9.5 sec (9.0-12.0)
[2020-04-10 22:44] VITALS: RESP 18
[2020-04-10] MEDS ORDERED: ACET/COD 300 MG/30 MG STARTER PACK 6 TAB BTL PO STA (23:16)
--- NOTE | 2020-04-10 23:25 | ED ---
Extremity Problem HPI - General Chief complaint: Extremity Problem,Nontraumatic Stated complaint: Pain leg,post op Time Seen by Provider: 04/10/20 20:07 Source: patient Mode of arrival: ambulatory Limitations: no limitations - History of Present Illness Initial comments: Patient is a 75-year-old female with past medical history of bilateral lower extremity edema with recent stent placement in the bilateral common iliacs and external iliacs and Friday by Dr. Swenson who presents to the emergency room with reported sudden onset of pain in the patient's left groin. She states that she has had some bruising and swelling around the area of the stent placement on the left since the procedure. Pain has been sporadic. Reports that after using the restroom today and attempting to ambulate she had significant pain in left groin. States she was unable to lay on the extremity and she felt very weak. She did not take anything for the pain. Denies discoloration to the extremity. Pain extends all the way down to the toes. Denies change in sensation or strength. No fevers or chills. Denies any nausea or vomiting. No abdominal pain. No other alleviating, precipitating or modifying factors - Related Data Home Medications Medication Instructions Recorded Confirmed LORazepam [Ativan] 0.5 mg PO TID PRN 10/15/14 04/10/20 Naproxen 500 mg PO DAILY 10/15/14 04/10/20 Simvastatin [Zocor] 20 mg PO DAILY 10/15/14 04/10/20 Meclizine [Antivert] 25 mg PO TID PRN 09/18/15 04/10/20 Furosemide [Lasix] 40 mg PO DAILY 05/30/16 04/10/20 Levothyroxine Sodium [Synthroid] 100 mcg PO DAILY 05/30/16 04/10/20 Omeprazole [PriLOSEC] 20 mg PO DAILY 05/22/18 04/10/20 traMADol HCL [Ultram] 50 mg PO DAILY 05/22/18 04/10/20 Citalopram Hydrobromide 40 mg PO DAILY 09/07/19 04/10/20 [Citalopram HBr] Potassium Chloride ER [K-Dur 10] 10 meq PO DAILY 09/07/19 04/10/20 Empagliflozin [Jardiance] 25 mg PO BID 04/04/20 04/10/20 amLODIPine [Norvasc] 5 mg PO DAILY 04/05/20 04/10/20 Albuterol Sulfate [Ventolin HFA] 1 - 2 puff INHALATION RT-QID PRN 04/10/20 04/10/20 Ferrous Gluconate 324 mg PO DAILY 04/10/20 04/10/20 Gabapentin [Neurontin] 300 mg PO TID 04/10/20 04/10/20 Previous Rx's Medication Instructions Recorded Clopidogrel Bisulfate [Plavix] 75 mg PO DAILY #90 tab 04/06/20 Allergies Allergy/AdvReac Type Severity Reaction Status Date / Time Penicillins Allergy Rash/Hives Verified 04/10/20 21:56 Review of Systems ROS Statement: Those systems with pertinent positive or pertinent negative responses have been documented in the HPI. ROS Other: All systems not noted in ROS Statement are negative. Past Medical History Past Medical History: Cancer, Diabetes Mellitus, Deep Vein Thrombosis (DVT), Fibromyalgia, GERD/Reflux, Hyperlipidemia, Osteoarthritis (OA), Renal Disease, Thyroid Disorder Additional Past Medical History / Comment(s): uterine ca 50 years ago sx only.past falls, past c2 fx no sx but wore a brace , glac[place] eyes, uti's,. dizziness at times and occ when sitting will. blank out for few min, neuropathy feet,legs,and hands. stage 3 kidney failure History of Any Multi-Drug Resistant Organisms: None Reported Past Surgical History: Adenoidectomy, Back Surgery, Bariatric Surgery, Cholecystectomy, Hysterectomy, Tonsillectomy Additional Past Surgical History / Comment(s): loop monitor implanted 03-30-18 Past Anesthesia/Blood Transfusion Reactions: No Reported Reaction Type of Cardiac Device: Loop Device Placement Date:: 03/30/18 Past Psychological History: Anxiety, Depression Smoking Status: Never smoker Past Alcohol Use History: None Reported Past Drug Use History: None Reported - Past Family History Brother(s) Family Medical History: Cancer Mother Family Medical History: Dementia Father Family Medical History: Myocardial Infarction ([place]) General Exam Limitations: no limitations Course Vital Signs 04/10/20 04/10/20 04/10/20 20:00 22:43 23:24 Temperature 98.8 F Pulse Rate 95 78 94 Respiratory 16 18 18 Rate Blood Pressure 129/59 119/51 115/58 O2 Sat by Pulse 97 94 L 94 L Oximetry Medical Decision Making - Medical Decision Making Upon arrival patient placed into room 3. A thorough history and physical exam was performed. Patient does have bounding pulses in the bilateral lower extremity's. Extremities are warm to the touch. Patient was given 4 morphine for pain. She does have an ultrasound performed of her left groin. Laboratory says were conducted. Laboratory studies demonstrate a hemoglobin of 8.7. Lactic acid 1.3. Ultrasound demonstrates no signs of pseudoaneurysm. Normal triphasic arterial waveforms in the left femoral artery. Patency the left femoral vein no evidence of thrombus. I did call discuss the case with Dr. Bermudez. Patient feels much better and is able to eat. On the extremity. She wants to go home at this time. She will be given a Tylenol started 3 pack. She is to call Dr. Swenson in the morning and notify him of her pain. Return to the emergency room. New or worsening symptoms per patient was in agreement to plan she was discharged home in stable condition - Lab Data Result diagrams: 04/10/20 21:15 04/10/20 21:15 Lab Results 04/10/20 04/10/20 04/10/20 Range/Units 21:15 21:15 21:15 WBC 9.8 (3.8-10.6) k/uL RBC 2.67 L (3.80-5.40) m/uL Hgb 8.7 L D (11.4-16.0) gm/dL Hct 25.3 L (34.0-46.0) % MCV 94.7 (80.0-100.0) fL MCH 32.5 (25.0-35.0) pg MCHC 34.4 (31.0-37.0) g/dL RDW 14.0 (11.5-15.5) % Plt Count 324 (150-450) k/uL Neutrophils % 75 % Lymphocytes % 14 % Monocytes % 5 % Eosinophils % 5 % Basophils % 1 % Neutrophils # 7.3 (1.3-7.7) k/uL Lymphocytes # 1.3 (1.0-4.8) k/uL Monocytes # 0.5 (0-1.0) k/uL Eosinophils # 0.5 (0-0.7) k/uL Basophils # 0.1 (0-0.2) k/uL PT 9.5 (9.0-12.0) sec INR 0.9 (<1.2) APTT 22.1 (22.0-30.0) sec Sodium 137 (137-145) mmol/L Potassium 4.2 (3.5-5.1) mmol/L Chloride 100 (98-107) mmol/L Carbon Dioxide 30 (22-30) mmol/L Anion Gap 7 mmol/L BUN 29 H (7-17) mg/dL Creatinine 1.37 H (0.52-1.04) mg/dL Est GFR (CKD-EPI)AfAm 44 (>60 ml/min/1.73 sqM) Est GFR (CKD-EPI)NonAf 38 (>60 ml/min/1.73 sqM) Glucose 148 H (74-99) mg/dL Plasma Lactic Acid Yuriy (0.7-2.0) mmol/L Calcium 9.6 (8.4-10.2) mg/dL Total Bilirubin 0.8 (0.2-1.3) mg/dL AST 23 (14-36) U/L ALT 10 (4-34) U/L Alkaline Phosphatase 79 (38-126) U/L Total Protein 6.7 (6.3-8.2) g/dL Albumin 4.0 (3.5-5.0) g/dL 04/10/20 Range/Units 21:15 WBC (3.8-10.6) k/uL RBC (3.80-5.40) m/uL Hgb (11.4-16.0) gm/dL Hct (34.0-46.0) % MCV (80.0-100.0) fL MCH (25.0-35.0) pg MCHC (31.0-37.0) g/dL RDW (11.5-15.5) % Plt Count (150-450) k/uL Neutrophils % % Lymphocytes % % Monocytes % % Eosinophils % % Basophils % % Neutrophils # (1.3-7.7) k/uL Lymphocytes # (1.0-4.8) k/uL Monocytes # (0-1.0) k/uL Eosinophils # (0-0.7) k/uL Basophils # (0-0.2) k/uL PT (9.0-12.0) sec INR (<1.2) APTT (22.0-30.0) sec Sodium (137-145) mmol/L Potassium (3.5-5.1) mmol/L Chloride (98-107) mmol/L Carbon Dioxide (22-30) mmol/L Anion Gap mmol/L BUN (7-17) mg/dL Creatinine (0.52-1.04) mg/dL Est GFR (CKD-EPI)AfAm (>60 ml/min/1.73 sqM) Est GFR (CKD-EPI)NonAf (>60 ml/min/1.73 sqM) Glucose (74-99) mg/dL Plasma Lactic Acid Yuriy 1.3 (0.7-2.0) mmol/L Calcium (8.4-10.2) mg/dL Total Bilirubin (0.2-1.3) mg/dL AST (14-36) U/L ALT (4-34) U/L Alkaline Phosphatase (38-126) U/L Total Protein (6.3-8.2) g/dL Albumin (3.5-5.0) g/dL Disposition Clinical Impression: Leg pain, left Disposition: HOME SELF-CARE Condition: Stable Instructions (If sedation given, give patient instructions): Leg Pain (ED) Additional Instructions: Please call Dr. Swenson tomorrow to notify him that you were in the emergency room. Return to the emergency department for any new or worsening symptoms Is patient prescribed a controlled substance at d/c from ED?: No Referrals: Herberth Roe DO [Primary Care Provider] - 1-2 days Riccardo Swenson MD [STAFF PHYSICIAN] - 1-2 days Time of Disposition: 23:24
[2020-04-10 23:26] VITALS: BP 115/58; PULSE 94
== END 2020-04-10 23:28 | disposition home or self-care (01) ==
LOC: EC 19:50
DX: M79.605 Pain in left leg (principal); E78.5 Hyperlipidemia, unspecified; E07.9 Disorder of thyroid, unspecified; K21.9 Gastro-esophageal reflux disease without esophagitis; F41.9 Anxiety disorder, unspecified; F32.9 Major depressive disorder, single episode, unspecified; E11.40 Type 2 diabetes mellitus with diabetic neuropathy, unspecified; Z79.890 Hormone replacement therapy; Z79.899 Other long term (current) drug therapy; Z79.1 Long term (current) use of non-steroidal anti-inflammatories (NSAID); Z88.0 Allergy status to penicillin; Z98.84 Bariatric surgery status; Z86.718 Personal history of other venous thrombosis and embolism; Z85.42 Personal history of malignant neoplasm of other parts of uterus
CPT/HCPCS: 36415; 80053; 83605; 85025; 85610; 85730; 93975; 93926; 99284; 96374; J2270

== ENCOUNTER 2020-04-12 10:44 | Inpatient (IN) | payer MEDICARE ==
--- NOTE | 2020-04-12 11:23 | ED ---
General Adult HPI - General Chief complaint: Recheck/Abnormal Lab/Rx Stated complaint: recheck labs Time Seen by Provider: 04/12/20 10:52 Source: patient, family, RN notes reviewed, old records reviewed Mode of arrival: wheelchair Limitations: no limitations - History of Present Illness Initial comments: 75-year-old female presents for evaluation of abnormal outpatient labs, down trending hemoglobin and abdominal distention. Patient was sent in by her primary care physician. She was seen in the emergency department 2 days ago with complaint of groin pain status post venous stenting by cardiology. She had hemoglobin of 8.7 at that time and was evaluated by primary care physician who noted this to be down trending. Patient denies rectal bleeding or melena. She does report abdominal distention which she states is chronic and states she typically has a bowel movement only with magnesium citrate approximately every 2 weeks. She denies chest pain. She's been compliant with her medications. No fever. No vomiting. - Related Data Home Medications Medication Instructions Recorded Confirmed LORazepam [Ativan] 0.5 mg PO TID PRN 10/15/14 04/12/20 Naproxen 500 mg PO DAILY 10/15/14 04/12/20 Simvastatin [Zocor] 20 mg PO DAILY 10/15/14 04/12/20 Meclizine [Antivert] 25 mg PO TID PRN 09/18/15 04/12/20 Furosemide [Lasix] 40 mg PO DAILY 05/30/16 04/12/20 Levothyroxine Sodium [Synthroid] 100 mcg PO DAILY 05/30/16 04/12/20 Omeprazole [PriLOSEC] 20 mg PO DAILY 05/22/18 04/12/20 traMADol HCL [Ultram] 50 mg PO DAILY 05/22/18 04/12/20 Citalopram Hydrobromide 40 mg PO DAILY 09/07/19 04/12/20 [Citalopram HBr] Potassium Chloride ER [K-Dur 10] 10 meq PO DAILY 09/07/19 04/12/20 Empagliflozin [Jardiance] 25 mg PO BID 04/04/20 04/12/20 amLODIPine [Norvasc] 5 mg PO DAILY 04/05/20 04/12/20 Albuterol Sulfate [Ventolin HFA] 1 - 2 puff INHALATION RT-QID PRN 04/10/20 04/12/20 Ferrous Gluconate 324 mg PO DAILY 04/10/20 04/12/20 Gabapentin [Neurontin] 300 mg PO TID 04/10/20 04/12/20 Previous Rx's Medication Instructions Recorded Clopidogrel Bisulfate [Plavix] 75 mg PO DAILY #90 tab 04/06/20 Allergies Allergy/AdvReac Type Severity Reaction Status Date / Time Penicillins Allergy Rash/Hives Verified 04/12/20 12:17 Review of Systems ROS Statement: Those systems with pertinent positive or pertinent negative responses have been documented in the HPI. ROS Other: All systems not noted in ROS Statement are negative. Past Medical History Past Medical History: Cancer, Diabetes Mellitus, Deep Vein Thrombosis (DVT), Fibromyalgia, GERD/Reflux, Hyperlipidemia, Osteoarthritis (OA), Renal Disease, Thyroid Disorder Additional Past Medical History / Comment(s): uterine ca 50 years ago sx only.past falls, past c2 fx no sx but wore a brace , [place] eyes, uti's,. dizziness at times and occ when sitting will. blank out for few min, neuropathy feet,legs,and hands. stage 3 kidney failure History of Any Multi-Drug Resistant Organisms: None Reported Past Surgical History: Adenoidectomy, Back Surgery, Bariatric Surgery, Cholecys tectomy, Hysterectomy, Tonsillectomy Additional Past Surgical History / Comment(s): loop monitor implanted 03-30-18 Past Anesthesia/Blood Transfusion Reactions: No Reported Reaction Type of Cardiac Device: Loop Device Placement Date:: 03/30/18 Past Psychological History: Anxiety, Depression Smoking Status: Never smoker Past Alcohol Use History: None Reported Past Drug Use History: None Reported - Past Family History Brother(s) Family Medical History: Cancer Mother Family Medical History: Dementia Father Family Medical History: Myocardial Infarction ([place]) General Exam Limitations: no limitations General appearance: alert, in no apparent distress Head exam: Present: atraumatic, normocephalic Eye exam: Present: normal appearance, PERRL ENT exam: Present: normal exam Neck exam: Present: normal inspection. Absent: tenderness, meningismus Respiratory exam: Present: normal lung sounds bilaterally. Absent: respiratory distress, wheezes Cardiovascular Exam: Present: regular rate, normal rhythm GI/Abdominal exam: Present: soft, distended. Absent: tenderness, guarding, rebound Extremities exam: Present: pedal edema, other (Left groin is ecchymotic with hematoma in the medial aspect of the left thigh, no pulsatile mass.) Neurological exam: Present: alert, oriented X3, CN II-XII intact. Absent: motor sensory deficit Psychiatric exam: Present: normal affect, normal mood Skin exam: Present: pallor, other (Ecchymosis in the left groin. With hematoma.) Course Vital Signs 04/12/20 10:46 Temperature 98.3 F Pulse Rate 84 Respiratory 16 Rate Blood Pressure 133/64 O2 Sat by Pulse 99 Oximetry Medical Decision Making - Medical Decision Making 75-year-old female with recent peripheral vascular procedure, stenting of the iliac veins. Patient has some swelling in the left groin, no pulsatile mass, there is ecchymosis consistent with normal postoperative changes. Patient did have some abdominal distention, no tenderness, no rebound or guarding. She states she has a bowel movement every 2 weeks and this is normal for her. CT is performed in the emergency department which shows the newly placed stents and there is some soft tissue swelling in the groin consistent with hematoma. Her hemoglobin today is 8.5 it was 8.72 days ago. I did discuss case with Dr. Swenson with familiar with the patient, she will be admitted for serial hemoglobin monitoring this has been ordered every 6 hours. Patient will be admitted to internal medicine with Dr. Swenson on consult. - Lab Data Result diagrams: 04/12/20 11:14 04/12/20 11:14 Lab Results 04/12/20 04/12/20 04/12/20 Range/Units 11:14 11:14 11:14 WBC 11.3 H (3.8-10.6) k/uL RBC 2.60 L (3.80-5.40) m/uL Hgb 8.5 L (11.4-16.0) gm/dL Hct 25.8 L (34.0-46.0) % MCV 99.5 (80.0-100.0) fL MCH 32.7 (25.0-35.0) pg MCHC 32.9 (31.0-37.0) g/dL RDW 14.2 (11.5-15.5) % Plt Count 328 (150-450) k/uL Neutrophils % 76 % Lymphocytes % 13 % Monocytes % 5 % Eosinophils % 5 % Basophils % 0 % Neutrophils # 8.6 H (1.3-7.7) k/uL Lymphocytes # 1.5 (1.0-4.8) k/uL Monocytes # 0.5 (0-1.0) k/uL Eosinophils # 0.5 (0-0.7) k/uL Basophils # 0.0 (0-0.2) k/uL Macrocytosis Slight PT 9.6 (9.0-12.0) sec INR 0.9 (<1.2) APTT 22.9 (22.0-30.0) sec Sodium 136 L (137-145) mmol/L Potassium 3.9 (3.5-5.1) mmol/L Chloride 99 (98-107) mmol/L Carbon Dioxide 28 (22-30) mmol/L Anion Gap 9 mmol/L BUN 38 H (7-17) mg/dL Creatinine 1.56 H (0.52-1.04) mg/dL Est GFR (CKD-EPI)AfAm 38 (>60 ml/min/1.73 sqM) Est GFR (CKD-EPI)NonAf 33 (>60 ml/min/1.73 sqM) Glucose 125 H (74-99) mg/dL Calcium 9.4 (8.4-10.2) mg/dL Total Bilirubin 0.9 (0.2-1.3) mg/dL AST 22 (14-36) U/L ALT 10 (4-34) U/L Alkaline Phosphatase 83 (38-126) U/L Total Protein 6.8 (6.3-8.2) g/dL Albumin 4.0 (3.5-5.0) g/dL Blood Type Blood Type Recheck Bld Type Recheck Status Antibody Screen Spec Expiration Date 04/12/20 Range/Units 11:14 WBC (3.8-10.6) k/uL RBC (3.80-5.40) m/uL Hgb (11.4-16.0) gm/dL Hct (34.0-46.0) % MCV (80.0-100.0) fL MCH (25.0-35.0) pg MCHC (31.0-37.0) g/dL RDW (11.5-15.5) % Plt Count (150-450) k/uL Neutrophils % % Lymphocytes % % Monocytes % % Eosinophils % % Basophils % % Neutrophils # (1.3-7.7) k/uL Lymphocytes # (1.0-4.8) k/uL Monocytes # (0-1.0) k/uL Eosinophils # (0-0.7) k/uL Basophils # (0-0.2) k/uL Macrocytosis PT (9.0-12.0) sec INR (<1.2) APTT (22.0-30.0) sec Sodium (137-145) mmol/L Potassium (3.5-5.1) mmol/L Chloride (98-107) mmol/L Carbon Dioxide (22-30) mmol/L Anion Gap mmol/L BUN (7-17) mg/dL Creatinine (0.52-1.04) mg/dL Est GFR (CKD-EPI)AfAm (>60 ml/min/1.73 sqM) Est GFR (CKD-EPI)NonAf (>60 ml/min/1.73 sqM) Glucose (74-99) mg/dL Calcium (8.4-10.2) mg/dL Total Bilirubin (0.2-1.3) mg/dL AST (14-36) U/L ALT (4-34) U/L Alkaline Phosphatase (38-126) U/L Total Protein (6.3-8.2) g/dL Albumin (3.5-5.0) g/dL Blood Type O Positive Blood Type Recheck No Previous Record Bld Type Recheck Status CABO Indicated Antibody Screen NEGATIVE Spec Expiration Date 04/15/2020 - 2313 Disposition Clinical Impression: Anemia, Hematoma of thigh Disposition: ADMITTED IP TO THIS [facility] Condition: Stable Is patient prescribed a controlled substance at d/c from ED?: No Referrals: Herberth Roe DO [Primary Care Provider] - 1-2 days Decision to Admit Reason: Admit from EC Decision Date: 04/12/20 Decision Time: 14:13
[2020-04-12 11:48] LABS: INR 0.9 (<1.2); Partial Thromboplastin Time 22.9 sec (22.0-30.0); Prothrombin Time 9.6 sec (9.0-12.0)
[2020-04-12 11:52] LABS: Calcium 9.4 mg/dL (8.4-10.2); Potassium 3.9 mmol/L (3.5-5.1); Total Bilirubin 0.9 mg/dL (0.2-1.3); Total Protein 6.8 g/dL (6.3-8.2)
[2020-04-12] MEDS ORDERED: SODIUM CHLORIDE 0.9% 500 ML 500 ML IV ONE (11:53)
[2020-04-12 11:54] LABS: Basophils % (A) 0 %; Eosinophils # (A) 0.5 k/uL (0-0.7); Eosinophils % (A) 5 %; HCT 25.8 % (34.0-46.0); HGB 8.5 gm/dL (11.4-16.0); Lymphocytes # (A) 1.5 k/uL (1.0-4.8); Lymphocytes % (A) 13 %; MCH 32.7 pg (25.0-35.0); MCHC 32.9 g/dL (31.0-37.0); MCV 99.5 fL (80.0-100.0); Macrocytosis Slight; Mean Platelet Volume 6.8; Monocytes # (A) 0.5 k/uL (0-1.0); Monocytes % (A) 5 %; Neutrophils # (A) 8.6 k/uL (1.3-7.7); Neutrophils % (A) 76 %; Platelet Count 328 k/uL (150-450); RDW 14.2 % (11.5-15.5); WBC 11.3 k/uL (3.8-10.6)
--- NOTE | 2020-04-12 13:31 | CT ---
EXAMINATION TYPE: CT abdomen pelvis wo con DATE OF EXAM: 04/12/2020 COMPARISON: 03/20/2016 HISTORY: Low Hgb, recent stenting CT DLP: 540.2 mGycm Automated exposure control for dose reduction was used. TECHNIQUE: Helical acquisition of images was performed from the lung bases through the pelvis. FINDINGS: LUNG BASES: Subsegmental changes involving the lung bases greater on the left. There is coronary aidan ry calcification. Small hiatal hernia noted. LIVER/GB: No significant abnormality is appreciated. PANCREAS: There is diffuse atrophy of the pancreas. SPLEEN: No significant abnormality is seen. ADRENALS: No significant abnormality is seen. KIDNEYS: No significant abnormality is seen. URINARY BLADDER: No significant abnormality is seen. ADENOPATHY: None visualized. OSSEOUS STRUCTURES: Multilevel degenerative disc disease noted. Postsurgical change lower lumbar spi ne. BOWEL: Bowel gas pattern nonspecific. Postsurgical changes are seen. No evidence of obstruction. Ret ained fecal debris correlate for constipation.. OTHER: Small fat-containing periumbilical hernia. 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 No abnormal attenuation surrounding the aorta or fluid collection seen. Small fat-containing periumbilical hernia. There is soft tissue fullness and subcutaneous edema invo lving the medial upper thigh musculature best noted on axial image 130 suspicious for a intramuscular or soft tissue hematoma. There also is subcutaneous edema extending into the left groin and left mallory in musculature. Correlate clinically IMPRESSION: 1. Vascular stents are seen within the inferior vena cava. There is soft tissue fullness and subcutan eous edema involving the medial upper thigh musculature best noted on axial image 130 suspicious for a intramuscular or soft tissue hematoma. There also is subcutaneous edema extending into the left mallory in and left groin musculature. Correlate clinically and correlate with hemoglobin and hematocrit for active hemorrhage. 2. Pancreatic atrophy. 3. Left basilar infiltrate 4. small hiatal hernia. 5. Postsurgical changes
[2020-04-12] MEDS ORDERED: NALOXONE 0.4 MG/ML 1 ML VIAL IV PRN (14:08)
[2020-04-12] MEDS: ACETAMINOPHEN TAB 325 MG TAB PO PRN ×2 (16:07→22:38)
[2020-04-12 17:57] LABS: Glucose,Whole Blood 151 mg/dL (75-99)
[2020-04-12] MEDS ORDERED: ALBUTEROL NEBULIZED 2.5 MG/3 ML INHALATION PRN (18:17)
[2020-04-12] MEDS ORDERED: MECLIZINE 25 MG TAB PO PRN (18:17)
[2020-04-12] MEDS ORDERED: LORazepam 0.5 MG TAB PO PRN (18:17)
[2020-04-12 18:21] LABS: Basophils # (A) 0.1 k/uL (0-0.2); Basophils % (A) 1 %; Eosinophils # (A) 0.6 k/uL (0-0.7); Eosinophils % (A) 6 %; HCT 26.1 % (34.0-46.0); HGB 8.8 gm/dL (11.4-16.0); Lymphocytes # (A) 1.8 k/uL (1.0-4.8); Lymphocytes % (A) 16 %; MCH 33.6 pg (25.0-35.0); MCHC 33.6 g/dL (31.0-37.0); MCV 99.9 fL (80.0-100.0); Macrocytosis Slight; Mean Platelet Volume 6.5; Monocytes # (A) 0.5 k/uL (0-1.0); Monocytes % (A) 5 %; Neutrophils # (A) 7.8 k/uL (1.3-7.7); Neutrophils % (A) 72 %; Platelet Count 319 k/uL (150-450); RBC 2.61 m/uL (3.80-5.40); RDW 14.1 % (11.5-15.5); WBC 10.9 k/uL (3.8-10.6)
--- NOTE | 2020-04-12 18:29 | P.HPIM ---
History of Present Illness H&P Date: 04/12/20 Chief Complaint: Acute blood loss anemia, severe hematoma of the left thigh, acute kidney in 75-year-old female one of Dr. Roe patient who had procedure with Dr. Swenson for angioplasty and stent of the femoral-popliteal artery in April 05 developed to have significant swelling and edema with worsening hematoma over the last few days. Patient apparently was seen Dr. Roe and had blood test shows significant anemia with significant drop in hemoglobin compared to previous test. Patient was instructed to come to the hospital where was seen and evaluated had significant hematoma and large bruise on left side with significant edema with worsening pain and discomfort has been having trouble with ambulating and walking. Patient also found to be in acute kidney injury with chronic kidney disease. Patient declined any acute gastrointestinal bleed no hematuria no other bleed. She was started on IV hydration time and cross we'll consult Dr. Dolan for follow-up on her angiogram site patient be hospitalized. Review of Systems CONSTITUTIONAL: Well-developed no acute respiratory distress. EYES: No icterus sclerae, no conjunctivitis. EARS, NOSE, MOUTH, THROAT, and FACE: No sore throat, lymphadenopathy, carotid bruits or deformity. RESPIRATORY: Mild shortness of breath no cough wheezes. CARDIOVASCULAR: Positive PND or tender palpitation or angina. GASTROINTESTINAL: No Abd pain, Nausea or vomiting, no Diarrhea or constipation, No GI Bleed, no distention or masses. GENITOURINARY: Negative for Hematuria or UTI, no kidney stones. INTEGUMENT/BREAST: Significant soft tissue swelling specially in the thigh and the groin area worsening in the left on the right side. HEMATOLOGIC/LYMPHATIC: Negative for bleed or purpura. MUSCULOSKELTAL: Negative for Myalgia or arthralgia. NEURLOGICAL: No LOC, Sz or syncope, blurred vision dizziness or abnormality.. BEHAVIORAL/PSYCH: Negative. ENDOCRINE: Negative. Social history: Patient does not smoke [place] and abuse of illicit drug use she is retired single and lives alone. Family history: Father dying at age 86 from AL and CAD, mother dying age 87 from Alzheimer disease, patient had 1 brother with eye from small cell carcinoma the lung. Patient has Past Medical History Past Medical History: Cancer, Diabetes Mellitus, Deep Vein Thrombosis (DVT), Fibromyalgia, GERD/Reflux, Hyperlipidemia, Osteoarthritis (OA), Renal Disease, Thyroid Disorder Additional Past Medical History / Comment(s): uterine ca 50 years ago sx only.past falls, past c2 fx no sx but wore a brace , [place] eyes, uti's,. dizziness at times and occ when sitting will. blank out for few min, neuropathy feet,legs,and hands. stage 3 kidney failure History of Any Multi-Drug Resistant Organisms: None Reported Past Surgical History: Adenoidectomy, Back Surgery, Bariatric Surgery, Cholecystectomy, Hysterectomy, Tonsillectomy Additional Past Surgical History / Comment(s): loop monitor implanted 03-30-18 Past Anesthesia/Blood Transfusion Reactions: No Reported Reaction Type of Cardiac Device: Loop Device Placement Date:: 03/30/18 Past Psychological History: Anxiety, Depression Additional Psychological History / Comment(s): pt's friend lives with her in apt. pt [facility] [address]. has a walker and uses 02 2-3 liters at hs. 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 Smoking Status: Never smoker Past Alcohol Use History: None Reported Past Drug Use History: None Reported - Past Family History Brother(s) Family Medical History: Cancer Mother Family Medical History: Dementia Father Family Medical History: Myocardial Infarction (AL) Medications and Allergies Home Medications Medication Instructions Recorded Confirmed Type LORazepam [Ativan] 0.5 mg PO TID PRN 10/15/14 04/12/20 History Naproxen 500 mg PO DAILY 10/15/14 04/12/20 History Simvastatin [Zocor] 20 mg PO DAILY 10/15/14 04/12/20 History Meclizine [Antivert] 25 mg PO TID PRN 09/18/15 04/12/20 History Furosemide [Lasix] 40 mg PO DAILY 05/30/16 04/12/20 History Levothyroxine Sodium [Synthroid] 100 mcg PO DAILY 05/30/16 04/12/20 History Omeprazole [PriLOSEC] 20 mg PO DAILY 05/22/18 04/12/20 History traMADol HCL [Ultram] 50 mg PO DAILY 05/22/18 04/12/20 History Citalopram Hydrobromide 40 mg PO DAILY 09/07/19 04/12/20 History [Citalopram HBr] Potassium Chloride ER [K-Dur 10] 10 meq PO DAILY 09/07/19 04/12/20 History Empagliflozin [Jardiance] 25 mg PO BID 04/04/20 04/12/20 History amLODIPine [Norvasc] 5 mg PO DAILY 04/05/20 04/12/20 History Clopidogrel Bisulfate [Plavix] 75 mg PO DAILY #90 tab 04/06/20 04/12/20 Rx Albuterol Sulfate [Ventolin HFA] 1 - 2 puff INHALATION RT-QID PRN 04/10/20 04/12/20 History Ferrous Gluconate 324 mg PO DAILY 04/10/20 04/12/20 History Gabapentin [Neurontin] 300 mg PO TID 04/10/20 04/12/20 History Allergies Allergy/AdvReac Type Severity Reaction Status Date / Time Penicillins Allergy Rash/Hives Verified 04/12/20 12:17 Physical Exam Vitals: Vital Signs Temp Pulse Pulse Resp BP BP Pulse Ox 04/12/20 16:11 97.9 F 86 16 129/68 99 04/12/20 15:10 98.1 F 73 18 130/60 97 04/12/20 10:46 98.3 F 84 16 133/64 99 Intake and Output 04/12/20 04/12/20 04/12/20 06:59 14:59 22:59 Other: Weight 68.039 kg 68.039 kg General Appearance: Alert, cooperative, no distress, appears stated age. Neck HEENT: Supple, no lymphadenopathy, no thyroid enlargement, no carotid bruits. Lungs: Decreased breath some bilateral Rhonchi No Crackles or Wheezes. Chest Wall: Decrease expansion with deep inspiration no tenderness and no deformity was found on exam, no costochondral pain or discomfort. Heart: Regular rate and rhythm, S1, S2 normal, no murmur, rub or gallop. Back: Symmetric, no curvature, ROM normal, no CVA tenderness. Abdomen: Soft, non-tender, bowel sounds active all four quadrants, no masses, no organomegaly. Significant bruise and ecchymosis on the lower side especially the left. Extremities: Significant edema and swelling with significant bruise and hematoma in the left side thigh area compared to the right side.. Pulses: 2+ and symmetric. Skin: Skin color, texture, tugor normal, no rashes or lesions. Neurologic: Alert oriented x3 cranial nerves II through XII intact, no motor deficit, no abnormal balance or gait. Results CBC & Chem 7: 04/12/20 11:14 04/12/20 11:14 Labs: Abnormal Lab Results - Last 24 Hours (Table) 04/12/20 04/12/20 04/12/20 Range/Units 11:14 11:14 17:56 WBC 11.3 H (3.8-10.6) k/uL RBC 2.60 L (3.80-5.40) m/uL Hgb 8.5 L (11.4-16.0) gm/dL Hct 25.8 L (34.0-46.0) % Neutrophils # 8.6 H (1.3-7.7) k/uL Sodium 136 L (137-145) mmol/L BUN 38 H (7-17) mg/dL Creatinine 1.56 H (0.52-1.04) mg/dL Glucose 125 H (74-99) mg/dL POC Glucose (mg/dL) 151 H (75-99) mg/dL Thrombosis Risk Factor Assmnt - DVT/VTE Prophylaxis DVT/VTE Prophylaxis: Mechanical Prophylaxis ordered - Choose All That Apply Each Factor Represents 1 point: Obesity (BMI >25) Each Risk Factor Represents 2 Points: Age 61-74 years, Arthroscopic surgery Thrombosis Risk Factor Assessment Total Risk Factor Score: 5 Thrombosis Risk Factor Assessment Level: High Risk Assessment and Plan Assessment: 1 acute blood loss anemia: Secondary to large hematoma in the thigh area after angioplasty of the femoral popliteal artery. Continue conservative management compression consult intervention cardiology. 2 acute blood loss anemia: Hemoglobin is down to 8.5 no need for transfusion at this point type and cross and no transfusion needed. 3 acute kidney injury: Worsening kidney function compared to her baseline, continue patient on mild hydration repeat BNP creatinine and next 24 hours. 4 CAD: Post angioplasty and stent placement has been stable and doing well seen cardiology regularly. 5 Type 2 diabetes: A Chin has been on Giardia and's Accu-Chek with sliding scales coverage and be done. 6 hypertension: Continue patient on Norvasc 5 mg a day. 7 hyperlipidemia: Continue patient on Zocor 20 mg daily. 8 COPD/asthma: Patient has been on Ventolin HFA no flareup lately. 9 chronic diastolic congestive heart failure: Remain on Lasix 40 mg daily continue to watch for any worsening edema or fluid retention. 10 chronic neuropathy: Has been on gabapentin 300 mg 3 times a day. 11 hypothyroidism: Continue patient on levothyroxine 100 g daily. 12 chronic depression: Patient be on cytology from 40 mg daily. 13 chronic pain management: Has been on Ultram 50 mg 3 times a day as needed. DVT prophylaxis: Venodyne boots no anticoagulation to be use at this point. GI prophylaxis: Continue patient on omeprazole 20 mg daily. CODE STATUS: Full code. Admit patient to inpatient status for more than 2 night stay.
[2020-04-12 20:05] LABS: Glucose,Whole Blood 148 mg/dL (75-99)
[2020-04-12] MEDS: GABAPENTIN 300 MG CAP PO SCH (20:46)
[2020-04-13 06:13] LABS: Glucose,Whole Blood 113 mg/dL (75-99)
[2020-04-13] MEDS: PANTOPRAZOLE 40 MG TABLET PO SCH (06:33)
[2020-04-13] MEDS: LEVOTHYROXINE 100 MCG TAB PO SCH (06:33)
[2020-04-13 06:55] LABS: Basophils # (A) 0.1 k/uL (0-0.2); Basophils % (A) 1 %; Eosinophils # (A) 0.5 k/uL (0-0.7); Eosinophils % (A) 6 %; HCT 25.7 % (34.0-46.0); HGB 8.4 gm/dL (11.4-16.0); Hypochromasia Slight; Lymphocytes # (A) 1.6 k/uL (1.0-4.8); Lymphocytes % (A) 20 %; MCH 32.2 pg (25.0-35.0); MCHC 32.7 g/dL (31.0-37.0); MCV 98.5 fL (80.0-100.0); Mean Platelet Volume 6.5; Monocytes # (A) 0.5 k/uL (0-1.0); Monocytes % (A) 6 %; Neutrophils # (A) 5.3 k/uL (1.3-7.7); Neutrophils % (A) 66 %; Platelet Count 336 k/uL (150-450); RBC 2.61 m/uL (3.80-5.40); RDW 14.3 % (11.5-15.5)
[2020-04-13 07:13] LABS: Albumin 3.6 g/dL (3.5-5.0); Potassium 3.8 mmol/L (3.5-5.1); Total Bilirubin 0.9 mg/dL (0.2-1.3); Total Protein 6.4 g/dL (6.3-8.2)
[2020-04-13] MEDS: traMADol 50 MG TAB PO SCH (09:37)
[2020-04-13] MEDS: ATORVASTATIN 10 MG TAB PO SCH (09:38)
[2020-04-13] MEDS: GABAPENTIN 300 MG CAP PO SCH ×3 (09:38→20:47)
[2020-04-13] MEDS: CLOPIDOGREL 75 MG TAB PO SCH (09:38)
[2020-04-13] MEDS: CITALOPRAM HYDROBROMIDE 20 MG TAB PO SCH (09:38)
[2020-04-13] MEDS: amLODIPine 5 MG TAB PO SCH (09:38)
[2020-04-13] MEDS: POTASSIUM CHLORIDE ER 10 MEQ TAB.ER.PRT PO SCH (09:38)
[2020-04-13] MEDS: FUROSEMIDE 40 MG TAB PO SCH (09:38)
[2020-04-13] MEDS: FERROUS SULFATE 325 MG TAB PO SCH (09:38)
[2020-04-13] MEDS: NON FORMULARY DRUG (Empagliflozin [Jardiance] 25 MG) PO SCH ×2 (10:34→20:44)
--- NOTE | 2020-04-13 11:30 | P.PN ---
Subjective Progress Note Date: 04/13/20 75-year-old female one of Dr. Roe patient who had procedure with Dr. Swenson for angioplasty and stent of the femoral-popliteal artery in April 05 developed to have significant swelling and edema with worsening hematoma over the last few days. Patient apparently was seen Dr. Roe and had blood test shows significant anemia with significant drop in hemoglobin compared to previous test. Patient was instructed to come to the hospital where was seen and evaluated had significant hematoma and large bruise on left side with significant edema with worsening pain and discomfort has been having trouble with ambulating and walking. Patient also found to be in acute kidney injury with chronic kidney disease. Patient declined any acute gastrointestinal bleed no hematuria no other bleed. She was started on IV hydration time and cross we'll consult Dr. Dolan for follow-up on her angiogram site patient be hospitalized. 04/13: Patient remains in the selective care unit. She continues to have s oreness in the groin and tenderness. She has been afebrile, heart rate in the 70s, blood pressure 147/71, pulse ox 90% on 2 L nasal cannula. Repeat blood work reveals hemoglobin of 8.4, BUN 35 and creatinine 1.37. CAT scan of the abdomen and pelvis without contrast revealed vascular stent seen within the inferior vena cava. Soft tissue fullness and subcutaneous edema involving the medial upper thigh musculature suspicious for intramuscular or soft tissue hematoma. Subcutaneous edema extending into the left groin and left groin musculature. Correlate for active hemorrhage. Pancreatic atrophy. Left basilar infiltrate. Small hiatal hernia. Postsurgical changes. Review of systems CONSTITUTIONAL: Well-developed no acute respiratory distress. Denies fever, denies chills. EYES: No icterus sclerae, no conjunctivitis. EARS, NOSE, MOUTH, THROAT, and FACE: No sore throat, lymphadenopathy, carotid bruits or deformity. RESPIRATORY: Mild shortness of breath no cough wheezes. CARDIOVASCULAR: Positive PND or tender palpitation or angina. GASTROINTESTINAL: No Abd pain, Nausea or vomiting, no Diarrhea or constipation, No GI Bleed, no distention or masses. GENITOURINARY: Negative for Hematuria or UTI, no kidney stones. INTEGUMENT/BREAST: Significant soft tissue swelling specially in the thigh and the groin area worsening in the left on the right side. HEMATOLOGIC/LYMPHATIC: Negative for bleed or purpura. MUSCULOSKELTAL: Negative for Myalgia or arthralgia. NEURLOGICAL: No LOC, Sz or syncope, blurred vision dizziness or abnormality.. BEHAVIORAL/PSYCH: Negative. ENDOCRINE: Negative. Physical examination General Appearance: Alert, cooperative, no distress, appears stated age. Neck HEENT: Supple, no lymphadenopathy, no thyroid enlargement, no carotid bruits. Lungs: Decreased breath some bilateral Rhonchi No Crackles or Wheezes. Chest Wall: Decrease expansion with deep inspiration no tenderness and no deformity was found on exam, no costochondral pain or discomfort. Heart: Regular rate and rhythm, S1, S2 normal, no murmur, rub or gallop. Back: Symmetric, no curvature, ROM normal, no CVA tenderness. Abdomen: Soft, non-tender, bowel sounds active all four quadrants, no masses, no organomegaly. Significant bruise and ecchymosis on the lower side especially the left. Extremities: Significant edema and swelling with significant bruise and hematoma in the left groin. Positive tenderness. Pulses: 2+ and symmetric. Skin: Skin color, texture, tugor normal, no rashes or lesions. Neurologic: Alert oriented x3 cranial nerves II through XII intact, no motor deficit, no abnormal balance or gait. Assessment and plan 1 acute blood loss anemia: Secondary to large hematoma in the thigh area after angioplasty of the femoral popliteal artery. Continue conservative management compression consult cardiology. 2 acute blood loss anemia: Hemoglobin is down to 8.5 no need for transfusion at this point type and cross and no transfusion needed. 3 acute kidney injury: Worsening kidney function compared to her baseline, continue patient on mild hydration repeat BNP creatinine and next 24 hours. 4 CAD: Post angioplasty and stent placement has been stable and doing well seen cardiology regularly. 5 Type 2 diabetes: Patient has been on Jardiance 25 mg twice daily and's Accu- Chek with sliding scales coverage to be done. 6 hypertension: Continue patient on Norvasc 5 mg a day. 7 hyperlipidemia: Continue patient on Zocor 20 mg daily. 8 COPD/asthma: Patient has been on Ventolin HFA no flareup lately. 9 chronic diastolic heart failure: Remain on Lasix 40 mg daily continue to watch for any worsening edema or fluid retention. 10 chronic neuropathy: Has been on gabapentin 300 mg 3 times a day. 11 hypothyroidism: Continue patient on levothyroxine 100 g daily. 12 recurrent depression: Patient be on citalopram 40 mg daily. 13 chronic pain management: Has been on Ultram 50 mg 3 times a day as needed. DVT prophylaxis: Venodyne boots no anticoagulation to be use at this point. GI prophylaxis: Continue patient on omeprazole 20 mg daily. COVID-19 testing. CODE STATUS: Full code. Discharge plan: To be determined. PT and social work consults. Anticipate discharge on Friday. Impression and plan of care have been directed as dictated by the signing physician. Lor Sanders nurse practitioner acting as scribe for signing physician. Objective - Vital Signs Vital signs: Vital Signs Temp 97.5 F L 04/13/20 08:00 Pulse 78 04/13/20 08:00 Resp 18 04/13/20 08:00 BP 147/71 04/13/20 08:00 Pulse Ox 98 04/13/20 08:00 Intake & Output 04/12/20 04/13/20 04/13/20 18:59 06:59 18:59 Intake Total 222 Output Total 360 Balance 222 -360 Weight 68.039 kg 66.1 kg Intake: Oral 222 Output: Urine 360 Other: # Voids 2 - Labs CBC & Chem 7: 04/13/20 06:29 04/13/20 06:29 Labs: Abnormal Lab Results - Last 24 Hours (Table) 04/12/20 04/12/20 04/12/20 Range/Units 11:14 11:14 17:56 WBC 11.3 H (3.8-10.6) k/uL RBC 2.60 L (3.80-5.40) m/uL Hgb 8.5 L (11.4-16.0) gm/dL Hct 25.8 L (34.0-46.0) % Neutrophils # 8.6 H (1.3-7.7) k/uL Sodium 136 L (137-145) mmol/L BUN 38 H (7-17) mg/dL Creatinine 1.56 H (0.52-1.04) mg/dL Glucose 125 H (74-99) mg/dL POC Glucose (mg/dL) 151 H (75-99) mg/dL 04/12/20 04/12/20 04/13/20 Range/Units 18:05 20:03 06:12 WBC 10.9 H (3.8-10.6) k/uL RBC 2.61 L (3.80-5.40) m/uL Hgb 8.8 L (11.4-16.0) gm/dL Hct 26.1 L (34.0-46.0) % Neutrophils # 7.8 H (1.3-7.7) k/uL Sodium (137-145) mmol/L BUN (7-17) mg/dL Creatinine (0.52-1.04) mg/dL Glucose (74-99) mg/dL POC Glucose (mg/dL) 148 H 113 H (75-99) mg/dL 04/13/20 04/13/20 Range/Units 06:29 06:29 WBC (3.8-10.6) k/uL RBC 2.61 L (3.80-5.40) m/uL Hgb 8.4 L (11.4-16.0) gm/dL Hct 25.7 L (34.0-46.0) % Neutrophils # (1.3-7.7) k/uL Sodium (137-145) mmol/L BUN 35 H (7-17) mg/dL Creatinine 1.37 H (0.52-1.04) mg/dL Glucose 106 H (74-99) mg/dL POC Glucose (mg/dL) (75-99) mg/dL
[2020-04-13 12:08] LABS: Glucose,Whole Blood 117 mg/dL (75-99)
[2020-04-13] MEDS: ACETAMINOPHEN TAB 325 MG TAB PO PRN ×3 (12:24→23:06)
[2020-04-13] MEDS: INSULIN ASPART (NovoLOG) 100 UNIT/ML VIAL SQ SCH ×3 (12:26→20:47)
--- NOTE | 2020-04-13 13:32 | P.CRDCN ---
History of Present Illness History of present illness: This is Tyra Fisher PA-C dictating a consult on this patient The patient was interviewed and examined by me as well as by Dr. Collins Case discussed with Dr. 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 She recently underwent successful stenting of the bilateral common iliac and external iliac veins by Dr. 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 Patient states she has felt tired for the last month but has been worse the last few weeks. She denies any increasing shortness of breath. No dizziness. No chest pain. She has a bowel movement every 2 weeks after taking [id number] laxatives, denies any dark tarry stool, hematochezia however she has not had a bowel movement recently. She continues to have lower extre mity edema even after the stenting. He states the stenting initially helped the right leg heart at the left remained swollen. She has also had a lot of pain in the left groin. She was seen in the emergency department 2 days ago for pain in her groin and lower extremity Doppler showed no evidence of pseudoaneurysm, AV shunting hematoma. Showed normal arterial waveform in the left femoral artery and patent left femoral vein She was sent into the emergency department for again abnormal labs, hemoglobin trending down. Upon arrival to the emergency department vital signs were stable. CT of the abdomen and pelvis showed soft tissue fullness and subcutaneous edema involving the medial upper thigh and extending into the left groin. Hemoglobin was 8.8. Patient was admitted for further workup. Patient seen and examined resting in bed. Continues to have pain in the left groin that shoots down the leg. She denies any chest pain. No shortness of breath. ROS: No fevers, chills or rigors, no cough, phlegm or expectoration, no nausea, vomiting or diarrhea, no hematuria, dysuria, Positive for lower extremity pain no strokes or seizures, no skin lesions. EXAMINATION: 97.5F, pulse 78, respirations 18, blood pressure 147/71, oxygen saturation 98% on 2 L nasal cannula Patient seen and examined resting in bed, in no acute distress Heart is regular, soft systolic murmur Lungs with few scattered crackles at the bases Bilateral lower extremity edema, left greater than right Left groin tender to palpation, healing ecchymosis noted, small palpable hematoma at the left groin REVIEW OF LABS, ECG & MEDICAL DATA WBC 8.0, hemoglobin 8.4, platelets 336, potassium 3.8, BUN 35, creatinine 1.37 Echocardiogram in September 2019 showed EF 55% IMPRESSION / ASSESSMENT: #1 anemia secondary to left groin hematoma after recent venous stenting #2 severe stenosis of bilateral common iliac veins, external iliac veins and left common femoral vein status post recent stenting #3 diabetes #4 dyslipidemia #5 acute kidney injury #6 history of DVT of the right femoral vein PLAN: Continue to monitor hemoglobin Conservative management for the groin hematoma Continue low-dose Lasix Past Medical History Past Medical History: Cancer, Diabetes Mellitus, Deep Vein Thrombosis (DVT), Fibromyalgia, GERD/Reflux, Hyperlipidemia, Osteoarthritis (OA), Renal Disease, Thyroid Disorder Additional Past Medical History / Comment(s): uterine ca 50 years ago sx only.past falls, past c2 fx no sx but wore a brace , glac[place] eyes, uti's,. dizziness at times and occ when sitting will. blank out for few min, neuropathy feet,legs,and hands. stage 3 kidney failure History of Any Multi-Drug Resistant Organisms: None Reported Past Surgical History: Adenoidectomy, Back Surgery, Bariatric Surgery, Cholecystectomy, Hysterectomy, Tonsillectomy Additional Past Surgical History / Comment(s): loop monitor implanted 03-30-18 Past Anesthesia/Blood Transfusion Reactions: No Reported Reaction Type of Cardiac Device: Loop Device Placement Date:: 03/30/18 Past Psychological History: Anxiety, Depression Additional Psychological History / Comment(s): pt's friend lives with her in apt. pt recieves gluc[employer] thru [employer] on aging. has a walker and uses 02 2-3 liters at hs. 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 Smoking Status: Never smoker Past Alcohol Use History: None Reported Past Drug Use History: None Reported - Past Family History Brother(s) Family Medical History: Cancer Mother Family Medical History: Dementia Father Family Medical History: Myocardial Infarction ([place]) Medications and Allergies Home Medications Medication Instructions Recorded Confirmed Type LORazepam [Ativan] 0.5 mg PO TID PRN 10/15/14 04/12/20 History Naproxen 500 mg PO DAILY 10/15/14 04/12/20 History Simvastatin [Zocor] 20 mg PO DAILY 10/15/14 04/12/20 History Meclizine [Antivert] 25 mg PO TID PRN 09/18/15 04/12/20 History Furosemide [Lasix] 40 mg PO DAILY 05/30/16 04/12/20 History Levothyroxine Sodium [Synthroid] 100 mcg PO DAILY 05/30/16 04/12/20 History Omeprazole [PriLOSEC] 20 mg PO DAILY 05/22/18 04/12/20 History traMADol HCL [Ultram] 50 mg PO DAILY 05/22/18 04/12/20 History Citalopram Hydrobromide 40 mg PO DAILY 09/07/19 04/12/20 History [Citalopram HBr] Potassium Chloride ER [K-Dur 10] 10 meq PO DAILY 09/07/19 04/12/20 History Empagliflozin [Jardiance] 25 mg PO BID 04/04/20 04/12/20 History amLODIPine [Norvasc] 5 mg PO DAILY 04/05/20 04/12/20 History Clopidogrel Bisulfate [Plavix] 75 mg PO DAILY #90 tab 04/06/20 04/12/20 Rx Albuterol Sulfate [Ventolin HFA] 1 - 2 puff INHALATION RT-QID PRN 04/10/20 04/12/20 History Ferrous Gluconate 324 mg PO DAILY 04/10/20 04/12/20 History Gabapentin [Neurontin] 300 mg PO TID 04/10/20 04/12/20 History Allergies Allergy/AdvReac Type Severity Reaction Status Date / Time Penicillins Allergy Rash/Hives Verified 04/12/20 12:17 Physical Exam Vitals: Vital Signs Temp Pulse Pulse Resp BP BP Pulse Ox 04/13/20 08:00 97.5 F L 78 18 147/71 98 04/13/20 04:00 98.1 F 72 18 140/63 97 04/13/20 00:00 98.0 F 63 16 100/51 97 04/12/20 20:40 97.9 F 71 16 115/87 99 04/12/20 16:11 97.9 F 86 16 129/68 99 04/12/20 15:10 98.1 F 73 18 130/60 97 Intake and Output 04/12/20 04/13/20 04/13/20 22:59 06:59 14:59 Intake Total 222 240 Output Total 360 Balance 222 -360 240 Intake: Oral 222 240 Output: Urine 360 Other: # Voids 2 0 Weight 68.039 kg 66.1 kg Results 04/13/20 06:29 04/13/20 06:29 Cardiac Enzymes 04/13/20 Range/Units 06:29 AST 22 (14-36) U/L CBC 04/12/20 04/13/20 Range/Units 18:05 06:29 WBC 10.9 H 8.0 (3.8-10.6) k/uL RBC 2.61 L 2.61 L (3.80-5.40) m/uL Hgb 8.8 L 8.4 L (11.4-16.0) gm/dL Hct 26.1 L 25.7 L (34.0-46.0) % Plt Count 319 336 (150-450) k/uL Comprehensive Metabolic Panel 04/13/20 Range/Units 06:29 Sodium 138 (137-145) mmol/L Potassium 3.8 (3.5-5.1) mmol/L Chloride 102 (98-107) mmol/L Carbon Dioxide 28 (22-30) mmol/L BUN 35 H (7-17) mg/dL Creatinine 1.37 H (0.52-1.04) mg/dL Glucose 106 H (74-99) mg/dL Calcium 9.0 (8.4-10.2) mg/dL AST 22 (14-36) U/L ALT 9 (4-34) U/L Alkaline Phosphatase 71 (38-126) U/L Total Protein 6.4 (6.3-8.2) g/dL Albumin 3.6 (3.5-5.0) g/dL Current Medications Generic Name Dose Route Start Last Admin Trade Name Freq PRN Reason Stop Dose Admin Acetaminophen 650 mg 04/12/20 14:08 04/13/20 12:24 Tylenol Tab PO 650 mg Q6HR PRN Administration Mild Pain or Fever > 100.5 Albuterol Sulfate 2.5 mg 04/12/20 18:17 Ventolin Nebulized INHALATION RT-QID PRN Shortness Of Breath Amlodipine Besylate 5 mg 04/13/20 09:00 04/13/20 09:38 Norvasc PO 5 mg DAILY ALBERTO Administration Atorvastatin Calcium 10 mg 04/13/20 09:00 04/13/20 09:38 Lipitor PO 10 mg DAILY ALBERTO Administration Citalopram Hydrobromide 40 mg 04/13/20 09:00 04/13/20 09:38 Celexa PO 40 mg DAILY ALBERTO Administration Clopidogrel Bisulfate 75 mg 04/13/20 09:00 04/13/20 09:38 Plavix PO 75 mg DAILY [facility] Administration Ferrous Sulfate 325 mg 04/13/20 09:00 04/13/20 09:38 Feosol PO 325 mg DAILY ALBERTO Administration Furosemide 40 mg 04/13/20 09:00 04/13/20 09:38 Lasix PO 40 mg DAILY [facility] Administration Gabapentin 300 mg 04/12/20 22:00 04/13/20 09:38 Neurontin PO 300 mg TID ALBERTO Administration Insulin Aspart 0 unit 04/13/20 12:30 04/13/20 12:26 Novolog SQ Not Given ACHS [facility] Protocol Levothyroxine Sodium 100 mcg 04/13/20 06:30 04/13/20 06:33 Synthroid PO 100 mcg DAILY@0630 [facility] Administration Lorazepam 0.5 mg 04/12/20 18:17 Ativan PO TID PRN Anxiety Meclizine HCl 25 mg 04/12/20 18:17 Antivert PO TID PRN Vertigo Naloxone HCl 0.2 mg 04/12/20 14:08 Narcan IV Q2M PRN Opioid Reversal Non-Formulary Medication 25 mg 04/13/20 09:00 04/13/20 10:34 Empagliflozin [Jardiance] PO Not Given BID [facility] Pantoprazole Sodium 40 mg 04/13/20 07:30 04/13/20 06:33 Protonix PO 40 mg AC-BRKFST [facility] Administration Potassium Chloride 10 meq 04/13/20 09:00 04/13/20 09:38 K-Dur 10 PO 10 meq DAILY [facility] Administration Tramadol HCl 50 mg 04/13/20 09:00 04/13/20 09:37 Ultram PO 50 mg DAILY ALBERTO Administration Intake and Output 04/12/20 04/13/20 04/13/20 22:59 06:59 14:59 Intake Total 222 240 Output Total 360 Balance 222 -360 240 Intake: Oral 222 240 Output: Urine 360 Other: # Voids 2 0 Weight 68.039 kg 66.1 kg 04/13/20 06:29 04/13/20 06:29
[2020-04-13 16:52] LABS: Glucose,Whole Blood 114 mg/dL (75-99)
[2020-04-13 20:12] LABS: Glucose,Whole Blood 140 mg/dL (75-99)
[2020-04-14 04:19] VITALS: TEMP 98.1
[2020-04-14 05:59] LABS: Glucose,Whole Blood 116 mg/dL (75-99)
[2020-04-14] MEDS: INSULIN ASPART (NovoLOG) 100 UNIT/ML VIAL SQ SCH ×2 (06:23→12:14)
[2020-04-14] MEDS: LEVOTHYROXINE 100 MCG TAB PO SCH (06:40)
[2020-04-14] MEDS: PANTOPRAZOLE 40 MG TABLET PO SCH (06:40)
[2020-04-14 07:14] LABS: Hypochromasia Slight; MCH 31.4 pg (25.0-35.0); Mean Platelet Volume 6.7; Platelet Count 308 k/uL (150-450); RBC 2.55 m/uL (3.80-5.40); RDW 14.3 % (11.5-15.5); WBC 6.7 k/uL (3.8-10.6)
[2020-04-14 07:33] LABS: Calcium 8.8 mg/dL (8.4-10.2); Potassium 4.2 mmol/L (3.5-5.1)
[2020-04-14] MEDS: traMADol 50 MG TAB PO SCH (10:08)
[2020-04-14] MEDS: CLOPIDOGREL 75 MG TAB PO SCH (10:08)
[2020-04-14] MEDS: ATORVASTATIN 10 MG TAB PO SCH (10:08)
[2020-04-14] MEDS: amLODIPine 5 MG TAB PO SCH (10:08)
[2020-04-14] MEDS: FUROSEMIDE 40 MG TAB PO SCH (10:08)
[2020-04-14] MEDS: CITALOPRAM HYDROBROMIDE 20 MG TAB PO SCH (10:09)
[2020-04-14] MEDS: FERROUS SULFATE 325 MG TAB PO SCH (10:09)
[2020-04-14] MEDS: GABAPENTIN 300 MG CAP PO SCH (10:09)
[2020-04-14] MEDS: NON FORMULARY DRUG (Empagliflozin [Jardiance] 25 MG) PO SCH (10:10)
[2020-04-14] MEDS: POTASSIUM CHLORIDE ER 10 MEQ TAB.ER.PRT PO SCH (10:10)
[2020-04-14 11:31] VITALS: BP 136/61; PULSE 72; RESP 16
[2020-04-14 12:06] LABS: Glucose,Whole Blood 122 mg/dL (75-99)
--- NOTE | 2020-04-14 13:24 | P.DS ---
Providers Date of admission: 04/12/20 14:08 Expected date of discharge: 04/14/20 Attending physician: Alan Agrawal Consults: 04/12/20 14:09 Consult Physician Routine Consulting Provider: Riccardo Swenson Consult Reason/Comments: Status post iliac vein stent Do you want consulting provider notified?: Already Contacted Primary care physician: Herberth MaeBhupinder [facility] Course: 75-year-old female one of Dr. Roe patient who had procedure with Dr. Swenson for angioplasty and stent of the femoral-popliteal artery in April 05 developed to have significant swelling and edema with worsening hematoma over the last few days. Patient apparently was seen Dr. Roe and had blood test shows significant anemia with significant drop in hemoglobin compared to previous test. Patient was instructed to come to the hospital where was seen and evaluated had significant hematoma and large bruise on left side with significant edema with worsening pain and discomfort has been having trouble with ambulating and walking. Patient also found to be in acute kidney injury with chronic kidney disease. Patient declined any acute gastrointestinal bleed no hematuria no other bleed. She was started on IV hydration time and cross we'll consult Dr. Dolan for follow-up on her angiogram site patient be hospitalized. 04/13: Patient remains in the selective care unit. She continues to have sore ness in the groin and tenderness. She has been afebrile, heart rate in the 70s, blood pressure 147/71, pulse ox 90% on 2 L nasal cannula. Repeat blood work reveals hemoglobin of 8.4, BUN 35 and creatinine 1.37. CAT scan of the abdomen and pelvis without contrast revealed vascular stent seen within the inferior vena cava. Soft tissue fullness and subcutaneous edema involving the medial upper thigh musculature suspicious for intramuscular or soft tissue hematoma. Subcutaneous edema extending into the left groin and left groin musculature. Correlate for active hemorrhage. Pancreatic atrophy. Left basilar infiltrate. Small hiatal hernia. Postsurgical changes. 04/14: Patient has been evaluated by therapy and recommended home. Patient states that she is able to ambulate on her own with no difficulty. Patient was evaluated yesterday by cardiology and recommends conservative management. Repeat hemoglobin today is 8, BUN 32 and creatinine 1.36. Blood sugars run between 94 and 140. We will plan for patient have outpatient lab work done on Friday and results to her physicians. Patient will be discharged home today in stable condition. Assessment and plan 1 acute blood loss anemia: Secondary to large hematoma in the thigh area after angioplasty of the femoral popliteal artery. 2 acute blood loss anemia. 3 acute kidney injury, chronic kidney disease stage III. 4 CAD: Post angioplasty and stent placement. 5 Type 2 diabetes. 6 hypertension. 7 hyperlipidemia. 8 mild intermittent asthma. 9 chronic diastolic heart failure. 10 chronic neuropathy. 11 hypothyroidism. 12 recurrent depression. 13 chronic pain management. 14 COVID-19 infection not present. Discharge plan: Home. Impression and plan of care have been directed as dictated by the signing physician. Lor Sanders nurse practitioner acting as scribe for signing physician. Patient Condition at Discharge: Good Plan - Discharge Summary Discharge Rx Participant: Yes New Discharge Prescriptions: No Action LORazepam [Ativan] 0.5 mg PO TID PRN PRN Reason: Anxiety Naproxen 500 mg PO DAILY Simvastatin [Zocor] 20 mg PO DAILY Meclizine [Antivert] 25 mg PO TID PRN PRN Reason: Vertigo Levothyroxine Sodium [Synthroid] 100 mcg PO DAILY Furosemide [Lasix] 40 mg PO DAILY Omeprazole [PriLOSEC] 20 mg PO DAILY traMADol HCL [Ultram] 50 mg PO DAILY Citalopram Hydrobromide [Citalopram HBr] 40 mg PO DAILY Potassium Chloride ER [K-Dur 10] 10 meq PO DAILY Empagliflozin [Jardiance] 25 mg PO BID amLODIPine [Norvasc] 5 mg PO DAILY Clopidogrel Bisulfate [Plavix] 75 mg PO DAILY #90 tab Albuterol Sulfate [Ventolin HFA] 1 - 2 puff INHALATION RT-QID PRN PRN Reason: Shortness Of Breath Gabapentin [Neurontin] 300 mg PO TID Ferrous Gluconate 324 mg PO DAILY Discharge Medication List LORazepam [Ativan] 0.5 mg PO TID PRN 10/15/14 [History] Naproxen 500 mg PO DAILY 10/15/14 [History] Simvastatin [Zocor] 20 mg PO DAILY 10/15/14 [History] Meclizine [Antivert] 25 mg PO TID PRN 09/18/15 [History] Furosemide [Lasix] 40 mg PO DAILY 05/30/16 [History] Levothyroxine Sodium [Synthroid] 100 mcg PO DAILY 09/08/16 [History] Omeprazole [PriLOSEC] 20 mg PO DAILY 05/22/18 [History] traMADol HCL [Ultram] 50 mg PO DAILY 05/22/18 [History] Citalopram Hydrobromide [Citalopram HBr] 40 mg PO DAILY 09/07/19 [History] Potassium Chloride ER [K-Dur 10] 10 meq PO DAILY 09/07/19 [History] Empagliflozin [Jardiance] 25 mg PO BID 04/04/20 [History] amLODIPine [Norvasc] 5 mg PO DAILY 04/05/20 [History] Clopidogrel Bisulfate [Plavix] 75 mg PO DAILY #90 tab 04/06/20 [Rx] Albuterol Sulfate [Ventolin HFA] 1 - 2 puff INHALATION RT-QID PRN 04/10/20 [History] Ferrous Gluconate 324 mg PO DAILY 04/10/20 [History] Gabapentin [Neurontin] 300 mg PO TID 04/10/20 [History] Follow up Appointment(s)/Referral(s): Riccardo Swenson MD [STAFF PHYSICIAN] - 04/24/20 2:45 pm [facility], [NON-STAFF] - (Nursing, PT/OT ) Herberth Roe DO [Primary Care Provider] - 3 Days (Physicians office will call you with a follow up appointment ) Ambulatory/Diagnostic Orders: Complete Blood Count w/diff [LAB.AMB] Location: None Selected Patient Instructions/Handouts: Anemia (DC), Hematoma (ED) Discharge Disposition: HOME WITH HOME HEALTH SERVICES
== END 2020-04-14 12:51 | disposition home health service (06) | DRG 920 ==
LOC: EC 10:44 → 3SCARD 14:08
PROVIDERS: ADMIT Internal Medicine Geriatric Medicine; ATTEND Internal Medicine Geriatric Medicine
DX: I97.638 Postprocedural hematoma of a circulatory system organ or structure following other circulatory system procedure (principal); D62 Acute posthemorrhagic anemia; I13.0 Hypertensive heart and chronic kidney disease with heart failure and stage 1 through stage 4 chronic kidney disease, or unspecified chronic kidney disease; I50.32 Chronic diastolic (congestive) heart failure; N17.9 Acute kidney failure, unspecified; F33.9 Major depressive disorder, recurrent, unspecified; E78.5 Hyperlipidemia, unspecified; E11.22 Type 2 diabetes mellitus with diabetic chronic kidney disease; E03.9 Hypothyroidism, unspecified; F41.9 Anxiety disorder, unspecified; Z11.59 Encounter for screening for other viral diseases; J44.9 Chronic obstructive pulmonary disease, unspecified; M79.7 Fibromyalgia; K21.9 Gastro-esophageal reflux disease without esophagitis; M19.90 Unspecified osteoarthritis, unspecified site; I25.10 Atherosclerotic heart disease of native coronary artery without angina pectoris; N18.3 Chronic kidney disease, stage 3 (moderate); E11.40 Type 2 diabetes mellitus with diabetic neuropathy, unspecified; K44.9 Diaphragmatic hernia without obstruction or gangrene; G89.29 Other chronic pain; J45.20 Mild intermittent asthma, uncomplicated; Z79.899 Other long term (current) drug therapy; Z79.890 Hormone replacement therapy; Z79.84 Long term (current) use of oral hypoglycemic drugs; Z79.02 Long term (current) use of antithrombotics/antiplatelets; Z88.0 Allergy status to penicillin; Z86.718 Personal history of other venous thrombosis and embolism; Z85.42 Personal history of malignant neoplasm of other parts of uterus; Z90.710 Acquired absence of both cervix and uterus; Z87.440 Personal history of urinary (tract) infections; Z90.49 Acquired absence of other specified parts of digestive tract; Z90.89 Acquired absence of other organs; Z98.890 Other specified postprocedural states; Z98.84 Bariatric surgery status; Z82.49 Family history of ischemic heart disease and other diseases of the circulatory system; Z82.0 Family history of epilepsy and other diseases of the nervous system; Z80.9 Family history of malignant neoplasm, unspecified; Z95.818 Presence of other cardiac implants and grafts; Z95.820 Peripheral vascular angioplasty status with implants and grafts
CPT/HCPCS: 36415; 74176; 80048; 80053; 83605; 85025; 85027; 85610; 85730; 86850; 86900; 86901; 93975; 94760; 96360; 96361; 96374; 99284; 99285

== ENCOUNTER → 2020-06-21 | Outpatient (CLI) | payer MEDICARE ==
[2020-06-21 15:55] LABS: Basophils # (A) 0.1 k/uL (0-0.2); Basophils % (A) 1 %; Eosinophils # (A) 0.4 k/uL (0-0.7); Eosinophils % (A) 4 %; HCT 35.6 % (34.0-46.0); HGB 11.5 gm/dL (11.4-16.0); Lymphocytes # (A) 1.2 k/uL (1.0-4.8); Lymphocytes % (A) 15 %; MCH 29.6 pg (25.0-35.0); MCHC 32.2 g/dL (31.0-37.0); Mean Platelet Volume 6.7; Monocytes # (A) 0.5 k/uL (0-1.0); Monocytes % (A) 6 %; Neutrophils % (A) 73 %; Platelet Count 261 k/uL (150-450); RBC 3.87 m/uL (3.80-5.40); RDW 12.8 % (11.5-15.5); WBC 8.3 k/uL (3.8-10.6)
[2020-06-21 16:00] LABS: Appearance,Urine Clear (Clear); Bilirubin,Urine Negative (Negative); Blood,Urine Negative (Negative); Color,Urine Light Yellow; Glucose,Urine (UA) 3+ (Negative); Ketones,Urine Negative (Negative); Leukocyte Esterase,Urine Negative (Negative); Nitrite,Urine Negative (Negative); PH, Urine 5.5 (5.0-8.0); Protein,Urine Negative (Negative); Specific Gravity,Urine 1.008 (1.001-1.035); Urobilinogen,Urine <2.0 mg/dL (<2.0)
[2020-06-21 17:00] LABS: Protein/Creatinine Ratio,Urine 0.583
[2020-06-22 03:01] LABS: % Iron Saturation 10.68 (12.00-45.00); African American GFR (CKD) 39.4 (60.0-200.0); Albumin 4.5 g/dL (3.80-4.90); Anion Gap 14.1 mmol/L (4.00-12.00); BUN/Creat Ratio 27.33 Ratio (12.00-20.00); Calcium 9.8 mg/dL (8.7-10.3); Carbon Dioxide 27.9 mmol/L (21.6-31.8); Phosphorus 4.1 mg/dL (2.4-5.1); Uric Acid 7.5 mg/dL (2.9-7.7)
[2020-06-22 03:10] LABS: Ferritin 85.1 ng/mL (10.0-291.0)
== END | disposition home or self-care (01) ==
LOC: LABWHC1 14:35
PROVIDERS: ATTEND Internal Medicine Nephrology
DX: N18.3 Chronic kidney disease, stage 3 (moderate) (principal); D63.1 Anemia in chronic kidney disease; N39.0 Urinary tract infection, site not specified; R80.9 Proteinuria, unspecified; M10.9 Gout, unspecified; N25.81 Secondary hyperparathyroidism of renal origin; E55.9 Vitamin D deficiency, unspecified
CPT/HCPCS: 36415; 80048; 81003; 82040; 82306; 82570; 82728; 83540; 83550; 83735; 83970; 84100; 84156; 84550; 85025

== ENCOUNTER → 2020-09-04 | Outpatient (CLI) | payer MEDICARE ==
--- NOTE | 2020-09-04 20:48 | MR ---
EXAMINATION TYPE: MR brain wo con DATE OF EXAM: 09/04/2020 COMPARISON: 09/18/2015 HISTORY: Syncope CONTRAST: Performed utilizing 0 mL intravenous Gadavist gadolinium contrast. TECHNIQUE: Multiplanar, multiecho imaging on a 3.0 Marga magnet is performed through the brain. Stud y is performed within 24 hours of arrival to the hospital. The craniovertebral junction is normal. The pituitary is normal. Diffusion-weighted imaging is performed. No abnormal hyperintensity is present to suggest an acute i ntracranial infarct or acute ischemic change. There is mild increased signal in the periventricular white matter which is nonspecific but could be related to some microvascular ischemic change. Ventricles and sulci are appropriate for the patient age. No significant interval changes evident. IMPRESSIONS: 1. Mild periventricular white matter changes most likely on the basis of chronic white matter ischemi c change, stable from comparison 2014
== END | disposition home or self-care (01) ==
LOC: RADMRIMAIN 19:48
PROVIDERS: ATTEND Family Medicine
DX: R55 Syncope and collapse (principal); R90.82 White matter disease, unspecified
CPT/HCPCS: 70551

== ENCOUNTER → 2020-09-09 | Outpatient (CLI) | payer MEDICARE ==
[2020-09-09 17:57] LABS: Chol/HDL Ratio 4.54; LDL Cholesterol,Calculated 128.4 mg/dL (0.0-131.0); VLDL Calculation 34.6 mg/dL (5.00-40.00)
== END | disposition home or self-care (01) ==
LOC: LABMAIN 10:29
PROVIDERS: ATTEND Nurse Practitioner Adult Health
DX: E78.5 Hyperlipidemia, unspecified (principal)
CPT/HCPCS: 36415; 80061

== ENCOUNTER → 2021-03-21 | Outpatient (CLI) | payer MEDICARE ==
[2021-03-21 14:35] LABS: Appearance,Urine Clear (Clear); Bilirubin,Urine Negative (Negative); Blood,Urine Negative (Negative); Color,Urine Yellow; Glucose,Urine (UA) 2+ (Negative); Hyaline Casts,Urine 13 /lpf (0-2); Ketones,Urine Negative (Negative); Leukocyte Esterase,Urine Moderate (Negative); Mucus,Urine Rare /hpf; Nitrite,Urine Negative (Negative); Protein,Urine Negative (Negative); RBC,Urine <1 /hpf (0-5); Specific Gravity,Urine 1.013 (1.001-1.035); Squamous Epithelial Cell,Urine <1 /hpf (0-4); Urobilinogen,Urine <2.0 mg/dL (<2.0); WBC,Urine 5 /hpf (0-5)
[2021-03-21 14:40] LABS: Creatinine,Urine Random 84.5 mg/dL; Protein/Creatinine Ratio,Urine 0.189
[2021-03-21 18:54] LABS: Basophils # (A) 0.08 X 10*3/uL (0.00-0.10); Basophils % (A) 0.6 %; Eosinophils # (A) 0.25 X 10*3/uL (0.04-0.35); Eosinophils % (A) 1.9 %; HCT 38.5 % (37.2-46.3); HGB 12.6 g/dL (12.0-15.0); Lymphocytes # (A) 1.48 X 10*3/uL (0.90-5.00); Lymphocytes % (A) 11.3 %; MCH 31.5 pg (27.0-32.0); MCHC 32.7 g/dL (32.0-37.0); MCV 96.3 fL (80.0-97.0); Mean Platelet Volume 9.8 fL (9.5-12.2); Monocytes # (A) 1.02 X 10*3/uL (0.20-1.00); Monocytes % (A) 7.8 %; Neutrophils # (A) 10.19 X 10*3/uL (1.80-7.70); Platelet Count 350 X 10*3/uL (140-440); RDW 12.5 % (11.5-14.5); WBC 13.07 X 10*3/uL (4.50-10.00)
[2021-03-21 20:51] LABS: Ferritin 64.3 ng/mL (10.0-291.0)
[2021-03-21 20:59] LABS: % Iron Saturation 17.07 (12.00-45.00); African American GFR (CKD) 20.2 (60.0-200.0); Albumin 5.1 g/dL (3.80-4.90); Anion Gap 14.5 mmol/L (4.00-12.00); BUN/Creat Ratio 28.46 Ratio (12.00-20.00); Carbon Dioxide 25.5 mmol/L (21.6-31.8); Magnesium 2.3 mg/dL (1.5-2.4); Non-African American GFR(CKD) 17.5 (60.0-200.0); Phosphorus 5.2 mg/dL (2.4-5.1); Potassium 5.2 mmol/L (3.5-5.5); Uric Acid 8.3 mg/dL (2.9-7.7)
== END | disposition home or self-care (01) ==
LOC: LABWHC1 13:40
PROVIDERS: ATTEND Nurse Practitioner Family
DX: N39.0 Urinary tract infection, site not specified (principal); N25.81 Secondary hyperparathyroidism of renal origin; N18.30 Chronic kidney disease, stage 3 unspecified; D64.9 Anemia, unspecified; E55.9 Vitamin D deficiency, unspecified; M10.9 Gout, unspecified; R80.9 Proteinuria, unspecified
CPT/HCPCS: 36415; 80048; 81001; 82040; 82306; 82570; 82728; 83540; 83550; 83735; 83970; 84100; 84156; 84550; 85025

== ENCOUNTER 2021-03-29 09:49 | Day surgery (SDC) | payer MEDICARE ==
[2021-03-28 13:56] VITALS: BMI 27.1
[~2021-03-29 09:49] MED LIST changes: +CLINDAMYCIN 900 MG in DEXTROSE 5% IN WATER 50 ML IVPB PRN; +SODIUM CHLORIDE 0.9% 1,000 ML IV SCH; -SODIUM CHLORIDE 0.9% 1,000 ML in EMPTY BAG 1 BAG IV ONE
[2021-03-29 10:15] LABS: Glucose,Whole Blood 132 mg/dL (75-99)
[2021-03-29 10:24] VITALS: RESP 18; TEMP 99
[2021-03-29] MEDS ORDERED: SODIUM CHLORIDE 0.9% 500 ML 500 ML IV ONE (10:24)
[2021-03-29] MEDS ORDERED: LIDOCAINE 1% INJ 10MG/ML (20 ML MDV) ONE (12:11)
[2021-03-29] MEDS: LIDOCAINE 1% INJ 10MG/ML (20 ML MDV) SQ ONE ×2 (12:25→12:29)
[2021-03-29] MEDS ORDERED: fentaNYL (PF) 50 MCG/ML 2 ML AMP ONE (12:31)
[2021-03-29] MEDS ORDERED: fentaNYL (PF) 50 MCG/ML 2 ML AMP IVP ONE (12:33)
--- NOTE | 2021-03-29 12:57 | P.EPPROC ---
- EP Procedure Note Electrophysiology Procedure Note: Procedure: Loop explant under sedation and local anesthesia. Diagnosis: Loop monitor at [facility] Patient was brought to the EP lab in a fasting state. Written informed consent was obtained prior to the procedure. The subcutaneous device was successfully explanted under local anesthesia. Preoperative antibiotics were administered. The wound was closed in layers and dressed per protocol. Result: Successful loop monitor explantation. Patient underwent EP procedure under conscious sedation/moderate sedation, monitoring of the level of consciousness and physiologic parameters including but not limited to vital signs and oxygenation. Patient tolerated the procedure well without any acute complications. Start time: 1224 Stop time: 1247
[2021-03-29 13:35] VITALS: BP 106/53; PULSE 76
== END 2021-03-29 13:47 | disposition home or self-care (01) ==
LOC: CATHEP 09:49
PROVIDERS: ATTEND Internal Medicine Clinical Cardiac Electrophysiology
DX: R55 Syncope and collapse (principal); I12.9 Hypertensive chronic kidney disease with stage 1 through stage 4 chronic kidney disease, or unspecified chronic kidney disease; E11.22 Type 2 diabetes mellitus with diabetic chronic kidney disease; N18.30 Chronic kidney disease, stage 3 unspecified; E78.5 Hyperlipidemia, unspecified; Z95.820 Peripheral vascular angioplasty status with implants and grafts; Z82.49 Family history of ischemic heart disease and other diseases of the circulatory system; Z79.84 Long term (current) use of oral hypoglycemic drugs; Z79.02 Long term (current) use of antithrombotics/antiplatelets; Z79.890 Hormone replacement therapy; Z79.891 Long term (current) use of opiate analgesic; Z79.899 Other long term (current) drug therapy; Z88.0 Allergy status to penicillin
CPT/HCPCS: 33286; J2001; J3010

== ENCOUNTER → 2021-04-11 | Outpatient (CLI) | payer MEDICARE ==
--- NOTE | 2021-04-11 10:12 | US ---
EXAMINATION TYPE: US abdomen comp/pelvis limited DATE OF EXAM: 04/11/2021 COMPARISON: NONE CLINICAL HISTORY: N18.3 stage 3 kidney disease. left flank pain, CKD stage III, cholecystectomy EXAM MEASUREMENTS: Liver Length: 16.2 cm Gallbladder Wall: Surgically absent CBD: 0.7 cm Spleen: 9.2 cm Right Kidney: 9.2 x 3.4 x 3.7 cm Left Kidney: 9.9 x 5.3 x 4.6 cm Technical limitations due to large amount of overlying bowel content Pancreas: Obscured by bowel gas Liver: limited evaluation Gallbladder: Surgically absent CBD: limited evaluation, appears wnl Spleen: appears heterogeneous Right Kidney: echogenic, thin renal cortex Left Kidney: echogenic, thin renal cortex Upper IVC: Obscured by overlying bowel gas Abd Aorta: Obscured by overlying bowel gas Bladder: not fully distended Bilateral Jets Seen no IMPRESSION: Limited evaluation due to poor acoustic window. The kidneys bilaterally are echogenic with renal cortical thinning, nonspecific but most consistent w ith chronic medical renal disease.
== END | disposition home or self-care (01) ==
LOC: RADUSWWP 09:02
PROVIDERS: ATTEND Internal Medicine Nephrology
DX: N18.30 Chronic kidney disease, stage 3 unspecified (principal); Z90.49 Acquired absence of other specified parts of digestive tract
CPT/HCPCS: 76700; 76857

== ENCOUNTER → 2021-04-19 | Outpatient (CLI) | payer MEDICARE ==
[2021-04-20 02:54] LABS: African American GFR (CKD) 31.4 (60.0-200.0); Anion Gap 12.9 mmol/L (4.00-12.00); BUN/Creat Ratio 18.33 Ratio (12.00-20.00); Calcium 9.9 mg/dL (8.7-10.3); Carbon Dioxide 27.1 mmol/L (21.6-31.8); Non-African American GFR(CKD) 27.1 (60.0-200.0); Potassium 4.7 mmol/L (3.5-5.5)
== END | disposition home or self-care (01) ==
LOC: LABWHC1 12:37
PROVIDERS: ATTEND Nurse Practitioner Family
DX: N18.30 Chronic kidney disease, stage 3 unspecified (principal)
CPT/HCPCS: 36415; 80048

== ENCOUNTER 2021-06-12 13:05 | Emergency (ER) | payer MEDICARE ==
[2021-06-12 14:00] VITALS: RESP 18
[2021-06-12] MEDS ORDERED: ACETAMINOPHEN TAB 500 MG TAB PO STA (14:46)
--- NOTE | 2021-06-12 15:51 | XR ---
EXAMINATION TYPE: XR foot complete RT DATE OF EXAM: 06/12/2021 COMPARISON: NONE HISTORY: Pain TECHNIQUE: Three views are submitted. FINDINGS: The osseous structures are intact. There is no acute fracture or dislocation. Narrowing of all DIP joints and mild narrowing of all MCP joints. Hammertoe deformities noted. A calcaneal spurs seen.. IMPRESSION: 1. No acute fracture or dislocation. If symptoms persist, follow-up exam in 7 to 10 days could be ob tained. 2. Arthropathy.
[2021-06-12 16:28] VITALS: BP 130/62; PULSE 79; TEMP 98
--- NOTE | 2021-06-12 16:56 | ED ---
General Adult HPI - General Chief complaint: Extremity Injury, Lower Stated complaint: rt foot pain Time Seen by Provider: 06/12/21 14:06 Source: patient Mode of arrival: ambulatory Limitations: no limitations - History of Present Illness Initial comments: 36-year-old female presents to the emergency room for right forefoot pain. Patient states she was taking a step on her way to the bus and felt a sudden pain in the forefoot. States it is painful to step on. Patient denies any other injuries. Denies any fevers or chills. Denies any swelling of the feet.Patient has no other complaints at this time including shortness of breath, chest pain, abdominal pain, nausea or vomiting, headache, or visual changes. - Related Data Home Medications Medication Instructions Recorded Confirmed LORazepam [Ativan] 0.5 mg PO DAILY 10/15/14 03/29/21 Simvastatin [Zocor] 20 mg PO DAILY 10/15/14 03/29/21 Meclizine [Antivert] 25 mg PO TID PRN 09/18/15 03/28/21 Furosemide [Lasix] 40 mg PO Q48H 05/30/16 03/29/21 Levothyroxine Sodium [Synthroid] 100 mcg PO DAILY 05/30/16 03/29/21 Omeprazole [PriLOSEC] 20 mg PO DAILY 05/22/18 03/29/21 traMADol HCL [Ultram] 50 mg PO DAILY 05/22/18 03/29/21 Citalopram Hydrobromide 10 mg PO TID BETWEEN MEALS 09/07/19 03/29/21 [Citalopram HBr] Albuterol Sulfate [Ventolin HFA] 1 - 2 puff INHALATION RT-QID PRN 04/10/20 03/28/21 Ferrous Gluconate 324 mg PO DAILY 04/10/20 03/29/21 Gabapentin [Neurontin] 300 mg PO TID 04/10/20 03/29/21 amLODIPine BESYLATE 5 mg PO DAILY 03/28/21 03/29/21 Previous Rx's Medication Instructions Recorded Clopidogrel Bisulfate [Plavix] 75 mg PO DAILY #90 tab 04/06/20 Allergies Allergy/AdvReac Type Severity Reaction Status Date / Time Penicillins Allergy SKIN TURNS Verified 06/12/21 14:00 RED Review of Systems ROS Statement: Those systems with pertinent positive or pertinent negative responses have been documented in the HPI. ROS Other: All systems not noted in ROS Statement are negative. Past Medical History Past Medical History: Cancer, Diabetes Mellitus, Deep Vein Thrombosis (DVT), Fibromyalgia, GERD/Reflux, Hyperlipidemia, Osteoarthritis (OA), Renal Disease, Thyroid Disorder Additional Past Medical History / Comment(s): uterine ca 50 years ago sx only.past falls, past c2 fx no sx but wore a brace , glacoma [place] eyes, uti's,. dizziness at times and occ when sitting will. blank out for few min, neuropathy feet,legs,and hands. stage 3 kidney failure History of Any Multi-Drug Resistant Organisms: None Reported Past Surgical History: Adenoidectomy, Back Surgery, Bariatric Surgery, Cholecystectomy, Hysterectomy, Tonsillectomy Additional Past Surgical History / Comment(s): loop monitor implanted 03-30-18 Past Anesthesia/Blood Transfusion Reactions: No Reported Reaction Type of Cardiac Device: Loop Device Placement Date:: 03/30/18 Past Psychological History: Anxiety, Depression Smoking Status: Never smoker Past Alcohol Use History: None Reported Past Drug Use History: None Reported - Past Family History Brother(s) Family Medical History: Cancer Mother Family Medical History: Dementia Father Family Medical History: Myocardial Infarction ([place]) General Exam Limitations: no limitations General appearance: alert, in no apparent distress Head exam: Present: atraumatic Eye exam: Present: normal appearance, PERRL, EOMI. Absent: scleral icterus, conjunctival injection ENT exam: Present: normal exam, mucous membranes moist Neck exam: Present: normal inspection, full ROM. Absent: tenderness Respiratory exam: Present: normal lung sounds bilaterally. Absent: respiratory distress, wheezes Cardiovascular Exam: Present: regular rate, normal rhythm, normal heart sounds Extremities exam: Present: full ROM (All range motion of the right foot.), normal capillary refill (Capillary refill less than 2 seconds, DP pulse 2+ right lower extremity), other (Plantar aspect of the right forefoot is tender however there is no erythema or edema. No evidence of abscess. No evidence of foreign body.) Course Vital Signs 06/12/21 06/12/21 13:57 16:27 Temperature 98.1 F 98.0 F Pulse Rate 84 79 Respiratory 18 18 Rate Blood Pressure 113/71 130/62 O2 Sat by Pulse 97 98 Oximetry Medical Decision Making - Medical Decision Making Stated the right foot shows no fracture or dislocation. There is arthropathy noted. At this time patient will be discharged home to follow up with primary c are. In the meantime recommend doing Tylenol for pain as she cannot take Motrin and rest ice and elevating the foot. She has any worsening symptoms she should return to the emergency room. Disposition Clinical Impression: Foot pain, right Disposition: HOME SELF-CARE Condition: Good Instructions (If sedation given, give patient instructions): Foot Contusion (ED) Additional Instructions: Take Tylenol for pain. Rest ice and elevate the right foot. Exam of any worsening symptoms return to the emergency room. Otherwise follow-up with primary care. Is patient prescribed a controlled substance at d/c from ED?: No Referrals: Herberth Roe DO [Primary Care Provider] - 1-2 days Time of Disposition: 16:55
== END 2021-06-12 17:05 | disposition home or self-care (01) ==
LOC: EC 13:05
DX: M79.671 Pain in right foot (principal); E11.9 Type 2 diabetes mellitus without complications; K21.9 Gastro-esophageal reflux disease without esophagitis; E78.5 Hyperlipidemia, unspecified; M19.90 Unspecified osteoarthritis, unspecified site; E07.9 Disorder of thyroid, unspecified; F41.9 Anxiety disorder, unspecified; F32.9 Major depressive disorder, single episode, unspecified; Z88.0 Allergy status to penicillin; Z86.718 Personal history of other venous thrombosis and embolism; Z85.42 Personal history of malignant neoplasm of other parts of uterus; Z90.89 Acquired absence of other organs; Z98.84 Bariatric surgery status; Z90.49 Acquired absence of other specified parts of digestive tract; Z90.710 Acquired absence of both cervix and uterus
CPT/HCPCS: 99283

== ENCOUNTER → 2021-06-15 | Outpatient (CLI) | payer MEDICARE ==
[2021-06-15 16:52] LABS: Appearance,Urine Clear (Clear); Bilirubin,Urine Negative (Negative); Blood,Urine Negative (Negative); Color,Urine Light Yellow; Glucose,Urine (UA) 3+ (Negative); Ketones,Urine Negative (Negative); Leukocyte Esterase,Urine Negative (Negative); Nitrite,Urine Negative (Negative); Protein,Urine Negative (Negative); Urobilinogen,Urine <2.0 mg/dL (<2.0)
[2021-06-15 17:04] LABS: Creatinine,Urine Random 58.8 mg/dL; Protein/Creatinine Ratio,Urine 0.153
[2021-06-15 23:17] LABS: Basophils # (A) 0.07 X 10*3/uL (0.00-0.10); Basophils % (A) 0.7 %; Eosinophils # (A) 0.14 X 10*3/uL (0.04-0.35); Eosinophils % (A) 1.3 %; HCT 37.2 % (37.2-46.3); HGB 11.9 g/dL (12.0-15.0); Lymphocytes # (A) 1.32 X 10*3/uL (0.90-5.00); Lymphocytes % (A) 12.3 %; MCH 30.9 pg (27.0-32.0); MCV 96.6 fL (80.0-97.0); Mean Platelet Volume 9.6 fL (9.5-12.2); Monocytes # (A) 0.82 X 10*3/uL (0.20-1.00); Monocytes % (A) 7.7 %; Neutrophils # (A) 8.31 X 10*3/uL (1.80-7.70); Neutrophils % (A) 77.7 %; Platelet Count 304 X 10*3/uL (140-440); RBC 3.85 X 10*6/uL (4.10-5.20); WBC 10.69 X 10*3/uL (4.50-10.00)
[2021-06-16 04:04] LABS: % Iron Saturation 19.78 (12.00-45.00); African American GFR (CKD) 18.4 (60.0-200.0); Albumin 4.8 g/dL (3.80-4.90); Anion Gap 12.8 mmol/L (4.00-12.00); BUN/Creat Ratio 26.79 Ratio (12.00-20.00); Calcium 9.9 mg/dL (8.7-10.3); Carbon Dioxide 26.2 mmol/L (21.6-31.8); Magnesium 2.2 mg/dL (1.5-2.4); Non-African American GFR(CKD) 15.9 (60.0-200.0); Phosphorus 4.1 mg/dL (2.4-5.1); Potassium 5.9 mmol/L (3.5-5.5); Uric Acid 6.4 mg/dL (2.9-7.7)
[2021-06-16 04:13] LABS: Ferritin 59.5 ng/mL (10.0-291.0)
== END | disposition home or self-care (01) ==
LOC: LABWHC1 16:25
PROVIDERS: ATTEND Nurse Practitioner Family
DX: N18.30 Chronic kidney disease, stage 3 unspecified (principal); E55.9 Vitamin D deficiency, unspecified; N25.81 Secondary hyperparathyroidism of renal origin; M10.9 Gout, unspecified; N39.0 Urinary tract infection, site not specified; D64.9 Anemia, unspecified; R80.9 Proteinuria, unspecified
CPT/HCPCS: 36415; 80048; 81003; 82040; 82306; 82570; 82728; 83540; 83550; 83735; 83970; 84100; 84156; 84550; 85025

== ENCOUNTER → 2021-07-23 | Outpatient (CLI) | payer MEDICARE ==
--- NOTE | 2021-07-23 16:02 | US ---
EXAMINATION TYPE: US kidneys/renal and bladder DATE OF EXAM: 07/23/2021 COMPARISON: NONE CLINICAL HISTORY: N18.3 Chronic kidney disease. CKD EXAM MEASUREMENTS: Right Kidney: 9.1 x 4.1 x 3.8 cm Left Kidney: 10.4 x 3.6 x 4.7 cm Right Kidney: decreased corticomedullary differentiation Left Kidney: decreased corticomedullary differentiation Bladder: wnl Bilateral Jets seen: no There is no evidence for hydronephrosis at this point in time. No nephrolithiasis is seen. No jackson s are identified. Cortical echogenicity appears somewhat increased The urinary bladder is anechoic. IMPRESSION: Findings consistent with medical renal disease.
== END | disposition home or self-care (01) ==
LOC: RADUSWWP 14:46
PROVIDERS: ATTEND Internal Medicine Nephrology
DX: N18.30 Chronic kidney disease, stage 3 unspecified (principal)
CPT/HCPCS: 76770

== ENCOUNTER → 2021-08-23 | Outpatient (CLI) | payer MEDICARE ==
[2021-08-23 15:29] LABS: Appearance,Urine Clear (Clear); Bilirubin,Urine Negative (Negative); Blood,Urine Negative (Negative); Color,Urine Light Yellow; Glucose,Urine (UA) 3+ (Negative); Ketones,Urine Negative (Negative); Leukocyte Esterase,Urine Negative (Negative); Nitrite,Urine Negative (Negative); PH, Urine 6.5 (5.0-8.0); Protein,Urine Negative (Negative); Specific Gravity,Urine 1.009 (1.001-1.035); Urobilinogen,Urine <2.0 mg/dL (<2.0)
[2021-08-23 15:38] LABS: Creatinine,Urine Random 22.5 mg/dL; Protein/Creatinine Ratio,Urine 0.4
[2021-08-23 23:36] LABS: Basophils # (A) 0.06 X 10*3/uL (0.00-0.10); Basophils % (A) 0.7 %; Eosinophils # (A) 0.33 X 10*3/uL (0.04-0.35); Eosinophils % (A) 3.8 %; HCT 36.4 % (37.2-46.3); HGB 11.2 g/dL (12.0-15.0); Lymphocytes # (A) 1.44 X 10*3/uL (0.90-5.00); Lymphocytes % (A) 16.5 %; MCH 29.9 pg (27.0-32.0); MCHC 30.8 g/dL (32.0-37.0); MCV 97.1 fL (80.0-97.0); Monocytes # (A) 0.65 X 10*3/uL (0.20-1.00); Monocytes % (A) 7.4 %; Neutrophils # (A) 6.25 X 10*3/uL (1.80-7.70); Neutrophils % (A) 71.4 %; Platelet Count 273 X 10*3/uL (140-440); RBC 3.75 X 10*6/uL (4.10-5.20); RDW 12.1 % (11.5-14.5); WBC 8.75 X 10*3/uL (4.50-10.00)
[2021-08-24 06:48] LABS: % Iron Saturation 18.61 (12.00-45.00); African American GFR (CKD) 36.2 (60.0-200.0); Albumin 4.4 g/dL (3.8-4.9); Anion Gap 18.4 mmol/L (10.00-18.00); BUN/Creat Ratio 18.88 Ratio (12.00-20.00); Blood Urea Nitrogen 30.2 mg/dL (9.0-27.0); Calcium 10.2 mg/dL (8.7-10.3); Carbon Dioxide 24.6 mmol/L (20.0-27.5); Ferritin 46.7 ng/mL (10.0-291.0); Magnesium 2.2 mg/dL (1.5-2.4); Non-African American GFR(CKD) 31.2 (60.0-200.0); Potassium 4.6 mmol/L (3.5-5.5); Uric Acid 7.4 mg/dL (2.9-7.7)
== END | disposition home or self-care (01) ==
LOC: LABWHC1 12:09
PROVIDERS: ATTEND Internal Medicine Nephrology
DX: E55.9 Vitamin D deficiency, unspecified (principal); N25.81 Secondary hyperparathyroidism of renal origin; N18.4 Chronic kidney disease, stage 4 (severe); M10.9 Gout, unspecified; N39.0 Urinary tract infection, site not specified; D64.9 Anemia, unspecified; R80.9 Proteinuria, unspecified
CPT/HCPCS: 36415; 80048; 81001; 81003; 82040; 82306; 82570; 82728; 83540; 83550; 83735; 83970; 84100; 84156; 84550; 85025

== ENCOUNTER 2021-11-13 06:08 | Emergency (ER) | payer MEDICARE ==
[2021-11-13] MEDS ORDERED: HYDROcodone/APAP 5-325MG 1 EACH TAB PO STA (06:23)
--- NOTE | 2021-11-13 06:30 | ED ---
Fall HPI - General Chief Complaint: Fall Stated Complaint: Fall Time Seen by Provider: 11/13/21 06:15 Source: patient, family Mode of arrival: wheelchair - History of Present Illness Initial Comments: This is a 76 year old female who presents to the emergency department following a fall in her bathroom this morning around 5:30am. States that she was not fully awake and slipped on her scale, causing her to fall backwards on the bathroom floor, hitting the back of her head. Her daughter heard her fall but did not see it and believes that she probably hit her head on a shoe rack in her bathroom before hitting her head on the floor, causing the laceration. Her daughter has a monitor in her room for her mother and saw her on the bathroom floor afterwards. Denies any LOC, nausea, or vomiting. She did not feel dizzy before she fell, but did feel less awake than usual this morning. She is not on any blood thinners. Currently in significant pain that she rates at a 10/10. She does have Tramadol and Naproxen at home that she is regularly prescribed. 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 Place Fall Occurred: home Loss of Consciousness: none Location: head Severity: severe Severity scale (1-10): 10 Context: tripped/slipped Associated Symptoms: headache - Related Data Home Medications Medication Instructions Recorded Confirmed LORazepam [Ativan] 0.5 mg PO DAILY 10/15/14 03/29/21 Simvastatin [Zocor] 20 mg PO DAILY 10/15/14 03/29/21 Meclizine [Antivert] 25 mg PO TID PRN 09/18/15 03/28/21 Furosemide [Lasix] 40 mg PO Q48H 05/30/16 03/29/21 Levothyroxine Sodium [Synthroid] 100 mcg PO DAILY 05/30/16 03/29/21 Omeprazole [PriLOSEC] 20 mg PO DAILY 05/22/18 03/29/21 traMADol HCL [Ultram] 50 mg PO DAILY 05/22/18 03/29/21 Citalopram Hydrobromide 10 mg PO TID BETWEEN MEALS 09/07/19 03/29/21 [Citalopram HBr] Albuterol Sulfate [Ventolin HFA] 1 - 2 puff INHALATION RT-QID PRN 04/10/20 03/28/21 Ferrous Gluconate 324 mg PO DAILY 04/10/20 03/29/21 Gabapentin [Neurontin] 300 mg PO TID 04/10/20 03/29/21 amLODIPine BESYLATE 5 mg PO DAILY 03/28/21 03/29/21 Previous Rx's Medication Instructions Recorded Clopidogrel Bisulfate [Plavix] 75 mg PO DAILY #90 tab 04/06/20 Allergies Allergy/AdvReac Type Severity Reaction Status Date / Time Penicillins Allergy SKIN TURNS Verified 11/13/21 06:18 RED Review of Systems ROS Statement: Those systems with pertinent positive or pertinent negative responses have been documented in the HPI. ROS Other: All systems not noted in ROS Statement are negative. Constitutional: Denies: fever, chills Respiratory: Denies: cough, dyspnea Cardiovascular: Denies: chest pain, palpitations Gastrointestinal: Denies: abdominal pain, nausea, vomiting Musculoskeletal: Denies: back pain Skin: Denies: rash, lesions Neurological: Reports: headache. 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 dizziness at times and occ when sitting will. blank out for few min, neuropathy feet,legs,and hands. stage 3 kidney failure History of Any Multi-Drug Resistant Organisms: None Reported Past Surgical History: Adenoidectomy, Back Surgery, Bariatric Surgery, Cholecystectomy, Hysterectomy, Tonsillectomy Additional Past Surgical History / Comment(s): loop monitor implanted 03-30-18 Past Anesthesia/Blood Transfusion Reactions: No Reported Reaction Type of Cardiac Device: Loop Device Placement Date:: 03/30/18 Past Psychological History: Anxiety, Depression Smoking Status: Never smoker Past Alcohol Use History: None Reported Past Drug Use History: None Reported - Past Family History Brother(s) Family Medical History: Cancer Mother Family Medical History: Dementia Father Family Medical History: Myocardial Infarction ([place]) General Exam Limitations: no limitations General appearance: alert, in no apparent distress Head exam: Present: other (Large hematoma on the occiput with 2cm laceration in the center and active bleeding) Neck exam: Present: normal inspection. Absent: tenderness, meningismus, lymphadenopathy Respiratory exam: Present: normal lung sounds bilaterally. Absent: respiratory distress, wheezes, rales, rhonchi, stridor Cardiovascular Exam: Present: regular rate, normal rhythm, normal heart sounds. Absent: systolic murmur, diastolic murmur, rubs, gallop, clicks Neurological exam: Present: alert, oriented X3, CN II-XII intact Psychiatric exam: Present: normal affect, normal mood Course Vital Signs 11/13/21 06:11 Temperature 98.4 F Pulse Rate 88 Respiratory 18 Rate Blood Pressure 147/55 O2 Sat by Pulse 98 Oximetry - Reevaluation(s) Time: 07:30 Time: 07:48 (Wound cleansed with hydrogen peroxide, laceration is shallow and does not require stitches.) Medical Decision Making - Medical Decision Making CT Scan brain and cervical spine obtained given the patient's age, mechanism of injury, and occipital hematoma. EKG obtained as well to rule out any cardiac abnormalities that may have lead to the fall. Both the CT scan and EKG revealed no acute changes. Occipital hematoma cleansed with hydrogen peroxide and additional sanguineous fluid expressed. The laceration is fairly shallow and miryam are not needed. Patient advised that this will continue to bleed over the next few days and should be expected. Return precautions reviewed in depth, the patient is instructed to return to the emergency department if symptoms worsen or do not improve, including but not limited to the development of worsening headaches, dizziness, nausea/vomiting, or visual changes. Patient and her daughter verbalized understanding. This case was discussed in detail with the attending ED physician. Presentation, findings, and treatment plan discussed in detail as well. - EKG Data EKG shows normal: sinus rhythm Interpretation: no acute changes - Radiology Data Radiology results: report reviewed, image reviewed Disposition Clinical Impression: Fall from slip, trip, or stumble, Hematoma of occipital region of scalp Disposition: HOME SELF-CARE Condition: Stable Instructions (If sedation given, give patient instructions): Fall Prevention for Older Adults (ED) Additional Instructions: Return to the emergency department if symptoms worsen or new symptoms arise such as dizziness, nausea/vomiting, visual changes, or a worsening headache. Expect the wound on the back of the head to continue bleeding over the next few days. As long as it does not squirt or shoot out blood, it is not of concern and is to be expected. Is patient prescribed a controlled substance at d/c from ED?: No Referrals: Herberth Roe DO [Primary Care Provider] - 1-2 days
--- NOTE | 2021-11-13 08:06 | CT ---
EXAMINATION TYPE: CT brain cspine wo con DATE OF EXAM: 11/13/2021 COMPARISON: CT dated 04/05/2020 HISTORY: Fall CT DLP: 1334.8 mGycm Automated exposure control for dose reduction was used. TECHNIQUE: CT scan of the head and cervical spine are performed without contrast. FINDINGS: There is no acute intracranial hemorrhage, mass effect, or midline shift identified. Unremarkable bas al cisterns, sella and CP angles. Stable chronic fracture of the left orbital roof. Right high pariet al scalp hematoma/swelling with possible laceration. No definite acute calvarial bone fracture identi fied. Anterolisthesis of C3 over C4 and C4 over C5, likely degenerative and appreciated previously. No defi nite acute vertebral body collapse or acute displaced fracture. Unremarkable atlantoaxial and atlanto occipital articulations. No facet dislocation or significant subluxation. Degenerative changes of the cervical spine most evident at C5-6, C6-7 and C7-T1 levels with opposing endplate osteophytosis, degenerated discs and uncovertebral osteoarthropathy. Multilevel facet osteoa rthropathy is also noted. Spinal canal stenosis is seen at C5-6 and C6-7 levels. Right C5-6 and bilat eral C6-7 neural foraminal stenosis. No paraspinal lesion. IMPRESSION: 1. No acute intracranial posttraumatic sequela or acute calvarial bone fracture. Right high parietal scalp hematoma/swelling with possible laceration. 2. No acute traumatic bony injury of the cervical spine. Degenerative changes of cervical spine and o ther incidental findings as described above.
[2021-11-13 09:40] VITALS: BP 128/78; PULSE 90; RESP 16; TEMP 98.2
== END 2021-11-13 09:39 | disposition home or self-care (01) ==
LOC: EC 06:08
DX: S00.03XA Contusion of scalp, initial encounter (principal); E78.5 Hyperlipidemia, unspecified; E11.22 Type 2 diabetes mellitus with diabetic chronic kidney disease; N18.30 Chronic kidney disease, stage 3 unspecified; K21.9 Gastro-esophageal reflux disease without esophagitis; M79.7 Fibromyalgia; M19.90 Unspecified osteoarthritis, unspecified site; F41.9 Anxiety disorder, unspecified; F32.A Depression, unspecified; E07.9 Disorder of thyroid, unspecified; Z86.718 Personal history of other venous thrombosis and embolism; Z79.01 Long term (current) use of anticoagulants; Z79.890 Hormone replacement therapy; Z79.899 Other long term (current) drug therapy; Z88.0 Allergy status to penicillin; W01.10XA Fall on same level from slipping, tripping and stumbling with subsequent striking against unspecified object, initial encounter; Y92.002 Bathroom of unspecified non-institutional (private) residence as the place of occurrence of the external cause
CPT/HCPCS: 70450; 72125; 93005; 99284

== ENCOUNTER → 2022-05-07 | Outpatient (CLI) | payer MEDICARE ==
[2022-05-07 14:50] LABS: Creatinine,Urine Random 84.8 mg/dL; Protein/Creatinine Ratio,Urine 0.189
[2022-05-07 15:18] LABS: Appearance,Urine Cloudy (Clear); Bacteria,Urine Many /hpf; Bilirubin,Urine Negative (Negative); Blood,Urine Negative (Negative); Color,Urine Yellow; Glucose,Urine (UA) Negative (Negative); Hyaline Casts,Urine 16 /lpf (0-2); Ketones,Urine Negative (Negative); Leukocyte Esterase,Urine Moderate (Negative); Mucus,Urine Rare /hpf; Nitrite,Urine Negative (Negative); PH, Urine 5.5 (5.0-8.0); Protein,Urine Negative (Negative); RBC,Urine 1 /hpf (0-5); Specific Gravity,Urine 1.014 (1.001-1.035); Squamous Epithelial Cell,Urine <1 /hpf (0-4); Urobilinogen,Urine <2.0 mg/dL (<2.0); WBC,Urine 24 /hpf (0-5)
[2022-05-07 18:00] LABS: Basophils # (A) 0.07 X 10*3/uL (0.00-0.10); Basophils % (A) 0.7 %; Eosinophils # (A) 0.37 X 10*3/uL (0.04-0.35); Eosinophils % (A) 3.7 %; HCT 38.6 % (37.2-46.3); HGB 12.8 g/dL (12.0-15.0); Immature Grans, Automated 0.3 %; Lymphocytes # (A) 1.24 X 10*3/uL (0.90-5.00); Lymphocytes % (A) 12.4 %; MCH 30.8 pg (27.0-32.0); MCHC 33.2 g/dL (32.0-37.0); Mean Platelet Volume 10.1 fL (9.5-12.2); Monocytes # (A) 0.63 X 10*3/uL (0.20-1.00); Monocytes % (A) 6.3 %; NRBC Per 100 WBC 0 /100 WBCS (0.0-0.0); Neutrophils # (A) 7.68 X 10*3/uL (1.80-7.70); Neutrophils % (A) 76.6 %; Platelet Count 330 X 10*3/uL (140-440); RBC 4.15 X 10*6/uL (4.10-5.20); RDW 12.2 % (11.5-14.5); WBC 10.02 X 10*3/uL (4.50-10.00)
[2022-05-07 18:27] LABS: % Iron Saturation 10.71 (12.00-45.00); African American GFR (CKD) 42.2 (60.0-200.0); Anion Gap 15.7 mmol/L (10.00-18.00); BUN/Creat Ratio 14.93 Ratio (12.00-20.00); Blood Urea Nitrogen 20.9 mg/dL (9.0-27.0); Carbon Dioxide 27.3 mmol/L (20.0-27.5); Magnesium 1.6 mg/dL (1.5-2.4); Non-African American GFR(CKD) 36.4 (60.0-200.0); Phosphorus 3.4 mg/dL (2.4-5.1); Potassium 4.1 mmol/L (3.5-5.5); Uric Acid 6.9 mg/dL (2.9-7.7)
[2022-05-07 18:50] LABS: Albumin 4.3 g/dL (3.8-4.9); Ferritin 29.1 ng/mL (10.0-291.0)
== END | disposition home or self-care (01) ==
LOC: LABWHC1 11:59
PROVIDERS: ATTEND Nurse Practitioner Family
DX: N18.4 Chronic kidney disease, stage 4 (severe) (principal); E55.9 Vitamin D deficiency, unspecified; E21.3 Hyperparathyroidism, unspecified; M10.9 Gout, unspecified; N39.0 Urinary tract infection, site not specified; D64.9 Anemia, unspecified
CPT/HCPCS: 36415; 80048; 81001; 82040; 82306; 82570; 82728; 83540; 83550; 83735; 83970; 84100; 84156; 84443; 84550; 85025; 87086

== ENCOUNTER → 2022-09-17 | Outpatient (CLI) | payer MEDICARE ==
[2022-09-17 14:27] LABS: HCT 30.8 % (37.2-46.3); HGB 9.6 g/dL (12.0-15.0); MCH 26.5 pg (27.0-32.0); MCHC 31.2 g/dL (32.0-37.0); MCV 85.1 fL (80.0-97.0); Mean Platelet Volume 9.1 fL (9.5-12.2); NRBC Per 100 WBC 0 /100 WBCS (0.0-0.0); Platelet Count 348 X 10*3/uL (140-440); RBC 3.62 X 10*6/uL (4.10-5.20); RDW 13.1 % (11.5-14.5); WBC 10.76 X 10*3/uL (4.50-10.00)
[2022-09-17 14:45] LABS: African American GFR (CKD) 31.1 (60.0-200.0); Anion Gap 10.1 mmol/L (10.00-18.00); Blood Urea Nitrogen 24.4 mg/dL (9.0-27.0); Carbon Dioxide 29.5 mmol/L (20.0-27.5); Non-African American GFR(CKD) 26.9 (60.0-200.0); Potassium 4.5 mmol/L (3.5-5.5)
== END | disposition home or self-care (01) ==
LOC: LABPAT 10:16
PROVIDERS: ATTEND Internal Medicine Interventional Cardiology
DX: Z01.812 Encounter for preprocedural laboratory examination (principal); R06.02 Shortness of breath; I34.0 Nonrheumatic mitral (valve) insufficiency
CPT/HCPCS: 80051; 82565; 84520; 85027

== ENCOUNTER 2022-09-19 07:56 | Day surgery (SDC) | payer MEDICARE ==
[2022-09-19] MEDS ORDERED: VERAPAMIL 2.5 MG/ML 2 ML AMP ONE (08:14)
[2022-09-19 08:17] LABS: Glucose,Whole Blood 142 mg/dL (70-110)
[2022-09-19] MEDS: SODIUM CHLORIDE 0.9% 1,000 ML IV SCH (08:21)
[2022-09-19] MEDS ORDERED: fentaNYL (PF) 50 MCG/ML 2 ML AMP ONE (08:30)
[2022-09-19 08:32] LABS: Basophils # (A) 0.1 k/uL (0-0.2); Basophils % (A) 1 %; Eosinophils # (A) 0.4 k/uL (0-0.7); Eosinophils % (A) 5 %; HCT 31.7 % (34.0-46.0); HGB 10.2 gm/dL (11.4-16.0); Hypochromasia Marked; Lymphocytes # (A) 1.5 k/uL (1.0-4.8); Lymphocytes % (A) 16 %; MCH 27.4 pg (25.0-35.0); MCHC 32.4 g/dL (31.0-37.0); MCV 84.6 fL (80.0-100.0); Monocytes # (A) 0.5 k/uL (0-1.0); Monocytes % (A) 6 %; Neutrophils # (A) 6.4 k/uL (1.3-7.7); Neutrophils % (A) 71 %; Platelet Count 344 k/uL (150-450); Poikilocytosis Slight; RBC 3.75 m/uL (3.80-5.40); RDW 13.3 % (11.5-15.5); WBC 9.1 k/uL (3.8-10.6)
[2022-09-19] MEDS ORDERED: IV FLUID CONTINUATION 1,000 ML IV ONE (08:36)
[2022-09-19] MEDS ORDERED: BENZOCAINE SPRAY 1 CAN TOPICAL ONE (08:44)
[2022-09-19] MEDS: fentaNYL (PF) 50 MCG/ML 2 ML AMP IV ONE ×3 (08:45→08:53)
[2022-09-19] MEDS ORDERED: MIDAZOLAM 2 MG/2 ML VIAL IVP ONE (08:45)
[2022-09-19] MEDS: MIDAZOLAM 2 MG/2 ML VIAL IV ONE ×2 (08:48→08:50)
[2022-09-19] MEDS ORDERED: MIDAZOLAM 2 MG/2 ML VIAL IV ONE (08:53)
--- NOTE | 2022-09-19 09:05 | P.PCN ---
Date of Procedure: 09/19/22 Operative Findings: TRANSESOPHAGEAL ECHOCARDIOGRAM FOOD CONSULTANT: JAIDEN SUMMERS MD, RPVI INDICATION: Aortic and mitral insufficiency SEDATION: Conscious sedation COMPLICATION: None LEVEL OF SEDATION Moderate with sedation length of 12 minutes PROCEDURE DESCRIPTION: After obtaining an informed consent, the patient was brought to transesophageal echocardiogram room. Pulse oximetry and heart monitors were attached to the patient. The patient throat was sprayed using lidocaine. The patient was turned into left lateral position. After that a bite guard was placed. After an appropriate conscious sedation was initiated, the transesophageal echocardiogram was advanced through a bite guard into the mid esophagus. A 2-D echocardiogram images, color Doppler images, continuous wave images, pulse-wave images, of various cardiac structure were performed. After that the transesophageal echocardiogram probe was advanced into the stomach and fixed to obtain transgastric view was. The probe was brought into the mid esophagus. Inter-atrial septum was interrogated using 2D images, color Doppler images, and then contrast study. After that transesophageal echocardiogram was withdrawn out and upon withdrawing the descending thoracic aorta all the way up to the arch was evaluated. FINDING: The left ventricular dimension and systolic function appeared to be within normal limits patient ejection fraction appears to be in the range of 55-60%. The right ventricle appeared to be of normal size and function. The left atrium and right atrium appears to be within normal limits for dimension. The left atrial appendage appeared to be free from any thrombus. The interatrial septum appeared to be intact. The aortic valve is trileaflet valve. The valve is thickened and calcified with no stenosis but moderate insufficiency with the mitral valve seems to be also thickened with moderate mitral regurgitation. Normal tricuspid valve and pulmonic valve. No evidence of pericardial effusion identified CONCLUSION: 1. Normal biventricular dimension and systolic function. The left ventricle systolic function is 55-60% with mild concentric LVH 2. Normal left atrial appendage. Intact interatrial septum 3. Aortic sclerosis with no stenosis and moderate insufficiency 4. Thickened mitral valve leaflets with moderate mitral regurgitation 5. Normal tricuspid valve and pulmonic valve 6. No evidence of pericardial effusion
[2022-09-19] MEDS ORDERED: LIDOCAINE 1% INJ 10MG/ML (5 ML VIAL-PF) SQ ONE (09:13)
[2022-09-19] MEDS ORDERED: VERAPAMIL 2.5 MG/ML 2 ML AMP INTRAARTER ONE (09:14)
[2022-09-19] MEDS ORDERED: HEPARIN SODIUM 1,000 UN/ML (10ML VL) ONE (09:31)
[2022-09-19] MEDS: HEPARIN SODIUM 1,000 UN/ML (10ML VL) IVP ONE ×3 (09:33→10:36)
[2022-09-19] MEDS ORDERED: HYDROmorphone 0.5 MG/0.5 ML SYRINGE IVP ONE (09:52)
[2022-09-19] MEDS ORDERED: LORazepam 0.5 MG TAB PO PRN (10:24)
[2022-09-19] MEDS ORDERED: NAPROXEN 250 MG TAB PO PRN (10:24)
[2022-09-19] MEDS ORDERED: MAG HYDROX/AL HYDROX/SIMETH 30 ML CUP PO PRN (10:26)
[2022-09-19] MEDS ORDERED: ATROPINE SULFATE 0.1 MG/ML 10ML SYRINGE IV PRN (10:26)
[2022-09-19] MEDS ORDERED: NITROGLYCERIN SL TABS 0.4 MG TAB SUBLINGUAL PRN (10:26)
[2022-09-19] MEDS ORDERED: RX INFO: IV CONTRAST WAS GIVEN 1 EACH MISC MISCELLANE PRN (10:26)
[2022-09-19] MEDS ORDERED: IOPAMIDOL-370 125ML BTL INJ ONE (10:26)
[2022-09-19] MEDS ORDERED: ZOLPIDEM 5 MG TAB PO PRN (10:26)
[2022-09-19] MEDS ORDERED: SODIUM CHLORIDE 0.9% 1,000 ML in EMPTY BAG 1 BAG IV SCH (10:30)
--- NOTE | 2022-09-19 10:32 | P.PCN ---
Date of Procedure: 09/19/22 Operative Findings: CARDIAC CATHETERIZATION AND PERCUTANEOUS CORONARY INTERVENTION PERFORMING PHYSICIAN: Riccardo Swenson MD, [facility] PROCEDURE PERFORMED: 1. Selective right and left coronary angiogram 2. Left heart catheterization 3. Successful stenting of mid LAD using 2.75 x 18 mm Xience POOJA which with an excellent angiographic results with adjunctive use of intravascular ultrasound INDICATION: Shortness of breath with exertion concerning for angina in this 77-year-old female patient with us have diabetes and hypertension and dyslipidemia COMPLICATION: None APPROACH: Right radial approach LEVEL OF SEDATION: Moderate with the sedation time off 67 minutes PROCEDURE DESCRIPTION: After obtaining an informed consent the patient was brought to the cardiac dentures lab technician. The right radial artery was cannulated using micropuncture technique, the micro-rupture wire passed easily then I placed a 6-Gabonese sheath. I gave the patient 2 mg of verapamil intra-arterial and 6000 use of heparin intravenous. Selective right and left coronary angiogram performed using JR4 and JL 3.5 catheter. Left heart catheterization was performed using 6-Gabonese pigtail catheter. After that I did intervene on the LAD. The procedure was completed without any complication SELECTIVE CORONARY ANGIOGRAM: The right coronary artery: Large caliber vessel and a dominant vessel. It has mild disease only. Left main: Large caliber vessel. Its angiographically normal. The left circumflex: Small to medium caliber vessel nondominant vessel was mild disease only. The left anterior descending artery: Large caliber vessel with the proximal LAD appears to be angiographically normal. Gives rise into a large diagonal branch which seems to have mild disease only. The mid LAD has long tubular lesion appears to be calcified and critical in the range of 99.9%. Gives rise into a second diagonal branch which has mild disease only. The LAD reach the apex. HEMODYNAMICS: The LVEDP was 12 mmHg was no significant gradient across aortic valve PCI OF THE LAD: Ticor regulation was initiated using heparin with continuous ACT monitoring. Engaging the left main was performed using JL 3.5 guiding catheter. I did wire the LAD using 2 wires and both where whisper wire. Balloon angioplasty was initially performed using 2.5 mm balloon but the balloon did not open completely. For that reason I decided to go with a smaller balloon and higher pressure so I used 2.0 mm noncompliant balloon. Attempting advancing stent was unsuccessful. I decided to go with a bigger noncompliant balloon and that was 2.5 mm NC balloon. Multiple PTCA ballooning performed using the NC balloon. Finally I was able to advance 2.75 x 18 mm stent where the stent was positioned under fluoroscopy guidance and deployed under its nominal pressure. The following angiogram showed excellent angiographic results and the procedure was completed without any complications CONCLUSION: Critical disease involving the mid LAD. I did perform successful stenting of the LAD POSTPROCEDURE MANAGEMENT: #1 dual antiplatelet therapy using aspirin and Plavix for at least 6 months #2 aggressive cholesterol control #3 follow-up with the patient
[2022-09-19 11:38] VITALS: BMI 27.9
[2022-09-19] MEDS: GABAPENTIN 300 MG CAP PO SCH ×2 (12:45→18:00)
[2022-09-19 16:29] VITALS: RESP 16
[2022-09-19 20:12] LABS: Glucose,Whole Blood 136 mg/dL (70-110)
[2022-09-20 02:58] VITALS: PULSE 78
[2022-09-20] MEDS: GABAPENTIN 300 MG CAP PO SCH (06:08)
[2022-09-20] MEDS: SODIUM CHLORIDE 0.9% 1,000 ML IV SCH (06:09)
[2022-09-20 06:14] LABS: African American GFR (CKD) 41 (>60 ml/min/1.73 sqM); Anion Gap 5 mmol/L; Blood Urea Nitrogen 23 mg/dL (7-17); Calcium 8.4 mg/dL (8.4-10.2); Carbon Dioxide 30 mmol/L (22-30); Chloride 104 mmol/L (98-107); Glucose 106 mg/dL (74-99); Non-African American GFR(CKD) 35 (>60 ml/min/1.73 sqM); Potassium 4.1 mmol/L (3.5-5.1); Sodium 139 mmol/L (137-145)
[2022-09-20 06:24] LABS: Glucose,Whole Blood 120 mg/dL (70-110)
[2022-09-20] MEDS ORDERED: LEVOTHYROXINE 100 MCG TAB PO SCH (06:30)
[2022-09-20 07:30] VITALS: BP 102/52; TEMP 98
[2022-09-20] MEDS ORDERED: DULoxetine HCL 60 MG CAPSULE.DR PO SCH (09:00)
[2022-09-20] MEDS ORDERED: amLODIPine 5 MG TAB PO SCH (09:00)
[2022-09-20] MEDS ORDERED: CYANOCOBALAMIN 500 MCG TAB PO SCH (09:00)
[2022-09-20] MEDS ORDERED: ESCITALOPRAM 10 MG TAB PO SCH (09:00)
[2022-09-20] MEDS ORDERED: ATORVASTATIN 10 MG TAB PO SCH (09:00)
[2022-09-20] MEDS ORDERED: CHOLECALCIFEROL 25 MCG (1000 IU) TABLET PO SCH (09:00)
[2022-09-20] MEDS ORDERED: FUROSEMIDE 40 MG TAB PO SCH (09:00)
[2022-09-20] MEDS ORDERED: ASPIRIN 325 MG TAB PO SCH (09:00)
[2022-09-20] MEDS ORDERED: CLOPIDOGREL 75 MG TAB PO SCH (09:00)
[2022-09-20] MEDS ORDERED: PANTOPRAZOLE 40 MG TABLET PO SCH (09:00)
[2022-09-20] MEDS ORDERED: PATIENT'S OWN (Semaglutide [Rybelsus] 3 MG Tablet) PO SCH (09:00)
== END 2022-09-20 10:16 | disposition home or self-care (01) ==
LOC: CATHCVL 07:56 → 6NMEDSUR 10:23 → CATHCVL 09-20 10:16
PROVIDERS: ATTEND Internal Medicine Interventional Cardiology
DX: I08.0 Rheumatic disorders of both mitral and aortic valves (principal); I25.10 Atherosclerotic heart disease of native coronary artery without angina pectoris; E11.22 Type 2 diabetes mellitus with diabetic chronic kidney disease; I12.9 Hypertensive chronic kidney disease with stage 1 through stage 4 chronic kidney disease, or unspecified chronic kidney disease; N18.30 Chronic kidney disease, stage 3 unspecified; E78.5 Hyperlipidemia, unspecified; Z79.84 Long term (current) use of oral hypoglycemic drugs; Z79.01 Long term (current) use of anticoagulants; Z88.0 Allergy status to penicillin; Z79.811 Long term (current) use of aromatase inhibitors; Z79.52 Long term (current) use of systemic steroids; Z79.891 Long term (current) use of opiate analgesic; Z79.51 Long term (current) use of inhaled steroids; Z79.899 Other long term (current) drug therapy; Z95.5 Presence of coronary angioplasty implant and graft; Z82.49 Family history of ischemic heart disease and other diseases of the circulatory system; Z98.890 Other specified postprocedural states
CPT/HCPCS: 92928; 93312; 93320; 93325; 93458; 80048; 82565; 85025; C9600; C1769 ×5; C1887; C1894; C1725 ×4; C1753; C1874; J2250; J2001; J3010; J1644; J1170; Q9967

== ENCOUNTER 2023-01-12 09:28 | Emergency (ER) | payer MEDICARE ==
[2023-01-12 09:49] VITALS: RESP 18; TEMP 98
[2023-01-12] MEDS ORDERED: MORPHINE SULFATE 2 MG/ML SYRINGE IM STA (09:57)
[2023-01-12] MEDS ORDERED: MORPHINE SULFATE 2 MG/ML SYRINGE IVP STA (10:02)
--- NOTE | 2023-01-12 10:18 | ED ---
Fall HPI - General Chief Complaint: Fall Stated Complaint: Knee Pain Time Seen by Provider: 01/12/23 09:49 Source: patient, RN notes reviewed Mode of arrival: EMS Limitations: no limitations - History of Present Illness Initial Comments: This is a 77-year-old female who presents to the emergency department for right- sided knee pain. Patient states that she fell earlier today. She was trying to avoid her dog and subsequently tripped. When she fell, she landed on her right leg. She is on Plavix. Currently has the majority of the pain just below the right knee. Denies hitting her head or any loss of consciousness. She was given 100 mcg of fentanyl on route by EMS with only minor relief in symptoms. Denies any fevers, chills, sore throat, cough, dyspnea, chest pain, palpitations, abdominal pain, nausea, vomiting, diarrhea, back pain, or headaches. MD Complaint: fall Fall From: standing Place Fall Occurred: home Loss of Consciousness: none - Related Data Home Medications Medication Instructions Recorded Confirmed LORazepam [Ativan] 0.5 mg PO BID PRN 10/15/14 10/17/22 Simvastatin [Zocor] 20 mg PO DAILY 10/15/14 10/17/22 Levothyroxine Sodium [Synthroid] 100 mcg PO DAILY 05/30/16 10/17/22 Gabapentin [Neurontin] 300 mg PO TID-W/MEALS 04/10/20 10/17/22 amLODIPine BESYLATE 5 mg PO DAILY 03/28/21 10/17/22 Cholecalciferol [Vitamin D3 (25 50 mcg PO DAILY 09/18/22 10/17/22 Mcg = 1000 Iu)] Cyanocobalamin (Vitamin B-12) 1,000 mcg PO DAILY 09/18/22 10/17/22 [Vitamin B-12] DULoxetine HCL [Cymbalta] 60 mg PO DAILY 09/18/22 10/17/22 Escitalopram [Lexapro] 10 mg PO DAILY 09/18/22 10/17/22 Furosemide [Lasix] 40 mg PO DAILY 09/18/22 10/17/22 Omeprazole [PriLOSEC] 20 mg PO DAILY 09/18/22 10/17/22 Semaglutide [Rybelsus] 3 mg PO DAILY 09/18/22 10/17/22 oxyCODONE HCL 5 mg PO TID 09/18/22 10/17/22 Aspirin 325 mg PO DAILY PRN 09/19/22 10/17/22 Previous Rx's Medication Instructions Recorded Clopidogrel Bisulfate [Plavix] 75 mg PO DAILY #90 tab 04/06/20 Allergies Allergy/AdvReac Type Severity Reaction Status Date / Time Penicillins Allergy SKIN TURNS Verified 10/17/22 08:36 RED Review of Systems ROS Statement: Those systems with pertinent positive or pertinent negative responses have been documented in the HPI. ROS Other: All systems not noted in ROS Statement are negative. Past Medical History Past Medical History: Cancer, Diabetes Mellitus, Deep Vein Thrombosis (DVT), Fibromyalgia, GERD/Reflux, Hyperlipidemia, Osteoarthritis (OA), Renal Disease, Thyroid Disorder Additional Past Medical History / Comment(s): uterine ca 50 years ago sx only.past falls, past c2 fx no sx but wore a brace , glac[place] eyes, uti's,. dizziness at times and occ when sitting will. blank out for few min, neuropathy feet,legs,and hands. stage 3 kidney failure History of Any Multi-Drug Resistant Organisms: None Reported Past Surgical History: Adenoidectomy, Back Surgery, Bariatric Surgery, Naina cystectomy, Hysterectomy, Tonsillectomy Additional Past Surgical History / Comment(s): loop monitor implanted 03-30-18 Past Anesthesia/Blood Transfusion Reactions: No Reported Reaction Additional Past Anesthesia/Blood Transfusion Reaction / Comment(s): no hx. of blood transfusion reaction Type of Cardiac Device: Loop Device Placement Date:: 03/30/18 Past Psychological History: Anxiety, Depression Smoking Status: Never smoker - Past Family History Brother(s) Family Medical History: Cancer Mother Family Medical History: Dementia Father Family Medical History: Myocardial Infarction ([place]) General Exam Limitations: no limitations General appearance: alert, in no apparent distress Head exam: Present: atraumatic, normocephalic, normal inspection Respiratory exam: Present: normal lung sounds bilaterally. Absent: respiratory distress, wheezes, rales, rhonchi, stridor Cardiovascular Exam: Present: regular rate, normal rhythm, normal heart sounds. Absent: systolic murmur, diastolic murmur, rubs, gallop, clicks Extremities exam: Present: other (Tenderness and swelling over the right patella and just inferior to the right patella more so medial. 2+ DP and PT pulses. Capillary refill less than 1 second.) Neurological exam: Present: alert, oriented X3, CN II-XII intact Psychiatric exam: Present: normal affect, normal mood Skin exam: Present: warm, dry, intact, normal color. Absent: rash Course Vital Signs 01/12/23 01/12/23 09:44 12:30 Temperature 98 F Pulse Rate 107 H 92 Respiratory 18 18 Rate Blood Pressure 120/71 105/60 O2 Sat by Pulse 97 95 Oximetry Medical Decision Making - Medical Decision Making This is a 77-year-old female who presents to the emergency department for right knee pain after a fall. Was pt. sent in by a medical professional or institution? @ -No Did you speak to anyone other than the patient for history? @ -No Did you review nursing and triage notes? @ -Yes, and I agree, it is accurate with regards to the patient's symptoms. Were old charts reviewed? @ -No Differential Diagnosis? @ -Differential Knee Injury: Fracture, dislocation, sprain, contusion, meniscus injury, ACL/LCL/MCL/PCL injury, this is not meant to be an all-inclusive list. X-rays interpreted by me (1pt min.)? @ -X-ray of the right femur, right knee, and right tib-fib obtained. My interpretation identifies no acute fractures. What testing was considered but not performed? (CT, X-rays, U/S, labs)? Why? @ -None What meds were considered but not given? Why? @ -None Did you discuss the management of the patient with other professionals? @ -No Did you reconcile home meds? @ -No Was smoking cessation discussed for >3mins.? @ -No Was critical care preformed (if so, how long)? @ -No Were there social determinants of health that impacted care today? How? (Homelessness, low income, unemployed, alcoholism, drug addiction, transportation, low edu. Level, literacy, decrease access to med. care, [place] [facility], rehab)? @ -No Was there de-escalation of care discussed even if they declined? (Discuss DNR or withdrawal of care, Hospice)? @ -No What co-morbidities impacted this encounter? (DM, HTN, Smoking, COPD, CAD, Cancer, CVA, Hep., AIDS, mental health diagnosis, sleep apnea, morbid obesity)? @ -Fibromyalgia, osteoarthritis Was patient admitted / discharged? @ -Discharged. X-rays of the right femur, right knee, and right tib-fib obtained. Findings reveal prepatellar soft tissue edema. There are no acute fractures. Patient was able to ambulate on her own with her walker, which is what she uses at home. She was also given a dose of oxycodone, which is what she takes at home for pain. States that this effectively managed her symptoms. She is instructed to apply ice for 15-20 minutes every 2-3 hours. I also advi sed elevation and compression. She'll continue with her at home pain medication and follow-up with her primary care provider for reevaluation of symptoms. Undiagnosed new problem with uncertain prognosis? @ -None Drug Therapy requiring intensive monitoring for toxicity (Heparin, Nitro, Insulin, Cardizem)? @ -None Were any procedures done? @ -None Diagnosis/symptom? @ -Fall, right knee pain Acute, or Chronic, or Acute on Chronic? @ -Acute Uncomplicated (without systemic symptoms) or Complicated (systemic symptoms)? @ -Uncomplicated Side effects of treatment? @ -None Exacerbation, Progression, or Severe Exacerbation] @ -Not applicable Poses a threat to life or bodily function? @ -No Return precautions reviewed in depth, the patient is instructed to return to the emergency department with any new, worsening, or concerning symptoms. Patient verbalized understanding. This case was discussed in detail with the attending ED physician, Dr. Vega. Presentation, findings, and treatment plan discussed in detail as well. - Radiology Data Radiology results: report reviewed, image reviewed Disposition Clinical Impression: Fall, Pain of right knee after injury Disposition: HOME SELF-CARE Instructions (If sedation given, give patient instructions): Fall Prevention for Older Adults (ED), Knee Pain (ED) Additional Instructions: Return to the emergency department with any new, worsening, or concerning sympto ms. Apply ice for 15-20 minutes every 2-3 hours and keep the leg elevated. Continue to take your pain medication as prescribed. Make sure that you move around slowly, especially as you are recovering, to reduce your risk of additional falls. Follow up with your primary care provider in 1-2 days. Is patient prescribed a controlled substance at d/c from ED?: No Referrals: Herberth Roe DO [Primary Care Provider] - 1-2 days
--- NOTE | 2023-01-12 10:31 | XR ---
EXAMINATION TYPE: XR knee complete RT, XR tibia fibula RT, XR femur RT DATE OF EXAM: 01/12/2023 CLINICAL HISTORY: pain TECHNIQUE: AP and lateral views right femur, 3 views right knee and 2 views of the right tibia and fi bula. COMPARISON: None. FINDINGS: There is no acute fracture/dislocation. The tri-compartment joint spaces appear mildly na rrowed. Superior patellar spur. Moderate prepatellar soft tissue edema. Patella theo. IMPRESSION: There is no acute fracture or dislocation. ICD 10 NO FRACTURE, INITIAL EVALUATION
[2023-01-12] MEDS ORDERED: oxyCODONE-APAP 5-325MG 1 EACH TAB PO STA (11:02)
[2023-01-12 12:32] VITALS: BP 105/60; PULSE 92
== END 2023-01-12 12:31 | disposition home or self-care (01) ==
LOC: EC 09:28
DX: S89.91XA Unspecified injury of right lower leg, initial encounter (principal); F41.9 Anxiety disorder, unspecified; F32.A Depression, unspecified; E11.9 Type 2 diabetes mellitus without complications; E78.5 Hyperlipidemia, unspecified; K21.9 Gastro-esophageal reflux disease without esophagitis; M19.90 Unspecified osteoarthritis, unspecified site; E07.9 Disorder of thyroid, unspecified; Z79.899 Other long term (current) drug therapy; Z79.890 Hormone replacement therapy; Z88.0 Allergy status to penicillin; W01.0XXA Fall on same level from slipping, tripping and stumbling without subsequent striking against object, initial encounter
CPT/HCPCS: 73552; 73590; 73562; 99284; 96374; J2270

== ENCOUNTER → 2023-01-24 | Outpatient (CLI) | payer MEDICARE ==
[2023-01-25 01:38] LABS: Basophils # (A) 0.06 X 10*3/uL (0.00-0.10); Basophils % (A) 0.6 %; Eosinophils # (A) 0.34 X 10*3/uL (0.04-0.35); Eosinophils % (A) 3.3 %; HCT 33.7 % (37.2-46.3); HGB 10.1 g/dL (12.0-15.0); Immature Grans, Automated 0.5 %; Lymphocytes # (A) 1.61 X 10*3/uL (0.90-5.00); Lymphocytes % (A) 15.4 %; MCH 29.9 pg (27.0-32.0); MCV 99.7 fL (80.0-97.0); Mean Platelet Volume 9.2 fL (9.5-12.2); Monocytes # (A) 0.69 X 10*3/uL (0.20-1.00); Monocytes % (A) 6.6 %; NRBC Per 100 WBC 0 /100 WBCS (0.0-0.0); Neutrophils # (A) 7.71 X 10*3/uL (1.80-7.70); Neutrophils % (A) 73.6 %; Platelet Count 385 X 10*3/uL (140-440); RBC 3.38 X 10*6/uL (4.10-5.20); RDW 13.8 % (11.5-14.5); WBC 10.46 X 10*3/uL (4.50-10.00)
[2023-01-25 01:50] LABS: Appearance,Urine Clear (Clear); Bilirubin,Urine Negative (Negative); Blood,Urine Negative (Negative); Color,Urine Yellow (Yellow); Ketones,Urine Negative (Negative); Nitrite,Urine Negative (Negative); PH, Urine 6.5 (5.0-8.0); Specific Gravity,Urine 1.015 (1.001-1.030)
[2023-01-25 01:59] LABS: % Iron Saturation 20.08 (12.00-45.00); African American GFR (CKD) 42.6 (60.0-200.0); Anion Gap 12.2 mmol/L (10.00-18.00); BUN/Creat Ratio 20.43 Ratio (12.00-20.00); Blood Urea Nitrogen 28.4 mg/dL (9.0-27.0); Calcium 9.3 mg/dL (8.7-10.3); Carbon Dioxide 29.6 mmol/L (20.0-27.5); Non-African American GFR(CKD) 36.7 (60.0-200.0); Phosphorus 3.4 mg/dL (2.4-5.1); Potassium 4.1 mmol/L (3.5-5.5); Uric Acid 7.6 mg/dL (2.9-7.7)
[2023-01-25 02:12] LABS: Ferritin 71.1 ng/mL (10.0-291.0)
[2023-01-25 04:34] LABS: Urine Creatinine 67.5 mg/dL (28.0-217.0)
== END | disposition home or self-care (01) ==
LOC: LABWHC1 14:28
PROVIDERS: ATTEND Internal Medicine Gastroenterology
DX: E55.9 Vitamin D deficiency, unspecified (principal); K92.1 Melena; N25.81 Secondary hyperparathyroidism of renal origin; M10.9 Gout, unspecified; N39.0 Urinary tract infection, site not specified; N18.4 Chronic kidney disease, stage 4 (severe); D63.1 Anemia in chronic kidney disease; R80.9 Proteinuria, unspecified
CPT/HCPCS: 36415; 80048; 81003; 82040; 82043; 82306; 82570; 82728; 83540; 83550; 83735; 83970; 84100; 84550; 85025

== ENCOUNTER 2023-05-07 08:43 | Day surgery (SDC) | payer MEDICARE ==
[2023-05-01 14:32] VITALS: BMI 25.7
[~2023-05-07 08:43] MED LIST changes: -CLINDAMYCIN 900 MG in DEXTROSE 5% IN WATER 50 ML IVPB PRN; +LACTATED RINGERS 1,000 ML IV SCH; +LIDOCAINE 1% (10MG/ML) FOR IV START INTRADERMA PRN; -SODIUM CHLORIDE 0.9% 1,000 ML IV SCH
[2023-05-07 09:13] VITALS: TEMP 98.5
[2023-05-07 09:27] LABS: Glucose,Whole Blood 110 mg/dL (70-110)
[2023-05-07] MEDS ORDERED: PROPOFOL 10 MG/ML 20 ML VIAL IV ONE (09:39)
[2023-05-07] MEDS ORDERED: LIDOCAINE 2% INJ 20 MG/ML (2 ML VIAL) ONE (09:39)
--- NOTE | 2023-05-07 10:09 | P.PCN ---
Date of Procedure: 05/07/23 Procedure(s) Performed: Brief history: Patient is a pleasant 78-year-old white female scheduled for an elective upper endoscopy as well as colonoscopy as a part of evaluation of iron deficiency anemia Procedure performed: Esophagogastroduodenoscopy with biopsy Colonoscopy with snare polypectomy, biopsy and tattooing with Nanette ink Preoperative diagnosis: Iron deficiency anemia Anesthesia: [facility] Procedure: After informed consent was obtained from the patient was brought into the endoscopy unit and IV sedation was administered by anesthesia under continuous monitoring. Initially upper endoscopy was done. The Olympus GF 160 video endoscope was inserted inserted into the mouth and esophagus intubated without any difficulty and was gradually advanced into the stomach and duodenum and carefully examined. The bulb and second part of the duodenum appeared normal. The scope was then withdrawn into the stomach adequately insufflated with air and upon careful examination the antrum had multiple scattered erosions and biopsies were done from this area. Mucosa of the body, cardia and fundus aleena eared normal. . There was evidence of gastric sleeve surgery noted. The scope was then withdrawn into the esophagus. The GE junction was located at 38 cm to the incisors. It appeared regular with no erythema erosions or ulcerations. Rest of the esophagus appeared normal. Patient tolerated the procedure well. At this time the patient continued to remain sedation. Initial digital rectal examination was normal. Olympus CF 160 video colonoscope was then inserted into the rectum and gradually advanced to the cecum without any difficulty. Careful examination was performed as the scope was gradually being withdrawn. The prep was excellent. The cecum, a 5 limited polyp removed by snare polyp rectum he. The appeared normal. In the proximal transverse colon just distal to the hepatic flexure there was a semicircumferential ulcerated mass identified and multiple biopsies were done from this area. Following this tattooing was performed with Nanette ink. In the descending colon there was a 1 cm polyp removed by snare polypectomy. Rest of the descending colon, sigmoid colon and rectum appeared normal. Retroflexion was performed in the rectum and no lesions were noted. Patient tolerated the procedure well. Impression: 1. Upper endoscopy revealed antral erosive gastritis and evidence of gastric sleeve surgery. 2. colonoscopy revealed a semicircumferential ulcerated proximal transverse colon mass status post multiple biopsies followed by tattooing with Nanette ink, 5 mm cecal polyp and a 1 cm descending colon polyp status post polypectomy Recommendations: Findings of this examination were discussed with the patient as well as her family. She was advised to follow with the biopsy results. She'll be scheduled for a CT of the abdomen and pelvis and she'll be seen in office in one week.
[2023-05-07 10:15] VITALS: PULSE 75
[2023-05-07 10:30] VITALS: BP 96/58; RESP 16
== END 2023-05-07 11:17 | disposition home or self-care (01) ==
LOC: ORWHC2ENDO 08:43
PROVIDERS: ATTEND Internal Medicine Gastroenterology
DX: C18.4 Malignant neoplasm of transverse colon (principal); K29.50 Unspecified chronic gastritis without bleeding; D12.0 Benign neoplasm of cecum; D12.4 Benign neoplasm of descending colon; E78.5 Hyperlipidemia, unspecified; D50.9 Iron deficiency anemia, unspecified; E07.9 Disorder of thyroid, unspecified; I12.9 Hypertensive chronic kidney disease with stage 1 through stage 4 chronic kidney disease, or unspecified chronic kidney disease; N18.9 Chronic kidney disease, unspecified; I25.10 Atherosclerotic heart disease of native coronary artery without angina pectoris; M19.90 Unspecified osteoarthritis, unspecified site; M79.7 Fibromyalgia; K21.9 Gastro-esophageal reflux disease without esophagitis; Z79.82 Long term (current) use of aspirin; Z79.899 Other long term (current) drug therapy; Z88.0 Allergy status to penicillin; Z98.84 Bariatric surgery status; Z79.02 Long term (current) use of antithrombotics/antiplatelets; Z79.890 Hormone replacement therapy; Z95.5 Presence of coronary angioplasty implant and graft; Z86.718 Personal history of other venous thrombosis and embolism
CPT/HCPCS: 88305; 45380; 45385; 43239; 45381; J2704; J2001

== ENCOUNTER → 2023-05-12 | Outpatient (CLI) | payer MEDICARE, OTHER ==
[2023-05-12 17:50] LABS: African American GFR (CKD) 62 (>60 ml/min/1.73 sqM); Blood Urea Nitrogen 21 mg/dL (7-17); Non-African American GFR(CKD) 54 (>60 ml/min/1.73 sqM)
--- NOTE | 2023-05-12 19:32 | CT ---
EXAMINATION TYPE: CT abdomen pelvis w con CT DLP: 488 mGycm, Automated exposure control for dose reduction was used. 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 Sagittal and coronal reformats were created on a [employer] workstation. Contrast used:75cc mL of Isovue 300 with IV Contrast, (none if empty) Oral contrast used: with Oral Contrast (none if empty) FINDINGS: LOWER CHEST: There are coronary artery cusp patient's present. ABDOMEN LIVER: Unremarkable GALLBLADDER AND BILE DUCTS: The gallbladder is not visualized and may be surgically absent. PANCREAS: Unremarkable. SPLEEN: Unremarkable. ADRENAL GLANDS: Unremarkable. KIDNEYS AND URETERS: No evidence of hydronephrosis or renal calculus. The ureters are unremarkable. PELVIS BLADDER: Incompletely distended but grossly unremarkable. REPRODUCTIVE: Unremarkable. ABDOMEN & PELVIS STOMACH AND BOWEL: Short segment of asymmetric wall thickening up to 8 mm in the transverse colon axi al image series 3 image 25 and another area medially downstream likely representing peristalsis serie s 3 image 39. Moderate stool burden throughout the colon worse in the upstream colon from these focal strictures. The appendix not visualized and may be surgically absent. PERITONEUM/RETROPERITONEUM: No evidence of pneumoperitoneum or free fluid. VASCULATURE: Mild atherosclerotic calcifications are present throughout the abdominal aorta and its b ranches. No evidence of aortic aneurysm. Bilateral common iliac vein stents are present and appear pa tent. MUSCULOSKELETAL: No acute osseous abnormalities. Mild disc degeneration changes are present throughou t the thoracolumbar spine. Fixation fracture L4-L5 hardware appears intact. LYMPH NODES: No gross evidence for lymphadenopathy. SOFT TISSUE/ABDOMINAL WALL: Unremarkable IMPRESSION: Focal transverse colon wall thickening with increased stool upstream. Findings are suspicious for mal ignancy until proven otherwise. No evidence for lymphadenopathy at this time to suggest metastatic di sease. A Yellow level critical message alert has been initiated for Jennifer Maurice MD via the [employer] Critical Results System on 05/12/2023 7:30 PM. This message alert has been sent to Mayra Peña via the preferences provided by the clinician for the receipt of Radiology Critical Findings. Ombu ID [id number].
== END | disposition home or self-care (01) ==
LOC: RADCTMAIN 16:56
PROVIDERS: ATTEND Internal Medicine Gastroenterology
DX: C18.4 Malignant neoplasm of transverse colon (principal); K63.89 Other specified diseases of intestine
CPT/HCPCS: 82565; 84520; 74177; 36415; Q9967

== ENCOUNTER → 2023-05-28 | Outpatient (CLI) | payer MEDICARE, OTHER ==
[2023-05-29 02:28] LABS: Basophils % (A) 1.1 %; Eosinophils # (A) 0.23 X 10*3/uL (0.04-0.35); Eosinophils % (A) 2.4 %; HCT 40.5 % (37.2-46.3); Lymphocytes # (A) 1.63 X 10*3/uL (0.90-5.00); Lymphocytes % (A) 17.2 %; MCH 29.6 pg (27.0-32.0); MCHC 32.1 d/dL (32.0-37.0); MCV 92.3 FL (80.0-97.0); Mean Platelet Volume 9.8 FL (9.5-12.2); Monocytes # (A) 0.72 X 10*3/uL (0.20-1.00); Monocytes % (A) 7.6 %; NRBC Per 100 WBC 0 X 10*3/uL (0.00-0.01); Neutrophils # (A) 6.79 X 10*3/uL (1.80-7.70); Neutrophils % (A) 71.5 %; Platelet Count 368 X 10*3/uL (140-440); RBC 4.39 X 10*6/uL (4.10-5.20); RDW 13.2 % (11.5-14.5); WBC 9.49 X 10*3/uL (4.50-10.00)
[2023-05-29 02:30] LABS: Appearance,Urine Clear (Clear); Bilirubin,Urine Negative (Negative); Blood,Urine Trace (Negative); Color,Urine Yellow (Yellow); Ketones,Urine Negative (Negative); Nitrite,Urine Negative (Negative); Specific Gravity,Urine 1.012 (1.001-1.030); Urobilinogen,Urine 0.2 E.U./DL
[2023-05-29 03:02] LABS: Magnesium 1.8 mg/dL (1.5-2.4); Phosphorus 3.4 mg/dL (2.4-5.1)
[2023-05-29 03:03] LABS: % Iron Saturation 13.49 (12.00-45.00); Albumin 4.6 d/dL (3.8-4.9); BUN/Creat Ratio 17.92 Ratio (12.00-20.00); Blood Urea Nitrogen 21.5 mg/dL (9.0-27.0); Calcium 10.2 mg/dL (8.7-10.3); Carbon Dioxide 31.3 mmol/L (21.6-31.8); Chloride 98 mmol/L (96-109); Glucose 139 mg/dL (70-110); Iron 53 UG/DL (50-170); Potassium 4.5 mmol/L (3.5-5.5); Sodium 143 mmol/L (135-145); Total Iron Binding Capacity 393 UG/DL (228-460); Uric Acid 7.5 mg/dL (2.9-7.7)
[2023-05-29 03:47] LABS: Bacteria,Urine 3+ (None Seen)
[2023-05-29 04:33] LABS: Anion Gap 13.8 mmol/L (4.00-12.00); Carbon Dioxide 30.2 mmol/L (21.6-31.8); Potassium 4.2 mmol/L (3.5-5.5)
[2023-05-29 09:05] LABS: Urine Creatinine 82.6 mg/dL (28.0-217.0)
== END | disposition home or self-care (01) ==
LOC: LABPAT 15:09
PROVIDERS: ATTEND Surgery
DX: Z01.812 Encounter for preprocedural laboratory examination (principal); K63.5 Polyp of colon; N18.4 Chronic kidney disease, stage 4 (severe); N25.81 Secondary hyperparathyroidism of renal origin; E55.9 Vitamin D deficiency, unspecified; M10.9 Gout, unspecified; N39.0 Urinary tract infection, site not specified; I49.8 Other specified cardiac arrhythmias; R94.31 Abnormal electrocardiogram [ECG] [EKG]
CPT/HCPCS: 80048; 80051; 81001; 82040; 82043; 82306; 82570; 82728; 83540; 83550; 83735; 83970; 84100; 84550; 85025; 93005

== ENCOUNTER → 2023-07-30 | Outpatient (CLI) | payer MEDICARE, OTHER ==
[2023-07-30 13:49] LABS: African American GFR (CKD) 63 (>60 ml/min/1.73 sqM); Blood Urea Nitrogen 19 mg/dL (7-17); Non-African American GFR(CKD) 55 (>60 ml/min/1.73 sqM)
--- NOTE | 2023-07-30 15:18 | CT ---
EXAMINATION TYPE: CT ChestAbdPelvis w con CT DLP: 610.2 mGycm, Automated exposure control for dose reduction was used. DATE OF EXAM: 07/30/2023 3:03 PM COMPARISON: CT abdomen pelvis 05/12/2023 CLINICAL INDICATION:Female, 78 years old with history of C18.4; PHH, f/u ovarian and colon CA Technique: Multiple axial images of the chest, abdomen, and pelvis were obtained following the intrav enous administration of 100 mL Isovue-300. Oral contrast was a ice scraper. Two-dimensional coronal and sagittal reconstructions were obtained. Findings: CHEST: LUNGS/ PLEURA: No pleural effusion, focal consolidation, or pneumothorax. Linear atelectasis within t he bilateral lung bases. No suspicious pulmonary nodule or mass. AIRWAY: Patent and unremarkable.. HEART: Size within normal limits. No pericardial effusion moderate coronary artery calcifications. Mi tral annulus calcifications. MEDIASTINUM: No evidence of adenopathy. VASCULATURE: No aortic aneurysm. MUSCULOSKELETAL: No acute osseous abnormalities. Degenerative changes. No aggressive osseous lesion. SOFT TISSUES/LYMPH NODES: Unremarkable. LOWER NECK: Atrophic thyroid gland. ABDOMEN: ABDOMEN LIVER: Unremarkable GALLBLADDER AND BILE DUCTS: The gallbladder is not visualized and may be surgically absent. PANCREAS: Infiltration. SPLEEN: Unremarkable. ADRENAL GLANDS: Unremarkable. KIDNEYS AND URETERS: No evidence of hydronephrosis or renal calculus. The kidneys enhance symmetrical ly. Retroaortic left renal vein. Subcentimeter cortical hypodensities within the the left kidney whic h are too small characterize but likely represent cysts. PELVIS BLADDER: Incompletely distended but grossly unremarkable. REPRODUCTIVE: The uterus is surgically absent. No suspicious masses within the pelvis. ABDOMEN & PELVIS STOMACH AND BOWEL: Surgical changes of the bowel redemonstrated. no focal bowel wall thickening or john rrounding inflammatory changes. Mild to moderate stool is present within the colon. Previously demons trated focal thickening of the transverse colon has resolved. No evidence of bowel obstruction. PERITONEUM: No evidence of pneumoperitoneum or free fluid. New focal region of attenuation with centr al fat density within the left lower quadrant measuring up to 2.2 cm (series 3, image 88). VASCULATURE: Mild atherosclerotic calcifications are present throughout the abdominal aorta and its b ranches. No abdominal aortic aneurysm. Bilateral iliac venous stents. MUSCULOSKELETAL: No acute osseous abnormalities. Degenerative changes. No aggressive osseous lesion. Postsurgical changes from lumbar fusion at L4-L5. Grade 1 anterolisthesis of L4 on L5. Prominent post erior disc osteophyte complex at L2-L3. LYMPH NODES: No gross evidence for lymphadenopathy. SOFT TISSUE/ABDOMINAL WALL: Postsurgical changes of the anterior abdominal wall. IMPRESSION: 1. No evidence for metastatic disease or recurrence. Resolution of previously demonstrated focal wall thickening of the transverse colon. 2. New left lower quadrant omental infarct. 3. Postsurgical changes of the bowel redemonstrated.
== END | disposition home or self-care (01) ==
LOC: RADCTMAIN 13:00
PROVIDERS: ATTEND Internal Medicine
DX: C18.4 Malignant neoplasm of transverse colon (principal); K55.069 Acute infarction of intestine, part and extent unspecified; E11.22 Type 2 diabetes mellitus with diabetic chronic kidney disease; I12.9 Hypertensive chronic kidney disease with stage 1 through stage 4 chronic kidney disease, or unspecified chronic kidney disease; E78.5 Hyperlipidemia, unspecified; M81.0 Age-related osteoporosis without current pathological fracture; E03.9 Hypothyroidism, unspecified; J44.9 Chronic obstructive pulmonary disease, unspecified; Z98.890 Other specified postprocedural states
CPT/HCPCS: 71260; 74177; 82565; 84520

== ENCOUNTER → 2023-10-15 | Outpatient (CLI) | payer MEDICARE ==
[2023-10-15 15:45] LABS: Appearance,Urine Clear (Clear); Bilirubin,Urine Negative (Negative); Blood,Urine Negative (Negative); Color,Urine Yellow (Yellow); Ketones,Urine Negative (Negative); Nitrite,Urine Negative (Negative); Specific Gravity,Urine 1.016 (1.001-1.030)
[2023-10-15 15:55] LABS: Basophils # (A) 0.06 X 10*3/uL (0.00-0.10); Basophils % (A) 0.7 %; Eosinophils # (A) 0.13 X 10*3/uL (0.04-0.35); Eosinophils % (A) 1.4 %; HCT 34.3 % (37.2-46.3); HGB 11.4 g/dL (12.0-15.0); Lymphocytes # (A) 1.28 X 10*3/uL (0.90-5.00); Lymphocytes % (A) 14.1 %; MCH 31.1 pg (27.0-32.0); MCHC 33.2 g/dL (32.0-37.0); MCV 93.7 FL (80.0-97.0); Monocytes # (A) 0.65 X 10*3/uL (0.20-1.00); Monocytes % (A) 7.2 %; NRBC Per 100 WBC 0 X 10*3/uL (0.00-0.01); Neutrophils # (A) 6.93 X 10*3/uL (1.80-7.70); Neutrophils % (A) 76.2 %; Platelet Count 278 X 10*3/uL (140-440); RBC 3.66 X 10*6/uL (4.10-5.20); RDW 13.7 % (11.5-14.5); WBC 9.09 X 10*3/uL (4.50-10.00)
[2023-10-15 15:58] LABS: Bacteria,Urine None Seen (None Seen)
[2023-10-15 16:22] LABS: % Iron Saturation 25.56 (12.00-45.00); BUN/Creat Ratio 16.18 Ratio (12.00-20.00); Blood Urea Nitrogen 17.8 mg/dL (9.0-27.0); Calcium 9.3 mg/dL (8.7-10.3); Carbon Dioxide 27.9 mmol/L (21.6-31.8); Chloride 103 mmol/L (96-109); Ferritin 67.2 ng/mL (10.0-291.0); Glucose 103 mg/dL (70-110); Iron 92 UG/DL (50-170); Magnesium 1.5 mg/dL (1.5-2.4); Phosphorus 3.2 mg/dL (2.4-5.1); Sodium 142 mmol/L (135-145); Total Iron Binding Capacity 360 UG/DL (228-460); Uric Acid 6.5 mg/dL (2.9-7.7)
== END | disposition home or self-care (01) ==
LOC: LABWHC1 11:42
PROVIDERS: ATTEND Nurse Practitioner Family
DX: N25.81 Secondary hyperparathyroidism of renal origin (principal); N18.32 Chronic kidney disease, stage 3b; D63.1 Anemia in chronic kidney disease; E55.9 Vitamin D deficiency, unspecified; M10.9 Gout, unspecified; N39.0 Urinary tract infection, site not specified; R80.9 Proteinuria, unspecified
CPT/HCPCS: 36415; 80048; 81001; 82040; 82043; 82306; 82570; 82728; 83540; 83550; 83735; 83970; 84100; 84550; 85025

== ENCOUNTER → 2024-02-11 | Outpatient (CLI) | payer MEDICARE ==
[2024-02-11 15:07] LABS: Basophils # (A) 0.09 X 10*3/uL (0.00-0.10); Eosinophils # (A) 0.07 X 10*3/uL (0.04-0.35); Eosinophils % (A) 0.7 %; HCT 38.7 % (37.2-46.3); Lymphocytes # (A) 1.65 X 10*3/uL (0.90-5.00); Lymphocytes % (A) 17.4 %; MCH 31.9 pg (27.0-32.0); MCHC 33.6 g/dL (32.0-37.0); MCV 94.9 FL (80.0-97.0); Mean Platelet Volume 9.1 FL (9.5-12.2); Monocytes # (A) 0.68 X 10*3/uL (0.20-1.00); Monocytes % (A) 7.2 %; NRBC Per 100 WBC 0 X 10*3/uL (0.00-0.01); Neutrophils # (A) 6.94 X 10*3/uL (1.80-7.70); Neutrophils % (A) 73.3 %; Platelet Count 376 X 10*3/uL (140-440); RBC 4.08 X 10*6/uL (4.10-5.20); RDW 13.5 % (11.5-14.5); WBC 9.47 X 10*3/uL (4.50-10.00)
[2024-02-11 19:42] LABS: Appearance,Urine Cloudy (Clear); Bilirubin,Urine Negative (Negative); Blood,Urine Negative (Negative); Color,Urine Yellow (Yellow); Ketones,Urine Negative (Negative); Nitrite,Urine Negative (Negative); PH, Urine 5.5; Specific Gravity,Urine 1.022 (1.001-1.030); Urobilinogen,Urine 0.2 E.U./DL
[2024-02-11 20:07] LABS: Bacteria,Urine 3+ (None Seen)
[2024-02-11 20:56] LABS: % Iron Saturation 25.77 (12.00-45.00); Albumin 4.3 g/dL (3.8-4.9); BUN/Creat Ratio 24.27 Ratio (12.00-20.00); Blood Urea Nitrogen 26.7 mg/dL (9.0-27.0); Calcium 9.7 mg/dL (8.7-10.3); Chloride 101 mmol/L (96-109); Glucose 135 mg/dL (70-110); Iron 100 UG/DL (50-170); Magnesium 1.5 mg/dL (1.5-2.4); Phosphorus 3.8 mg/dL (2.4-5.1); Potassium 4.1 mmol/L (3.5-5.5); Sodium 140 mmol/L (135-145); Total Iron Binding Capacity 388 UG/DL (228-460); Uric Acid 5.3 mg/dL (2.9-7.7)
== END | disposition home or self-care (01) ==
LOC: LABWHC1 12:23
PROVIDERS: ATTEND Nurse Practitioner Family
DX: E55.9 Vitamin D deficiency, unspecified (principal); N25.81 Secondary hyperparathyroidism of renal origin; M10.9 Gout, unspecified; N39.0 Urinary tract infection, site not specified; N18.32 Chronic kidney disease, stage 3b; D63.1 Anemia in chronic kidney disease; R80.9 Proteinuria, unspecified
CPT/HCPCS: 36415; 80048; 81001; 82040; 82043; 82570; 82728; 83540; 83550; 83735; 83970; 84100; 84550; 85025

== ENCOUNTER → 2024-03-31 | Outpatient (CLI) | payer MEDICARE ==
[2024-03-31 15:52] LABS: % Iron Saturation 33.63 (12.00-45.00); Albumin 3.9 g/dL (3.8-4.9); BUN/Creat Ratio 22.44 Ratio (12.00-20.00); Blood Urea Nitrogen 20.2 mg/dL (9.0-27.0); Calcium 9.2 mg/dL (8.7-10.3); Chloride 104 mmol/L (96-109); Glucose 150 mg/dL (70-110); Iron 112 UG/DL (50-170); Magnesium 1.4 mg/dL (1.5-2.4); Phosphorus 2.8 mg/dL (2.4-5.1); Sodium 143 mmol/L (135-145); Total Iron Binding Capacity 333 UG/DL (228-460); Uric Acid 6.2 mg/dL (2.9-7.7)
[2024-03-31 16:20] LABS: HCT 33.6 % (37.2-46.3); HGB 11.2 g/dL (12.0-15.0); MCH 32.6 pg (27.0-32.0); MCHC 33.3 g/dL (32.0-37.0); MCV 97.7 FL (80.0-97.0); Mean Platelet Volume 9.4 FL (9.5-12.2); NRBC Per 100 WBC 0 X 10*3/uL (0.00-0.01); Platelet Count 254 X 10*3/uL (140-440); RBC 3.44 X 10*6/uL (4.10-5.20); RDW 13.1 % (11.5-14.5); WBC 8.27 X 10*3/uL (4.50-10.00)
[2024-03-31 18:57] LABS: Appearance,Urine Clear (Clear); Bilirubin,Urine Negative (Negative); Blood,Urine Negative (Negative); Color,Urine Yellow (Yellow); Ketones,Urine Negative (Negative); Nitrite,Urine Negative (Negative); PH, Urine 6.5; Specific Gravity,Urine 1.018 (1.001-1.030); Urobilinogen,Urine 0.2 E.U./DL
[2024-03-31 19:03] LABS: Bacteria,Urine None Seen (None Seen)
[2024-03-31 20:38] LABS: Urine Creatinine 86.9 mg/dL (28.0-217.0)
== END | disposition home or self-care (01) ==
LOC: LABWHC1 11:32
PROVIDERS: ATTEND Nurse Practitioner Family
DX: E55.9 Vitamin D deficiency, unspecified (principal); E21.3 Hyperparathyroidism, unspecified; D63.1 Anemia in chronic kidney disease; M10.9 Gout, unspecified; N39.0 Urinary tract infection, site not specified; N18.32 Chronic kidney disease, stage 3b; R80.9 Proteinuria, unspecified
CPT/HCPCS: 36415; 80048; 81001; 82040; 82043; 82306; 82570; 82728; 83540; 83550; 83735; 83970; 84100; 84550; 85027

== ENCOUNTER → 2024-04-07 | Outpatient (CLI) | payer MEDICARE ==
[2024-04-07 14:30] VITALS: BP 145/73; PULSE 88; RESP 16; TEMP 98.3
--- NOTE | 2024-04-07 15:49 | P.SLEEP ---
History of Present Illness DATE: 04/07/2024 CONSULTATION/NEW PATIENT EVALUATION HISTORY OF PRESENT ILLNESS/SLEEP-WAKE EVALUATION: 79-year-old lady had been e valuated in the sleep center for possible obstructive sleep apnea hypopnea syndrome. SLEEP SCHEDULE: Usually sleep schedule from 2 AM until 7 AM. FALLING ASLEEP: Patient does have problems with falling asleep, has TV set in bedroom. DURING SLEEP: Patient wakes up from sleep 2 times with nocturia, has witnessed episodes of stop breathing during the sleep. Positive history of restless leg symptoms, sweating, awakenings from dreams, shaking, pressure in the head. No history of hypnogogical hallucinations, sleep paralysis, or cataplexy. DURING THE DAY/WAKE STATE: Patient feels sleepiness during the day, has problems with memory, concentration. Maribel sleepiness scale is 9. Patient may take up to 3 naps during the day. PAST MEDICAL HISTORY: Hypertension, COPD, asthma, diabetes mellitus, acid reflux, right eye blindness, hypothyroidism, hyperlipidemia, third stage kidney failure, fibromyalgia, glaucoma. PAST SURGICAL HISTORY: Surgical treatment of colon cancer in 2022, back surgery, cholecystectomy, surgery for ovarian cancer, tonsillectomy and adenoidectomy. MEDICATIONS: Please see below. SOCIAL HISTORY: Please see below. FAMILY HISTORY: Please see below. REVIEW OF SYSTEMS: Multiple awakenings from sleep, sleepiness during the day. No fevers. No double vision. No recent chest pain. No shortness of breath. No abdominal pain. No bleeding episodes. No blood in urine. No seizure episodes. PHYSICAL EXAMINATION: GENERAL: A pleasant patient without any distress. VITAL SIGNS: Please see below, weight 119 pounds, BMI 25.7. HEENT: PERRLA, EOMI. Evaluation of oropharynx showed tongue protrudes midline, low position of soft palate Mallampati 34. NECK: Supple. No JVD. Thyroid is not palpable. 16.5 inches in circumference. LUNGS: Clear to percussion and to auscultation. Good air exchange. No wheezing or rhonchi. HEART: S1, S2 regular. No murmurs, gallops or rubs. ABDOMEN: Soft and nontender. Bowel sounds are present. No organomegaly appreciated. EXTREMITIES: No clubbing or cyanosis. PROCESSING CLERK: Awake, alert, and oriented x3. Cranial nerves 2 to 7 intact. There is no fasciculation or atrophy noted. No focal deficits observed. ASSESSMENT: 1. Multiple awakenings from sleep, witnessed episodes of stop breathing during the sleep, sleepiness during the day, extremely low position of soft palate Mallampati 34, wide neck 16.5 inches in circumference. Obstructive sleep apnea hypopnea syndrome. 2. Third stage kidney disease. 3. Hypertension. 4. COPD. 5 diabetes mellitus. 6 . Bronchial asthma. 7. Acid reflux. 8. Hypothyroidism. 9 . Right eye blindness. 10. Hyperlipidemia. 11. Status post surgical treatment for colon cancer in 2022. 12. Status post treatment for ovarian cancer. 13. Status post back surgery. 14. Significant amount of movements during the sleep, possibly periodic limb movements. PLAN: 1. Polysomnography for evaluation of patient's breathing during sleep and to check for possible periodic limb movements. 2. CPAP/BiPAP titration if sleep study confirms obstructive sleep apnea- hypopnea syndrome. 3. Preferable position during sleep on the side. 4. No driving if patient feels any sleepiness. Patient is aware of civil and criminal liability for unsafe driving. 5. Sleep hygiene with regular sleep time for at least 7.5-8 hours. 6. Watching weight. Thank you very much for referring this patient for consultation. Sincerely, Michel Nelson MD, PhD, FAASM. Diplomat of [place] [employer], Sleep Medicine Board by [place] [employer] [place] [employer] Instructor of [employer] [facility] [place] Past Medical History Past Medical History: Cancer, Diabetes Mellitus, Deep Vein Thrombosis (DVT), Eye Disorder, Fibromyalgia, GERD/Reflux, GI Bleed, Hearing Disorder / Deafness, Hyperlipidemia, Osteoarthritis (OA), Renal Disease, Sleep Apnea/CPAP/BIPAP, Syncope, Thyroid Disorder Additional Past Medical History / Comment(s): Recent diagnosis colon cancer, lower GI bleed, uterine ca 50 years ago sx only.past falls, past c2 fx no sx but wore a brace , glaucoma [place] eyes, macular degeneration R eye, uti's, occasional vertigo, neuropathy feet,legs,and hands, stage 4 kidney failure, anemia with past iron infusions, MINNA with O2/Nc at hs. History of Any Multi-Drug Resistant Organisms: None Reported Past Surgical History: Adenoidectomy, Back Surgery, Bariatric Surgery, Cholecystectomy, Heart Catheterization With Stent, Hysterectomy, Tonsillectomy Additional Past Surgical History / Comment(s): EGD, colonoscopy, Gastric stapling, loop monitor implanted 03-30-18, Iliac vein stenting Past Anesthesia/Blood Transfusion Reactions: No Reported Reaction Additional Past Anesthesia/Blood Transfusion Reaction / Comment(s): hx. of blood transfusion with gastric stapling surgery/no reaction Date of Last Stent Placement:: november 2022 several per patient Type of Cardiac Device: Loop Device Placement Date:: 2017 Past Psychological History: Anxiety, Depression Additional Psychological History / Comment(s): pt's friend lives with her in apt. has a walker and uses 02 2-3 liters at hs. Smoking Status: Never smoker Past Alcohol Use History: None Reported Past Drug Use History: None Reported - Past Family History Brother(s) Family Medical History: Cancer Mother Family Medical History: Dementia Father Family Medical History: Myocardial Infarction ([place]), Pulmonary Embolus Medications and Allergies Home Medications Medication Instructions Recorded Confirmed Type LORazepam [Ativan] 0.5 mg PO BID PRN 10/15/14 06/09/23 History Simvastatin [Zocor] 20 mg PO HS 10/15/14 04/07/24 History Levothyroxine Sodium [Synthroid] 100 mcg PO QAM 05/30/16 04/07/24 History amLODIPine BESYLATE 5 mg PO QAM 03/28/21 06/09/23 History Cholecalciferol [Vitamin D3 (25 25 mcg PO QAM 09/18/22 04/07/24 History Mcg = 1000 Iu)] Cyanocobalamin (Vitamin B-12) 1,000 mcg PO QAM 09/18/22 04/07/24 History [Vitamin B-12] DULoxetine HCL [Cymbalta] 60 mg PO QAM 09/18/22 04/07/24 History Escitalopram [Lexapro] 10 mg PO HS 09/18/22 04/07/24 History Furosemide [Lasix] 40 mg PO Q48H 09/18/22 04/07/24 History Omeprazole [PriLOSEC] 20 mg PO QAM 09/18/22 04/07/24 History Semaglutide [Rybelsus] 3 mg PO QAM 09/18/22 06/09/23 History Aspirin 325 mg PO HS 09/19/22 04/07/24 History Clopidogrel Bisulfate [Plavix] 75 mg PO QAM 06/06/23 04/07/24 History Acetaminophen Tab [Tylenol] 1,000 mg PO Q6HR PRN #30 tablet 06/13/23 04/07/24 Rx oxyCODONE HCL [OxyIR] 5 mg PO Q6H PRN 3 Days #12 tab 06/13/23 04/07/24 Rx Allergies Allergy/AdvReac Type Severity Reaction Status Date / Time Penicillins Allergy SKIN TURNS Verified 06/09/23 07:59 RED Physical Exam Vitals: Vital Signs Temp Pulse Resp BP Pulse Ox 04/07/24 14:29 98.3 F 88 16 145/73 97 Intake and Output 04/07/24 04/07/24 04/07/24 06:59 14:59 22:59 Other: Weight 53.977 kg Sleep Note - Sleep Data ESS Total: 9 - Sleep Note Sleep Note: Temperature: 98.3 F Pulse Rate: 88 Respiratory Rate: 16 Blood Pressure: 145/73 SpO2: 97 Height: 4 ft 9 in Weight: 53.977 kg BMI: Neck Circumference: 16.5
== END ==
LOC: 3 N SLEEP 14:15
PROVIDERS: ATTEND Internal Medicine
DX: G47.33 Obstructive sleep apnea (adult) (pediatric) (principal); E11.22 Type 2 diabetes mellitus with diabetic chronic kidney disease; I12.9 Hypertensive chronic kidney disease with stage 1 through stage 4 chronic kidney disease, or unspecified chronic kidney disease; N18.30 Chronic kidney disease, stage 3 unspecified; J44.89 Other specified chronic obstructive pulmonary disease; K21.9 Gastro-esophageal reflux disease without esophagitis; E03.9 Hypothyroidism, unspecified; H54.40 Blindness, one eye, unspecified eye; E78.5 Hyperlipidemia, unspecified; Z98.890 Other specified postprocedural states; Z85.038 Personal history of other malignant neoplasm of large intestine; Z85.43 Personal history of malignant neoplasm of ovary; Z88.0 Allergy status to penicillin; Z79.02 Long term (current) use of antithrombotics/antiplatelets; Z79.890 Hormone replacement therapy; Z79.899 Other long term (current) drug therapy; Z79.84 Long term (current) use of oral hypoglycemic drugs
CPT/HCPCS: 99211

== ENCOUNTER 2024-06-03 06:26 | Day surgery (SDC) | payer MEDICARE ==
[2024-06-01 14:29] VITALS: BMI 25.5
[2024-06-03 07:21] LABS: Glucose,Whole Blood 117 mg/dL (70-110)
[2024-06-03 07:25] VITALS: TEMP 97.2
[2024-06-03] MEDS: IV FLUID CONTINUATION 1,000 ML IV ONE (07:25)
[2024-06-03] MEDS: LACTATED RINGERS 1,000 ML IV SCH (07:26)
[2024-06-03] MEDS ORDERED: PROPOFOL 10 MG/ML 20 ML VIAL IV ONE (07:35)
--- NOTE | 2024-06-03 08:02 | P.GSHP ---
History of Present Illness H&P Date: 06/03/24 Chief Complaint: history of colon cancer this a 71-year-old female who has a previous right colectomy colon cancerapproximately year ago. Patient presents today for colonoscopy. Past Medical History Past Medical History: Cancer, Diabetes Mellitus, Deep Vein Thrombosis (DVT), Eye Disorder, Fibromyalgia, GERD/Reflux, GI Bleed, Hearing Disorder / Deafness, Hyperlipidemia, Hypertension, Osteoarthritis (OA), Renal Disease, Sleep Apnea/ CPAP/BIPAP, Syncope, Thyroid Disorder Additional Past Medical History / Comment(s): SOB O2 at night only, 2L/NC. Hx colon cancer with surgery, hx lower GI bleed, hx uterine cancer 50 years ago with surgery. Past falls, with hx C2 fracture(no surgery). Bilateral glaucoma, bilateral macular degeneration, completely blind in right eye. "Almost deaf." Hx UTI's, Stage 4 kidney disease. Occasional vertigo, neuropathy in feet, legs, hands and lips. Anemia with past iron infusions. History of Any Multi-Drug Resistant Organisms: None Reported Past Surgical History: Adenoidectomy, Back Surgery, Bariatric Surgery, Bowel Resection, Cholecystectomy, Heart Catheterization With Stent, Hysterectomy, Tonsillectomy Additional Past Surgical History / Comment(s): EGD, colonoscopy, Gastric stapling, loop monitor implanted 03-30-18, iliac vein stenting. Past Anesthesia/Blood Transfusion Reactions: No Reported Reaction Additional Past Anesthesia/Blood Transfusion Reaction / Comment(s): Hx of blood transfusion with gastric stapling surgery/no reaction. Date of Last Stent Placement:: november 2022 several per patient Type of Cardiac Device: Loop Device Placement Date:: 2017 Smoking Status: Never smoker - Past Family History Brother(s) Family Medical History: Cancer Mother Family Medical History: Dementia Father Family Medical History: Myocardial Infarction ([place]), Pulmonary Embolus Medications and Allergies Home Medications Medication Instructions Recorded Confirmed Type Simvastatin [Zocor] 20 mg PO HS 10/15/06/03/24 History Levothyroxine Sodium [Synthroid] 100 mcg PO QAM 05/30/16 06/03/24 History Cyanocobalamin (Vitamin B-12) 1,000 mcg PO QAM 09/18/22 06/03/24 History [Vitamin B-12] DULoxetine HCL [Cymbalta] 60 mg PO QAM 09/18/22 06/03/24 History Escitalopram [Lexapro] 10 mg PO QAM 09/18/22 06/03/24 History Furosemide [Lasix] 40 mg PO DAILY 09/18/22 06/03/24 History Omeprazole [PriLOSEC] 20 mg PO Q48H 09/18/22 06/03/24 History Semaglutide [Rybelsus] 3 mg PO QAM 09/18/22 06/03/24 History Clopidogrel Bisulfate [Plavix] 75 mg PO QAM 06/06/23 06/03/24 History Butalb/Acetaminophen/Caffeine 1 cap PO Q6HR PRN 06/01/24 06/03/24 History [Esgic 50-325-40 Capsule] Cholecalciferol [Vitamin D3 (25 50 mcg PO DAILY 06/01/24 06/03/24 History Mcg = 1000 Iu)] Ferrous Sulfate [Iron] 325 mg PO DAILY 06/01/24 06/03/24 History Allergies Allergy/AdvReac Type Severity Reaction Status Date / Time Penicillins Allergy SKIN TURNS Verified 06/03/24 07:05 RED Surgical - Exam Vital Signs Temp Pulse Resp BP Pulse Ox 97.2 F L 84 16 162/75 100 06/03/24 07:19 06/03/24 07:19 06/03/24 07:19 06/03/24 07:19 06/03/24 07:19 - General well developed, well nourished, no distress - Eyes PERRL - ENT normal pinna - Neck no masses - Respiratory normal expansion - Cardiovascular Rhythm: regular - Abdomen Abdomen: soft, non tender Results - Labs Abnormal Lab Results - Last 24 Hours (Table) 06/03/24 Range/Units 07:18 POC Glucose (mg/dL) 117 H (70-110) mg/dL Assessment and Plan Assessment: hhistory of right colon cancer. We'll perform colonoscopy.
--- NOTE | 2024-06-03 08:05 | P.OP ---
Date of Procedure: 06/03/24 Preoperative Diagnosis: History of right colon cancer Postoperative Diagnosis: normal colon status post right colectomy Procedure(s) Performed: colonoscopy Anesthesia: MAC Surgeon: Mikey Han Pathology: none sent Condition: stable Disposition: PACU Description of Procedure: patient's placed on the endoscopy table in the lateral position. She received IV sedation. Digital rectal exam was performed. There a few external hemorrhoids. Flexible colonoscope was then placed patient anus and passed t hroughout the entire colon. The ithe ileocolonic anastomosis visualized. The hepatic flexure. Normal. The transverse, descending and sigmoid colon appeared normal. Scope was brought back the rectum this was normal. Scope was withdrawn for patient. There was no evidence of any recurrent colon cancer.
[2024-06-03 08:21] VITALS: BP 135/63; PULSE 73; RESP 18
== END 2024-06-03 08:41 | disposition home or self-care (01) ==
LOC: ORWHC2ENDO 06:26
PROVIDERS: ATTEND Surgery
DX: Z12.11 Encounter for screening for malignant neoplasm of colon (principal); E07.9 Disorder of thyroid, unspecified; K21.9 Gastro-esophageal reflux disease without esophagitis; I12.9 Hypertensive chronic kidney disease with stage 1 through stage 4 chronic kidney disease, or unspecified chronic kidney disease; E11.22 Type 2 diabetes mellitus with diabetic chronic kidney disease; M19.90 Unspecified osteoarthritis, unspecified site; H91.90 Unspecified hearing loss, unspecified ear; M79.7 Fibromyalgia; G47.33 Obstructive sleep apnea (adult) (pediatric); E78.5 Hyperlipidemia, unspecified; H54.61 Unqualified visual loss, right eye, normal vision left eye; Z79.02 Long term (current) use of antithrombotics/antiplatelets; Z79.890 Hormone replacement therapy; Z85.42 Personal history of malignant neoplasm of other parts of uterus; Z86.718 Personal history of other venous thrombosis and embolism; Z88.0 Allergy status to penicillin; Z90.49 Acquired absence of other specified parts of digestive tract; Z90.710 Acquired absence of both cervix and uterus; Z95.5 Presence of coronary angioplasty implant and graft; Z86.010 Personal history of colon polyps
CPT/HCPCS: J2704; G0105

== ENCOUNTER 2024-06-23 19:38 | Outpatient (CLI) | payer MEDICARE ==
--- NOTE | 2024-06-24 18:02 | P.PCN ---
Description of Procedure: POLYSOMNOGRAPHY REPORT PROCEDURE(S)/DATE(S): Polysomnography 06/23/2024 CLINICAL: Patient has been seen in the sleep center for evaluation of obstructive sleep apnea-hypopnea syndrome. Please see my consultation. Sleep study has been done for evaluation of patient breathing during the sleep. PROCEDURE: The standard montage for clinical polysomnography included the electroencephalogram, the electrooculogram, the mentalis surface electromyography and Lead II cardiography. The respiratory battery consisted of measurements of nasal/buccal air flow, pressure transducer measurements from nose, thoracic and/or abdominal effort and intercostal surface electromyography. Video monitoring has been done to check for any parasomnia events. Nocturnal oxyhemoglobin saturations were obtained by finger oximetry. Step-uribe titration with positive airway pressure was utilized to control the respiratory events, if necessary. RESULTS: During the diagnostic sleep study sleep efficiency was extremely short 41.8%. Latency to sleep onset was slightly prolonged to 39.5 min. Sleep archi tecture showed stage NI was increased to 16.9%, Delta sleep was absent 0%, REM sleep was high 45.1%. Respiratory channel showed 0 obstructive apneas, 0 mixed apneas, 0 central apneas, 25 hypopneas by 4% oxygen desaturation and 35 by 3% oxygen desaturation with lowest oxygen level 77%. Total apnea hypopnea index was 8.7 with 4% oxygen desaturation. Heart rate was in the range between 68 and 87, average 77. EMG showed 19.2 periodic limb movements per hour with 0.3 micro-arousals per hour. IMPRESSIONS: 1. Obstructive sleep apnea hypopnea syndrome in mild range. 2. Periodic limb movements have been documented. 3. Hypertension Please see other impressions from consultation PLAN: 1. The patient will have AutoPAP treatment for correction of respiratory abnormalities during the sleep. 2. I will see patient for follow-up visit to evaluate clinical response on treatment, compliance with treatment and make any necessary adjustments related to mask fitting, pressure and humidification 3. Sleep hygiene with regular time in bed for at least 7-1/2 hours. 4. No driving if feeling sleepiness. 5. Please check iron profile including ferritin level. Low level of iron may increase the risk for periodic limb movements. Thank you very much for allowing me to participate in the management of your patient. Sincerely, Michel Nelson MD, PhD, FAASM. Diplomat of [place] [employer], Sleep Medicine Board by [place] [employer] Research Worker [employer] [facility] [place] cc: Herberth Roe DO
== END 2024-06-24 06:16 | disposition home or self-care (01) ==
LOC: 3 N SLEEP 19:38
PROVIDERS: ATTEND Internal Medicine
CPT/HCPCS: 95810

== ENCOUNTER → 2024-07-20 | Outpatient (CLI) | payer MEDICARE ==
[2024-07-20 13:55] LABS: African American GFR (CKD) 49 (>60 ml/min/1.73 sqM); Blood Urea Nitrogen 30 mg/dL (7-17); Non-African American GFR(CKD) 43 (>60 ml/min/1.73 sqM)
--- NOTE | 2024-07-20 15:44 | CT ---
EXAMINATION TYPE: CT brain wo con DATE OF EXAM: 07/20/2024 COMPARISON: 11/13/2021 INDICATION: Fall on thinners 1week ago. Headaches and head pressure. DLP: 1224.3 mGycm, Automated exposure control for dose reduction was used. CONTRAST: None CT of the brain is performed utilizing 3 mm thick sections through the posterior fossa and 3 mm thick sections through the remaining calvarium. Study is performed within 24 hours of arrival to the hosp [facility]. No abnormal hyperdensity is present to suggest an acute intracranial hemorrhage. No mass lesion is evident. No acute infarcts are evident. Periventricular white matter hypodensity and deep white matter hypoden sity is present likely on the basis of chronic white matter ischemic changes Ventricles and sulci are prominent for the patient age. Paranasal sinuses and mastoid air cells within the [id number] are clear. IMPRESSION: 1. No acute intracranial process. Follow up MRI can be performed as clinically indicated. 2. Atrophy with chronic appearing periventricular white matter ischemic type changes, progressive fro m comparison [facility], Workstation: [facility], 07/20/2024 3:42 PM
== END | disposition home or self-care (01) ==
LOC: RADCTMAIN 12:55
PROVIDERS: ATTEND Internal Medicine
CPT/HCPCS: 36415; 70450; 71260; 74177; 82565; 84520

== ENCOUNTER → 2024-09-29 | Outpatient (CLI) | payer MEDICARE ==
[2024-09-29 14:44] VITALS: BP 102/59; PULSE 80; RESP 16; TEMP 98.4
--- NOTE | 2024-09-29 15:18 | P.PROGSL ---
Subjective DATE: 09/29/2024 FOLLOW UP VISIT. Patient with obstructive sleep apnea hypopnea syndrome return to sleep center for follow-up visit. Recently patient had sleep study which documented obstructive sleep apnea hypopnea syndrome. Patient was initiated on PAP therapy and today is first visit after treatment was started. Patient was able to use PAP equipment every night for the whole night. Patient sleeps better on CPAP than before. The patient does not have significant problems with the mask, PAP pressure and humidification. [place] sleepiness scale is slightly increased to 10. I checked information from PAP unit. PAP unit pressure 5-10, average 9.7 cm H2O. Usage is 100% and 87% for more then 4 hours, average 5.75 hours per night. Leak is 22.5 l/m, which is in acceptable range. Apnea Hypopnea Index is increased to 14.8. MEDICATIONS:1. [] 2. [] 3. [] 4. [] 5. [] 6. [] 7. [] 8. [] During physical exam: GENERAL: A pleasant patient without any distress. VITAL SIGNS: Please see below, weight 124 pounds. HEENT: PERRLA, EOMI.low position of soft palate, Mallapati 34. NECK: Supple. No JVD. LUNGS: Clear to percussion and to auscultation. Good air exchange. No wheezing or rhonchi. HEART: S1, S2 regular. ABDOMEN: Soft and nontender.[] EXTREMITIES: No clubbing or cyanosis. 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 No focal deficit. Impressions: 1. Obstructive sleep apnea-hypopnea syndrome. Patient demonstrated great compliance with treatment, benefiting from treatment, but apnea hypopnea index reading from the machine still significantly increased. 2. Hypertension. 3. COPD. 4. Third stage kidney disease. 5. Diabetes mellitus. 6. Bronchial asthma. 7. Acid reflux. 8. Hypothyroidism. 9. Right eye blindness. 10. Hyperlipidemia. 11. Status post surgical treatment for colon cancer in 2022. 12. Status post treatment for ovarian cancer. 13. Status post back surgery. 14. Periodic limb movements have been documented during the sleep study without significant amount of micro results. Plan: 1. Continue using PAP equipment every night for the whole night. I changed regimen of AutoPap to the range 5-13 cm of water. 2. To change air filter at least 1-2 times per month. 3. PAP unit should stay lower then position of the head. 4. Advised patient to remove all remaining water from humidifier canister daily and make it dry after each usage. Refill canister with fresh distilled water before each usage. 5. Sleep hygiene with regular time in bed for at least 8 hours. 6. Precautions related to driving. No driving if feel any sleepiness. 7. I will maintain prescription for PAP supplies including mask, tube, filters. 8. Follow up visit in 2 months or earlier if patient has any problems. 9. Watching weight. Thank you very much for allowing me to participate in the management of your patient. Michel Nelson MD, PhD, FAASM. Diplomat of [place] [employer], Sleep Medicine Board by [place] [employer] Medicaid Business Analyst of [facility] [place] Objective - Vital Signs Vital Signs: Vital Signs Temp 98.4 F 09/29/24 14:44 Pulse 80 09/29/24 14:44 Resp 16 09/29/24 14:44 BP 102/59 09/29/24 14:44 Pulse Ox 97 09/29/24 14:44 FiO2 Home Medications: Home Medications Medication Instructions Recorded Confirmed Type Simvastatin [Zocor] 20 mg PO HS 10/15/14 06/03/24 History Levothyroxine Sodium [Synthroid] 100 mcg PO QAM 05/30/16 06/03/24 History Cyanocobalamin (Vitamin B-12) 1,000 mcg PO QAM 09/18/22 06/03/24 History [Vitamin B-12] DULoxetine HCL [Cymbalta] 60 mg PO QAM 09/18/22 06/03/24 History Escitalopram [Lexapro] 10 mg PO QAM 09/18/22 06/03/24 History Furosemide [Lasix] 40 mg PO DAILY 09/18/22 06/03/24 History Omeprazole [PriLOSEC] 20 mg PO Q48H 09/18/22 06/03/24 History Semaglutide [Rybelsus] 3 mg PO QAM 09/18/22 06/03/24 History Clopidogrel Bisulfate [Plavix] 75 mg PO QAM 06/06/23 06/03/24 History Butalb/Acetaminophen/Caffeine 1 cap PO Q6HR PRN 06/01/24 06/03/24 History [Esgic 50-325-40 Capsule] Cholecalciferol [Vitamin D3 (25 50 mcg PO DAILY 06/01/24 06/03/24 History Mcg = 1000 Iu)] Ferrous Sulfate [Iron] 325 mg PO DAILY 06/01/24 06/03/24 History
== END ==
LOC: 3 N SLEEP 14:04
PROVIDERS: ATTEND Internal Medicine
DX: G47.33 Obstructive sleep apnea (adult) (pediatric) (principal); I10 Essential (primary) hypertension; E11.9 Type 2 diabetes mellitus without complications; K21.9 Gastro-esophageal reflux disease without esophagitis; E03.9 Hypothyroidism, unspecified; J44.89 Other specified chronic obstructive pulmonary disease; H54.3 Unqualified visual loss, both eyes; G47.61 Periodic limb movement disorder; E78.5 Hyperlipidemia, unspecified; Z48.3 Aftercare following surgery for neoplasm; Z85.43 Personal history of malignant neoplasm of ovary; Z98.890 Other specified postprocedural states; Z99.89 Dependence on other enabling machines and devices; Z88.0 Allergy status to penicillin; Z79.84 Long term (current) use of oral hypoglycemic drugs; Z79.890 Hormone replacement therapy; Z79.899 Other long term (current) drug therapy
CPT/HCPCS: 99212

== ENCOUNTER → 2024-10-14 | Outpatient (CLI) | payer MEDICARE ==
[2024-10-15 02:37] LABS: Basophils # (A) 0.08 X 10*3/uL (0.00-0.10); Basophils % (A) 0.9 %; Eosinophils # (A) 0.23 X 10*3/uL (0.04-0.35); Eosinophils % (A) 2.5 %; HCT 38.3 % (37.2-46.3); HGB 11.9 g/dL (12.0-15.0); Lymphocytes # (A) 1.42 X 10*3/uL (0.90-5.00); Lymphocytes % (A) 15.2 %; MCH 29.8 pg (27.0-32.0); MCHC 31.1 g/dL (32.0-37.0); Monocytes # (A) 0.74 X 10*3/uL (0.20-1.00); Monocytes % (A) 7.9 %; NRBC Per 100 WBC 0 X 10*3/uL (0.00-0.01); Neutrophils # (A) 6.84 X 10*3/uL (1.80-7.70); Neutrophils % (A) 73.1 %; Platelet Count 297 X 10*3/uL (140-440); RBC 3.99 X 10*6/uL (4.10-5.20); RDW 12.5 % (11.5-14.5); WBC 9.35 X 10*3/uL (4.50-10.00)
[2024-10-15 03:01] LABS: Urine Creatinine 49.6 mg/dL (28.0-217.0)
[2024-10-15 03:40] LABS: Appearance,Urine Clear (Clear); Bilirubin,Urine Negative (Negative); Blood,Urine Negative (Negative); Color,Urine Yellow (Yellow); Ketones,Urine Negative (Negative); Nitrite,Urine Negative (Negative); PH, Urine 5.5; Specific Gravity,Urine 1.015 (1.001-1.030); Urobilinogen,Urine 0.2 E.U./DL
[2024-10-15 03:54] LABS: % Iron Saturation 13.26 (12.00-45.00); BUN/Creat Ratio 20.85 Ratio (12.00-20.00); Blood Urea Nitrogen 27.1 mg/dL (9.0-27.0); Calcium 9.3 mg/dL (8.7-10.3); Carbon Dioxide 26.2 mmol/L (21.6-31.8); Chloride 102 mmol/L (96-109); Ferritin 68.8 ng/mL (10.0-291.0); Glucose 158 mg/dL (70-110); Iron 50 UG/DL (50-170); Magnesium 1.8 mg/dL (1.5-2.4); Phosphorus 3.6 mg/dL (2.4-5.1); Potassium 3.8 mmol/L (3.5-5.5); Sodium 143 mmol/L (135-145); Total Iron Binding Capacity 377 UG/DL (228-460); Uric Acid 6.9 mg/dL (2.9-7.7)
[2024-10-15 04:12] LABS: Bacteria,Urine None Seen (None Seen); Calcium Oxalate Crystals,Urine Present (None Seen)
== END | disposition home or self-care (01) ==
LOC: LABWHC1 16:27
PROVIDERS: ATTEND Internal Medicine Nephrology
DX: E55.9 Vitamin D deficiency, unspecified (principal); N18.32 Chronic kidney disease, stage 3b; D64.9 Anemia, unspecified; N25.81 Secondary hyperparathyroidism of renal origin; M10.9 Gout, unspecified; N39.0 Urinary tract infection, site not specified
CPT/HCPCS: 36415; 80048; 81001; 82040; 82043; 82306; 82570; 82728; 83540; 83550; 83735; 83970; 84100; 84550; 85025

== ENCOUNTER → 2024-11-24 | Outpatient (CLI) | payer MEDICARE ==
[2024-11-24 15:27] VITALS: BP 101/63; PULSE 82; RESP 12; TEMP 98.3
--- NOTE | 2024-11-24 15:45 | P.PROGSL ---
Subjective DATE: 11/24/2024 FOLLOW UP VISIT. Patient with obstructive sleep apnea hypopnea syndrome return to sleep center for follow-up visit. Information from previous visit have been reviewed. Patient is using PAP equipment every night for the whole night, getting PAP supplies in time. The patient does not have significant problems with the mask, PAP unit and humidification. [place] sleepiness scale is borderline 9. I checked information from PAP unit. PAP unit pressure 5-13, average 11.3 cm H2O. Usage is 80% for more then 4 hours, average 3.9 hours per night. Leak is significantly increased to 47 l/m. Apnea Hypopnea Index is increased to 19.5, central only 0.5. MEDICATIONS have been reviewed, please see below. During physical exam: GENERAL: A pleasant patient without any distress. VITAL SIGNS: Please see below, weight is 127.6 lbs. HEENT: PERRLA, EOMI.low position of soft palate, Mallapati 3/4. NECK: Supple. No JVD. LUNGS: Clear to percussion and to auscultation. Good air exchange. No wheezing or rhonchi. HEART: S1, S2 regular. ABDOMEN: Soft and nontender.[] EXTREMITIES: No clubbing or cyanosis. 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 No focal deficit. Impressions: 1. Obstructive sleep apnea-hypopnea syndrome. Patient demonstrated great compliance with treatment, benefiting from treatment. Apnea hypopnea index stil l increased above normal range. High leak from the mask. 2. Hypertension. 3. COPD and asthma. 4. History of kidney disease, stage III. 5. Diabetes mellitus. 6. Acid reflux. 7. Hypothyroidism. 8. Hyperlipidemia. 9. Right eye blindness. 10. Periodic limb movements by sleep study, no complaints. 11. Status post surgical treatment for colon cancer in 2022. 12. Status post treatment for ovarian cancer. I changed pressure in AutoPap unit to the range 5-14 cm of water. Plan: 1. Continue using PAP equipment every night for the whole night. Will try different style of the mask to prevent leak. 2. Sleep hygiene with regular time in bed for at least 7.5-8 hours 3. PAP unit should stay lower then position of the head. 4. Advised patient to remove all remaining water from humidifier canister daily and make it dry after each usage. Refill canister with fresh distilled water before each usage. 5. Watching weight. 6. Precautions related to driving. No driving if feel any sleepiness. 7. I will maintain prescription for PAP supplies including mask, tube, filters. 8. Follow up visit in 2 months or earlier if patient has any problems. Thank you very much for allowing me to participate in the management of your patient. Michel Nelson MD, PhD, FAASM. Diplomat of [place] [employer], Sleep Medicine Board by [place] [employer] [facility] [place] Objective - Vital Signs Vital Signs: Vital Signs Temp 98.3 F 11/24/24 15:25 Pulse 82 11/24/24 15:25 Resp 12 11/24/24 15:25 BP 101/63 11/24/24 15: Pulse Ox 93 L 11/24/24 15:25 FiO2 Intake & Output 11/23/24 11/24/24 11/24/24 18:59 06:59 18:59 Weight 57.606 kg Home Medications: Home Medications Medication Instructions Recorded Confirmed Type Simvastatin [Zocor] 20 mg PO HS 10/15/14 11/24/24 History Levothyroxine Sodium [Synthroid] 100 mcg PO QAM 05/30/16 11/24/24 History Cyanocobalamin (Vitamin B-12) 1,000 mcg PO QAM 09/18/22 06/03/24 History [Vitamin B-12] DULoxetine HCL [Cymbalta] 60 mg PO QAM 09/18/22 11/24/24 History Escitalopram [Lexapro] 20 mg PO QAM 09/18/22 11/24/24 History Furosemide [Lasix] 40 mg PO DAILY 09/18/22 11/24/24 History Omeprazole [PriLOSEC] 20 mg PO Q48H 09/18/22 06/03/24 History Semaglutide [Rybelsus] 3 mg PO QAM 09/18/22 06/03/24 History Clopidogrel Bisulfate [Plavix] 75 mg PO QAM 06/06/23 11/24/24 History Butalb/Acetaminophen/Caffeine 1 cap PO Q6HR PRN 06/01/24 06/03/24 History [Esgic 50-325-40 Capsule] Cholecalciferol [Vitamin D3 (25 50 mcg PO DAILY 06/01/24 06/03/24 History Mcg = 1000 Iu)] Ferrous Sulfate [Iron] 325 mg PO DAILY 06/01/24 06/03/24 History Empaglifloz/Linaglip/Metformin 1 tab PO DAILY 11/24/24 11/24/24 History [Trijardy Xr 12.5-2.5-1,000 mg] Gabapentin [Neurontin] 100 mg PO TID 11/24/24 11/24/24 History Rivaroxaban [Xarelto] 10 mg PO DAILY 11/24/24 11/24/24 History oxyCODONE HCL/ACETAMINOPHEN 1 each PO TID 11/24/24 11/24/24 History [Oxycodone-Acetaminophen 10-300]
== END ==
LOC: 3 N SLEEP 15:00
PROVIDERS: ATTEND Internal Medicine
DX: G47.33 Obstructive sleep apnea (adult) (pediatric) (principal); I10 Essential (primary) hypertension; J44.9 Chronic obstructive pulmonary disease, unspecified; J45.909 Unspecified asthma, uncomplicated; E11.9 Type 2 diabetes mellitus without complications; K21.9 Gastro-esophageal reflux disease without esophagitis; E78.5 Hyperlipidemia, unspecified; E03.9 Hypothyroidism, unspecified; G47.61 Periodic limb movement disorder; H54.413A Blindness right eye category 3, normal vision left eye; Z87.448 Personal history of other diseases of urinary system; Z85.038 Personal history of other malignant neoplasm of large intestine; Z85.43 Personal history of malignant neoplasm of ovary; Z88.0 Allergy status to penicillin
CPT/HCPCS: 99212

== ENCOUNTER → 2024-12-07 | Outpatient (CLI) | payer MEDICARE ==
--- NOTE | 2024-12-07 11:05 | US ---
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 Pt also states palpable lump le ft anterior chest. Pt states h/o colon CA TECHNIQUE: Left axilla and left anterior chest FINDINGS: Left axilla shoes normal appearing lymph node= 1.2 x 0.5 x 0.4 cm with cortical thickness= 1 mm In area of pt's palpable lump left anterior chest there is a hypoechoic, solid lesion= 2.7 x 1.2 x 2. 3 cm with posterior acoustic enhancement. No abnormality visualized left anterior chest in area of pt's pain IMPRESSION: What is thought to be a cystic lesion in the area of palpable abnormality in the left ant erior chest. Correlate for history of trauma. Given patient's history of cancer, a necrotic lymph nod e is not excluded. Consider tissue sampling for further evaluation. [facility], , 12/07/2024 11:03 AM
== END | disposition home or self-care (01) ==
LOC: RADUSWWP 10:12
PROVIDERS: ATTEND Internal Medicine
DX: C54.9 Malignant neoplasm of corpus uteri, unspecified (principal); N18.9 Chronic kidney disease, unspecified; I10 Essential (primary) hypertension; E78.5 Hyperlipidemia, unspecified; C18.4 Malignant neoplasm of transverse colon; Z80.8 Family history of malignant neoplasm of other organs or systems; E03.9 Hypothyroidism, unspecified; Z80.9 Family history of malignant neoplasm, unspecified

== ENCOUNTER 2025-01-07 08:06 | Day surgery (SDC) | payer MEDICARE ==
[2025-01-07 08:57] LABS: Glucose,Whole Blood 98 mg/dL (70-110)
[2025-01-07 09:03] VITALS: BP 109/57; PULSE 61; RESP 16; TEMP 98.3
--- NOTE | 2025-01-07 09:54 | US ---
EXAMINATION TYPE: US discontinued FNA panel DATE OF EXAM: 01/07/2025 9:46 AM COMPARISON: None. CLINICAL INDICATION: Female, 79 years old with history of R59.0; , thyroid nodule TECHNIQUE/FINDINGS: Preliminary imaging of the area of concern demonstrates no evidence of a mass. IMPRESSION: 1. Discontinued biopsy with apparent resolution of mass. Correlate clinically. [facility], , 01/07/2025 9:52 AM
== END 2025-01-07 09:40 | disposition home or self-care (01) ==
LOC: RADPROMAIN 08:06
PROVIDERS: ATTEND Internal Medicine
DX: Z53.8 Procedure and treatment not carried out for other reasons (principal); R59.0 Localized enlarged lymph nodes
CPT/HCPCS: 76536

== ENCOUNTER → 2025-01-27 | Outpatient (CLI) | payer MEDICARE ==
[2025-01-27 13:12] VITALS: BP 87/54; PULSE 78; RESP 16; TEMP 98.3
--- NOTE | 2025-01-27 13:31 | P.PROGSL ---
Subjective DATE: 01/27/2025 FOLLOW UP VISIT. Patient with obstructive sleep apnea hypopnea syndrome return to sleep center for follow-up visit. Information from previous visit have been reviewed. Patient is using PAP equipment every night for the whole night, getting PAP supplies in time. The patient does not have significant problems with the mask, PAP unit and humidification. [place] sleepiness scale is 8, which is normal. I checked information from PAP unit. PAP unit pressure 5-14, average 12.5 cm H2O. Usage is 100% for more then 4 hours, average 5.3 hours per night. Leak is 14 l/m, which is in acceptable range. Apnea Hypopnea Index is 15.7, which include central 2.9. Presents showed improvements comparing with previous visit when apnea hypopnea index was 19.5 and increased maximal pressure to 14. MEDICATIONS have been reviewed, please see below. During physical exam: GENERAL: A pleasant patient without any distress. VITAL SIGNS: Please see below, weight is 128 lbs. HEENT: PERRLA, EOMI.low position of soft palate, Mallapati 3-4. NECK: Supple. No JVD. LUNGS: Clear to percussion and to auscultation. Good air exchange. No wheezing or rhonchi. HEART: S1, S2 regular. ABDOMEN: Soft and nontender.[] EXTREMITIES: No clubbing or cyanosis. 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 No focal deficit. Impressions: 1. Obstructive sleep apnea-hypopnea syndrome. Patient demonstrated great compliance with treatment, benefiting from treatment. Apnea hypopnea index still above normal range, although improved comparing with previous visit when pressure was increased 2. COPD and asthma. 3. Hypertension. 4. History of kidney disease, stage III. 5. Diabetes mellitus. 6. Hypothyroidism. 7. Acid reflux. 8. Hyperlipidemia. 9. Right eye blindness. 10. Periodic limb movements during sleep study. no complaints. 11. Status post treatment for ovarian cancer. 12. Status post surgical treatment for colon cancer in 2022. I changed a range of pressure to 5-15 cm of water. Plan: 1. Continue using PAP equipment every night for the whole night. 2. Sleep hygiene with regular time in bed for at least 7.5-8 hours 3. PAP unit should stay lower then position of the head. 4. Advised patient to remove all remaining water from humidifier canister daily and make it dry after each usage. Refill canister with fresh distilled water before each usage. 5. Watching weight. 6. Precautions related to driving. No driving if feel any sleepiness. 7. I will maintain prescription for PAP supplies including mask, tube, filters. 8. Follow up visit in 3 months or earlier if patient has any problems. Thank you very much for allowing me to participate in the management of your patient. Michel Nelson MD, PhD, FAASM. Diplomat of [employer] [employer], Sleep Medicine Board by [employer] Jockey Agent of [facility] [place] Objective - Vital Signs Vital Signs: Vital Signs Temp 98.3 F 01/27/25 13:12 Pulse 78 01/27/25 13:12 Resp 16 01/27/25 13:12 BP 87/54 01/27/25 13:12 Pulse Ox 96 01/27/25 13:12 FiO2 Intake & Output 01/26/25 01/27/25 01/27/25 18:59 06:59 18:59 Weight 58.06 kg Home Medications: Home Medications Medication Instructions Recorded Confirmed Type Simvastatin [Zocor] 20 mg PO HS 10/15/14 01/27/25 History Levothyroxine Sodium [Synthroid] 100 mcg PO QAM 05/30/16 12/22/24 History DULoxetine HCL [Cymbalta] 60 mg PO QAM 09/18/22 01/27/25 History Escitalopram [Lexapro] 20 mg PO QAM 09/18/22 01/27/25 History Furosemide [Lasix] 40 mg PO DAILY 09/18/22 01/27/25 History Empaglifloz/Linaglip/Metformin 1 tab PO DAILY 11/24/24 01/27/25 History [Trijardy Xr 12.5-2.5-1,000 mg] Gabapentin [Neurontin] 100 mg PO TID 11/24/24 01/27/25 History Rivaroxaban [Xarelto] 10 mg PO DAILY 11/24/24 01/27/25 History oxyCODONE HCL/ACETAMINOPHEN 1 each PO TID 11/24/24 01/27/25 History [Oxycodone-Acetaminophen 10-300] Metoprolol Succinate (ER) [Toprol 25 mg PO DAILY 12/22/24 01/27/25 History Xl]
== END ==
LOC: 3 N SLEEP 13:01
PROVIDERS: ATTEND Internal Medicine
DX: G47.33 Obstructive sleep apnea (adult) (pediatric) (principal); J44.89 Other specified chronic obstructive pulmonary disease; I10 Essential (primary) hypertension; E11.9 Type 2 diabetes mellitus without complications; E03.9 Hypothyroidism, unspecified; K21.9 Gastro-esophageal reflux disease without esophagitis; E78.5 Hyperlipidemia, unspecified; H54.40 Blindness, one eye, unspecified eye; Z98.890 Other specified postprocedural states; Z88.0 Allergy status to penicillin
CPT/HCPCS: 99212

== ENCOUNTER → 2025-02-09 | Outpatient (CLI) | payer MEDICARE ==
[2025-02-09 18:17] LABS: Basophils # (A) 0.08 X 10*3/uL (0.00-0.10); Basophils % (A) 0.9 %; Eosinophils # (A) 0.21 X 10*3/uL (0.04-0.35); Eosinophils % (A) 2.2 %; HCT 39.5 % (37.2-46.3); HGB 12.6 g/dL (12.0-15.0); Lymphocytes # (A) 2.16 X 10*3/uL (0.90-5.00); Lymphocytes % (A) 23.1 %; MCH 30.4 pg (27.0-32.0); MCHC 31.9 g/dL (32.0-37.0); MCV 95.4 FL (80.0-97.0); Mean Platelet Volume 9.7 FL (9.5-12.2); Monocytes # (A) 0.78 X 10*3/uL (0.20-1.00); Monocytes % (A) 8.4 %; NRBC Per 100 WBC 0 X 10*3/uL (0.00-0.01); Neutrophils # (A) 6.08 X 10*3/uL (1.80-7.70); Neutrophils % (A) 65.1 %; Platelet Count 316 X 10*3/uL (140-440); RBC 4.14 X 10*6/uL (4.10-5.20); RDW 13.2 % (11.5-14.5); WBC 9.34 X 10*3/uL (4.50-10.00)
[2025-02-09 18:58] LABS: Albumin 4.6 g/dL (3.8-4.9); BUN/Creat Ratio 25.38 Ratio (12.00-20.00); Blood Urea Nitrogen 40.6 mg/dL (9.0-27.0); Calcium 10.3 mg/dL (8.7-10.3); Carbon Dioxide 26.9 mmol/L (21.6-31.8); Chloride 98 mmol/L (96-109); Glucose 111 mg/dL (70-110); Iron 76 UG/DL (50-170); Magnesium 1.6 mg/dL (1.5-2.4); Phosphorus 4.2 mg/dL (2.4-5.1); Potassium 4.4 mmol/L (3.5-5.5); Sodium 141 mmol/L (135-145); T4, Free (Free Thyroxine) 0.78 ng/dL (0.80-1.80); Total Iron Binding Capacity 455 UG/DL (228-460); Uric Acid 8.2 mg/dL (2.9-7.7)
[2025-02-10 02:18] LABS: Urine Creatinine 33.2 mg/dL (28.0-217.0)
[2025-02-10 04:07] LABS: Appearance,Urine Clear (Clear); Bilirubin,Urine Negative (Negative); Blood,Urine Negative (Negative); Color,Urine Yellow (Yellow); Ketones,Urine Negative (Negative); Nitrite,Urine Positive (Negative); Urobilinogen,Urine 0.2 E.U./DL
[2025-02-10 05:23] LABS: Bacteria,Urine 3+ (None Seen)
== END | disposition home or self-care (01) ==
LOC: LABWHC1 14:43
PROVIDERS: ATTEND Internal Medicine
DX: C18.4 Malignant neoplasm of transverse colon (principal); C54.9 Malignant neoplasm of corpus uteri, unspecified; D63.1 Anemia in chronic kidney disease; N18.32 Chronic kidney disease, stage 3b; E07.9 Disorder of thyroid, unspecified; E55.9 Vitamin D deficiency, unspecified; N25.81 Secondary hyperparathyroidism of renal origin; M10.9 Gout, unspecified; N39.0 Urinary tract infection, site not specified; Z80.8 Family history of malignant neoplasm of other organs or systems
CPT/HCPCS: 36415; 80048; 81001; 82040; 82043; 82306; 82378; 82570; 82607; 82728; 82746; 83540; 83550; 83735; 83921; 83970; 84100; 84439; 84443; 84481; 84550; 85025

== ENCOUNTER → 2025-03-17 | Outpatient (CLI) | payer MEDICARE ==
[2025-03-17 15:18] LABS: BUN/Creat Ratio 21.79 Ratio (12.00-20.00); Blood Urea Nitrogen 30.5 mg/dL (9.0-27.0); Calcium 9.3 mg/dL (8.7-10.3); Carbon Dioxide 25.2 mmol/L (21.6-31.8); Chloride 100 mmol/L (96-109); Glucose 141 mg/dL (70-110); Potassium 4.1 mmol/L (3.5-5.5); Sodium 138 mmol/L (135-145)
== END | disposition home or self-care (01) ==
LOC: LABWHC1 11:35
PROVIDERS: ATTEND Nurse Practitioner Family
DX: N18.32 Chronic kidney disease, stage 3b (principal)
CPT/HCPCS: 36415; 80048

== ENCOUNTER → 2025-03-23 | Outpatient (CLI) | payer MEDICARE ==
[2025-03-23 11:48] LABS: African American GFR (CKD) 39 (>60 ml/min/1.73 sqM); Blood Urea Nitrogen 32 mg/dL (7-17); Non-African American GFR(CKD) 34 (>60 ml/min/1.73 sqM)
--- NOTE | 2025-03-23 15:13 | CT ---
EXAMINATION TYPE: CT ChestAbdPelvis w con DATE OF EXAM: 03/23/2025 12:21 PM COMPARISON: None. 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 CT scan of the chest, abdomen and pe lvis is performed without Oral Contrast and with IV Contrast, patient injected with 70 ml mL of Isovu e 300. CT DLP: 988 mGycm, Automated exposure control for dose reduction was used. FINDINGS: CT Chest: LUNGS: The lungs are clear and free of infiltrate or atelectasis. No pulmonary nodule or mass is det ected. No pleural effusion or CT evidence of interstitial lung disease. MEDIASTINUM: Thoracic aorta is of normal caliber. The heart is not enlarged. No evidence for media stinal mass or adenopathy. HEART: Size within normal limits. No significant coronary artery calcifications. HILAR STRUCTURES: No evidence for mass. No hilar adenopathy is appreciated. OTHER: No significant abnormality. CONTRAST CT ABDOMEN AND PELVIS FINDINGS: LIVER/GB: No calcified gallstones. No space occupying hepatic lesion. Biliary tree is of normal ca liber. PANCREAS: No inflammation. No distinct mass. SPLEEN: No splenic enlargement. No lesion seen. ADRENALS: No nodule. No thickening. KIDNEYS/BLADDER: No hydronephrosis. No nephrolithiasis. No disctinct renal mass. BOWEL: Normal appendix. Normal bowel caliber. No inflammation. Postoperative changes about the stom ach. GENITAL ORGANS: Hysterectomy changes. No evidence for vaginal cuff mass. No adnexal masses. LYMPH NODES: No greater than 1cm abdominal or pelvic lymph nodes are appreciated. AORTA: No significant abnormality. Bilateral common iliac stents are in place. OSSEOUS STRUCTURES: Degenerative and postoperative changes of the lumbar spine. OTHER: No significant additional abnormality is seen. IMPRESSION: 1. No evidence for metastatic disease or recurrent disease. [facility], , 03/23/2025 3:10 PM
== END | disposition home or self-care (01) ==
LOC: RADCTMAIN 11:03
PROVIDERS: ATTEND Internal Medicine
DX: C18.4 Malignant neoplasm of transverse colon (principal); C54.9 Malignant neoplasm of corpus uteri, unspecified; N18.9 Chronic kidney disease, unspecified; I10 Essential (primary) hypertension; E78.5 Hyperlipidemia, unspecified; J44.9 Chronic obstructive pulmonary disease, unspecified; Z80.8 Family history of malignant neoplasm of other organs or systems; E11.9 Type 2 diabetes mellitus without complications
CPT/HCPCS: 82565; 84520; 71260; 74177; 36415; Q9967